=== PATIENT | female | born 1950 | race Two or more races ===

== ENCOUNTER 2020-01-19 11:16 | Inpatient (IN) | payer MEDICARE, MEDICAID ==
[~2020-01-19] VITALS: Ht 152.4 cm; Wt 95.2 kg
[~2020-01-19 11:16] MED LIST: BACL10TA PO; CARV6.2551 PO; CELE100C82 PO; FLUT0.05 NAS; FLUT1INH6 IN; FURO1TAB31 PO; INSU100I33 SC; LISI2.5T47 PO; PREG75CA PO; RIV20T PO; SIMV-8 PO; SITA50TA28 PO; SPIR25TA8 PO; TRAM50TA2 PO
[2020-01-19 11:47] LABS: Basophils # (auto) 0 10 ^3/uL (0-0.2); Basophils % (auto) 0.4 % (0.0-2.0); Eosinophils # (auto) 0.2 10 ^3/uL (0-0.8); Eosinophils % (auto) 1.9 % (0.0-7.0); Hematocrit 40.7 % (36.0-46.0); Hemoglobin 13.4 g/dL (12.2-16.2); Lymphocytes # (auto) 1.1 10 ^3/uL (0.4-5.4); Lymphocytes % (auto) 11.6 % (10.0-50.0); Mean Corpuscular Hemoglobin 29.8 pg (28.0-32.0); Mean Corpuscular Volume 90.4 fL (80.0-100.0); Monocytes # (auto) 0.6 10 ^3/uL (0-1.3); Monocytes % (auto) 6.3 % (0.0-12.0); Neutrophils # (auto) 7.8 10 ^3/uL (1.6-8.6); Neutrophils % (auto) 79.8 % (37.0-80.0); Nucleated Red Blood Cells % 0.1 %; Platelet Count (auto) 192 10^3/uL (140-450); Red Cell Distribution Width 16.8 % (11.8-14.3); White Blood Cell 9.8 10^3/uL (4.4-10.8)
[2020-01-19 12:04] LABS: Albumin 3.3 g/dL (3.4-5.0); Anion Gap 9 (5-15); Blood Urea Nitrogen 44 mg/dL (7-18); Calcium 8.7 mg/dL (8.5-10.1); Carbon Dioxide 24 mmol/L (21-32); Chloride 103 mmol/L (98-107); Glucose 113 mg/dL (74-106); Magnesium 2.6 mg/dL (1.6-2.6); Potassium 4.6 mmol/L (3.5-5.1); Sodium 136 mmol/L (136-145)
[2020-01-19 12:10] LABS: Alanine Aminotransferase 17 U/L (13-56); Alkaline Phosphatase 75 U/L (45-117); Aspartate Aminotransferase 14 U/L (15-37); BUN/Creatinine Ratio 23.9; Bilirubin, Total 0.5 mg/dL (0.2-1.0); GFR African American 35 mL/min; GFR Non-African American 29 mL/min; Total Protein 7.1 g/dL (6.4-8.2)
[2020-01-19] MEDS ORDERED: ONDANSETRON HCL 4 MG/2 ML VIAL IV ONE (12:15)
[2020-01-19] MEDS ORDERED: MORPHINE SULF INJ 2 MG/ML SYRINGE 1ML IV ONE (12:15)
[2020-01-19 12:53] LABS: INR 1.3 (0.9-1.15); Partial Thromboplastin Time 40.7 sec (23.64-32.05)
[2020-01-19] MEDS ORDERED: ASPirin 81 mg TAB PO ONE (14:15)
[2020-01-19] MEDS ORDERED: ACETAMINOPHEN 500 MG TAB PO PRN (14:15)
[2020-01-19] MEDS ORDERED: NITROGLYCERIN 0.4 MG SL TAB SL PRN (14:15)
[2020-01-19] MEDS ORDERED: HYDROcodone-ACET 5/325MG TAB PO PRN (14:15)
[2020-01-19] MEDS ORDERED: hydrALAZINE HCL 20 MG/ML VL IV PRN (14:15)
[2020-01-19] MEDS ORDERED: DEXTROSE (50%) 50ML SYRG IV PRN (14:15)
[2020-01-19] MEDS ORDERED: MORPHINE SULF INJ 2 MG/ML SYRINGE 1ML IV PRN ×2 (14:15)
--- NOTE | 2020-01-19 15:45 | NUR ---
PT ARRIVED TO UNIT FROM ER VIA GURNEY. PT AWAKE, ALERT, ORIENTEDx4. EFFORTLESS BREATHING ON 2LNC. DENIES CP, SOB AT MOMENT. COLOSTOMY BAG IN PLACE, VACANT AT MOMENT, PT REPORTS RECENT CHANGE. PT ORIENTED TO ROOM ENVIRONMENT, BED LOCKED AND IN LOWEST POSITION, CALL LIGHT WITHIN REACH. WILL CONTINUE TO MONITOR.
[2020-01-19 16:47] VITALS: BP 94/65
[2020-01-19] MEDS: InsuLIN REG 1unit/0.01ml Soln (100units/ml) SC SCH ×2 (17:00→22:00)
[2020-01-19] MEDS: ONDANSETRON HCL 4 MG/2 ML VIAL IV PRN (17:58)
[2020-01-19] MEDS: ACCU-CHEK COMFORT CURVE STRIP VI SCH ×2 (17:58→22:06)
[2020-01-19] MEDS: RIVAROXABAN 20 MG TAB PO SCH (17:58)
--- NOTE | 2020-01-19 19:30 | NUR ---
Opening Shift Note Report received from day shift RN. Assumed care of patient, awake and A&O x4. No S/S of distress/SOB noted and denies pain at this time. Patient has colostomy to LLQ, clean and intact. Bed locked and left in the lowest position with the side rails up x2 and the call light is left within reach. Instructed on POC and to call for assist PRN, will continue to monitor for changes Q1hr and PRN.
[2020-01-19 21:34] VITALS: BP 114/33
[2020-01-19] MEDS: CARVEDILOL 3.125 MG TAB PO SCH (21:47)
[2020-01-19] MEDS: ATORVASTATIN 20 MG TAB PO SCH (21:58)
[2020-01-19] MEDS: FAMOTIDINE 20 MG TAB PO SCH (21:58)
[2020-01-19] MEDS: CELECOXIB 100 MG CAP PO SCH (21:59)
[2020-01-19 22:00] VITALS: BP 107/60
[2020-01-19] MEDS ORDERED: METOPROLOL TARTRATE 25 MG TAB PO SCH (22:00)
[2020-01-19] MEDS ORDERED: PATIENTS OWN MEDICATION (Simvastatin 20 MG) PO SCH (22:00)
[2020-01-19] MEDS: BACLOFEN 10 MG TAB PO SCH (22:00)
--- NOTE | 2020-01-19 22:00 | NUR ---
BP REASSESSMENT LOW BP REPORTED, BP REASSESSMENT: 107/60
[2020-01-20 05:04] VITALS: BP 104/41
--- NOTE | 2020-01-20 05:35 | NUR ---
NEW IV ACCESS OBTAINED BY INSERTING A 22G TO THE RIGHT FOREARM. PATIENT TOLERATED WELL.
[2020-01-20] MEDS: BACLOFEN 10 MG TAB PO SCH ×3 (05:36→22:30)
[2020-01-20 06:43] LABS: Basophils # (auto) 0 10 ^3/uL (0-0.2); Basophils % (auto) 0.6 % (0.0-2.0); Eosinophils # (auto) 0.2 10 ^3/uL (0-0.8); Eosinophils % (auto) 2.9 % (0.0-7.0); Hematocrit 37.1 % (36.0-46.0); Hemoglobin 12.3 g/dL (12.2-16.2); Lymphocytes # (auto) 1.4 10 ^3/uL (0.4-5.4); Lymphocytes % (auto) 21.1 % (10.0-50.0); Mean Corpuscular Hgb Conc. 33.3 g/dL (32.0-36.0); Mean Corpuscular Volume 90.3 fL (80.0-100.0); Monocytes # (auto) 0.6 10 ^3/uL (0-1.3); Monocytes % (auto) 8.8 % (0.0-12.0); Neutrophils # (auto) 4.5 10 ^3/uL (1.6-8.6); Neutrophils % (auto) 66.6 % (37.0-80.0); Nucleated Red Blood Cells % 0.1 %; Platelet Count (auto) 198 10^3/uL (140-450); Red Blood Cells 4.11 10^6/uL (4.0-5.20); Red Cell Distribution Width 16.3 % (11.8-14.3); White Blood Cell 6.7 10^3/uL (4.4-10.8)
[2020-01-20 06:56] LABS: INR 1.45 (0.9-1.15); Partial Thromboplastin Time 46.5 sec (23.64-32.05)
[2020-01-20] MEDS: InsuLIN REG 1unit/0.01ml Soln (100units/ml) SC SCH ×4 (07:00→22:59)
[2020-01-20 07:05] LABS: Potassium 5.1 mmol/L (3.5-5.1)
[2020-01-20 07:09] LABS: BUN/Creatinine Ratio 22.3
[2020-01-20] MEDS: ACCU-CHEK COMFORT CURVE STRIP VI SCH ×4 (07:15→22:33)
[2020-01-20] MEDS ORDERED: ADENOSINE 79 MG in GIVE UN-DILUTED 0 ML IV STA (08:30)
[2020-01-20 09:00] VITALS: BP 109/55
[2020-01-20] MEDS: CARVEDILOL 3.125 MG TAB PO SCH ×2 (10:00→22:00)
[2020-01-20] MEDS: LISINOPRIL 10 MG TAB PO SCH (10:00)
[2020-01-20] MEDS: ASPirin-EC 81 mg tab PO SCH (10:41)
[2020-01-20] MEDS: CELECOXIB 100 MG CAP PO SCH ×2 (10:43→22:30)
[2020-01-20 13:00] VITALS: BP 105/43
[2020-01-20 16:22] VITALS: BP 122/54
[2020-01-20] MEDS: RIVAROXABAN 20 MG TAB PO SCH (17:33)
--- NOTE | 2020-01-20 18:33 | NUR ---
COLOSTOMY BAG EMPTY 375ML.
--- NOTE | 2020-01-20 19:45 | NUR ---
Opening Shift Note Assumed care of patient, patient slovak speaking, dry color tester at bedside, awake and alert, oriented x 4, clear speech, follows direction. On oxygen at 2L via NC with even and unlabored respirations, no S/S of distress/SOB. Patient has colostomy to LLQ with small amount of soft brown stool, released gas. Patient is able to turn independently in bed. PIV right forearm 22g intact and patent. Bed in lowest locked position with side rails up x 2 and call light within reach. Instructed on POC for LHC and NPO after midnight, patient verbalized understanding. Instructed to call for assist PRN, will continue to monitor for changes Q1hr and PRN.
[2020-01-20 22:00] VITALS: BP 101/48
[2020-01-20] MEDS: FAMOTIDINE 20 MG TAB PO SCH (22:29)
[2020-01-20] MEDS: ATORVASTATIN 20 MG TAB PO SCH (22:30)
--- NOTE | 2020-01-21 01:00 | NUR ---
Rounds patient resting in bed with eyes closed, noted chest rise and fall with even and unlabored respirations, no s/s of distress or SOB. Bed in lowest locked position with side rails up x 2 and call light within reach. will continue to monitor.
[2020-01-21 05:00] VITALS: BP 95/50
--- NOTE | 2020-01-21 05:25 | NUR ---
Colostomy changed colostomy was leaking, emptied 100ml loose brown stool. new colostomy was applied to patient. patient tolerated well.
--- NOTE | 2020-01-21 05:45 | NUR ---
EKG done per orders. placed in hard chart.
[2020-01-21] MEDS: BACLOFEN 10 MG TAB PO SCH ×3 (05:53→21:37)
[2020-01-21] MEDS: InsuLIN REG 1unit/0.01ml Soln (100units/ml) SC SCH ×4 (06:14→21:58)
[2020-01-21] MEDS: ACCU-CHEK COMFORT CURVE STRIP VI SCH ×4 (06:14→21:49)
[2020-01-21 06:17] LABS: Basophils # (auto) 0 10 ^3/uL (0-0.2); Basophils % (auto) 0.3 % (0.0-2.0); Eosinophils # (auto) 0.2 10 ^3/uL (0-0.8); Eosinophils % (auto) 2.5 % (0.0-7.0); Hematocrit 37.2 % (36.0-46.0); Hemoglobin 12.6 g/dL (12.2-16.2); Lymphocytes # (auto) 1.2 10 ^3/uL (0.4-5.4); Mean Corpuscular Hemoglobin 30.4 pg (28.0-32.0); Mean Corpuscular Hgb Conc. 33.7 g/dL (32.0-36.0); Mean Corpuscular Volume 90.3 fL (80.0-100.0); Monocytes # (auto) 0.5 10 ^3/uL (0-1.3); Monocytes % (auto) 8.4 % (0.0-12.0); Neutrophils # (auto) 4.2 10 ^3/uL (1.6-8.6); Neutrophils % (auto) 68.8 % (37.0-80.0); Nucleated Red Blood Cells % 0.1 %; Platelet Count (auto) 196 10^3/uL (140-450); Red Blood Cells 4.12 10^6/uL (4.0-5.20); Red Cell Distribution Width 16.2 % (11.8-14.3); White Blood Cell 6.1 10^3/uL (4.4-10.8)
[2020-01-21 06:23] LABS: INR 1.54 (0.9-1.15); Partial Thromboplastin Time 48.6 sec (23.64-32.05)
[2020-01-21 06:29] LABS: Potassium 4.4 mmol/L (3.5-5.1)
[2020-01-21 06:36] LABS: Albumin 3.1 g/dL (3.4-5.0); BUN/Creatinine Ratio 22.2; Calcium 8.7 mg/dL (8.5-10.1)
[2020-01-21 06:39] LABS: Bilirubin, Total 0.7 mg/dL (0.2-1.0); Total Protein 6.6 g/dL (6.4-8.2)
--- NOTE | 2020-01-21 06:49 | NUR ---
Closing Note patient resting in bed with oxygen on, even and unlabored respirations. no s/s of distress or SOB. patient remains NPO. PIV right forearm 22g intact and patent. Bed in lowest locked position with side rails up x 2 and call light within reach.
--- NOTE | 2020-01-21 07:35 | NUR ---
Opening Note Received report from rn night RN. Patient is resting in bed, no signs or symptoms of distress noted at this time. Patient is on 2L NC, respirations even and unlabored. Patient is NPO for scheduled procedure today. Be in low and locked position, call light within reach. Will continue to monitor Q1 hour and PRN.
[2020-01-21] MEDS ORDERED: LIDOCAINE 2%HCL (LOCAL ANESTH.) INJ 20ML MDV ONE ×2 (08:04→12:26)
[2020-01-21] MEDS ORDERED: IODIXANOL 320MG/ML 100ML BTL IV ONE ×2 (08:04→12:26)
--- NOTE | 2020-01-21 08:55 | NUR ---
Consents signed Consents for left heart cath signed and placed in patients, translated by Devorah COVINGTON. Will continue to monitor Q1 hour and PRN.
[2020-01-21 09:00] VITALS: BP 110/31
[2020-01-21] MEDS: ONDANSETRON HCL 4 MG/2 ML VIAL IV PRN ×2 (09:00→21:37)
--- NOTE | 2020-01-21 09:00 | NUR ---
Nausea Patient complains of nausea, will mediate per orders. Will continue to monitor Q1 hour and PRN.
[2020-01-21] MEDS: CARVEDILOL 3.125 MG TAB PO SCH ×2 (09:24→21:37)
[2020-01-21] MEDS: ASPirin-EC 81 mg tab PO SCH (09:24)
[2020-01-21] MEDS: CELECOXIB 100 MG CAP PO SCH ×2 (09:25→21:36)
[2020-01-21] MEDS: FUROSEMIDE 20 MG TAB PO SCH (09:26)
[2020-01-21] MEDS: POTASSIUM CHL 20 Meq TABLET PO SCH (09:26)
[2020-01-21] MEDS: LISINOPRIL 10 MG TAB PO SCH (09:27)
--- NOTE | 2020-01-21 11:19 | NUR ---
Dr. Laurence Salvador at bedside Discussing plan of care with patient and this RN. No new orders received. Will continue to monitor Q1 hour and PRN.
--- NOTE | 2020-01-21 12:06 | NUR ---
Patient taken down to wood preserving plant laborer
[2020-01-21 13:00] VITALS: BP 104/44
[2020-01-21] MEDS ORDERED: ANGIOMAX 250 MG VIAL IV ONE (13:15)
[2020-01-21] MEDS ORDERED: fentaNYL CITRATE 100 MCG/2 ML VL ONE (13:41)
[2020-01-21] MEDS ORDERED: MIDAZOLAM HCL 1MG/1ML-2 ML VIAL ONE (13:42)
[2020-01-21] MEDS ORDERED: TICAGRELOR 90 MG TAB ONE (13:46)
[2020-01-21] MEDS ORDERED: SODIUM CHL 0.9% 50 ML ONE (13:46)
--- NOTE | 2020-01-21 13:48 | NUR ---
Patient back form construction laborer Patient is s/p left heart cath. Per report patient is to lay flat until 1600. Dressing top right groin clean, dry and intact. Area soft when palpated. Patient denies pain at this time. Patient educated and verbalized understanding. Bed in low and locked position, call light within reach. Bed alarm on for safety. Will continue to monitor Q1 hour and PRN.
[2020-01-21] MEDS ORDERED: SODIUM CHL 0.9% 500 ML IV ONE (14:00)
[2020-01-21 17:00] VITALS: BP 117/48
[2020-01-21] MEDS: RIVAROXABAN 20 MG TAB PO SCH (17:40)
--- NOTE | 2020-01-21 18:25 | NUR ---
Colostomy emptied 150mls loose brown stool emptied
--- NOTE | 2020-01-21 19:15 | NUR ---
Closing Note Report given to manufacturing supervisor 2nd shift RN.No signs or symptoms of distress noted at this time.
[2020-01-21 20:20] VITALS: BP 146/51
[2020-01-21 21:00] VITALS: BP 106/51
[2020-01-21] MEDS: TICAGRELOR 90 MG TAB PO SCH (21:35)
[2020-01-21] MEDS: FAMOTIDINE 20 MG TAB PO SCH (21:36)
[2020-01-21] MEDS: ATORVASTATIN 20 MG TAB PO SCH (21:36)
[2020-01-22 04:50] VITALS: BP 102/51
[2020-01-22 06:01] LABS: Basophils # (auto) 0 10 ^3/uL (0-0.2); Basophils % (auto) 0.2 % (0.0-2.0); Eosinophils # (auto) 0.1 10 ^3/uL (0-0.8); Eosinophils % (auto) 1.2 % (0.0-7.0); Hematocrit 35.8 % (36.0-46.0); Hemoglobin 12.3 g/dL (12.2-16.2); Lymphocytes # (auto) 0.8 10 ^3/uL (0.4-5.4); Lymphocytes % (auto) 10.1 % (10.0-50.0); Mean Corpuscular Hemoglobin 30.3 pg (28.0-32.0); Mean Corpuscular Hgb Conc. 34.3 g/dL (32.0-36.0); Mean Corpuscular Volume 88.4 fL (80.0-100.0); Monocytes # (auto) 0.7 10 ^3/uL (0-1.3); Monocytes % (auto) 8.7 % (0.0-12.0); Neutrophils # (auto) 6.2 10 ^3/uL (1.6-8.6); Neutrophils % (auto) 79.8 % (37.0-80.0); Platelet Count (auto) 204 10^3/uL (140-450); Red Blood Cells 4.05 10^6/uL (4.0-5.20); Red Cell Distribution Width 16.1 % (11.8-14.3); White Blood Cell 7.7 10^3/uL (4.4-10.8)
[2020-01-22 06:19] LABS: Albumin 3.2 g/dL (3.4-5.0); Calcium 8.7 mg/dL (8.5-10.1); Potassium 4.4 mmol/L (3.5-5.1)
[2020-01-22 06:22] LABS: BUN/Creatinine Ratio 17.3; Bilirubin, Total 0.9 mg/dL (0.2-1.0); Total Protein 6.7 g/dL (6.4-8.2)
[2020-01-22] MEDS: BACLOFEN 10 MG TAB PO SCH ×3 (06:53→21:29)
[2020-01-22] MEDS: InsuLIN REG 1unit/0.01ml Soln (100units/ml) SC SCH ×4 (06:55→22:26)
[2020-01-22] MEDS: ACCU-CHEK COMFORT CURVE STRIP VI SCH ×4 (06:55→22:26)
--- NOTE | 2020-01-22 07:40 | NUR ---
Opening Note Received report from restaurant shift leader RN. Patient is awake, alert and oriented. Patient is on room air, respirations even and unlabored. Dressing to right groin is clean, dry and intact. Patient denies pain at this time. Bed in low and locked position, call light within reach. Will continue to monitor Q1 hour and PRN.
[2020-01-22 09:00] VITALS: BP 119/54
[2020-01-22] MEDS: POTASSIUM CHL 20 Meq TABLET PO SCH (09:48)
[2020-01-22] MEDS: ASPirin-EC 81 mg tab PO SCH (09:48)
[2020-01-22] MEDS: CELECOXIB 100 MG CAP PO SCH ×2 (09:49→21:29)
[2020-01-22] MEDS: TICAGRELOR 90 MG TAB PO SCH ×2 (09:49→21:28)
[2020-01-22] MEDS: LISINOPRIL 10 MG TAB PO SCH (09:49)
[2020-01-22] MEDS: CARVEDILOL 3.125 MG TAB PO SCH ×2 (09:49→22:00)
[2020-01-22] MEDS: FUROSEMIDE 20 MG TAB PO SCH (09:49)
--- NOTE | 2020-01-22 09:59 | NUR ---
Dr. Laurence Salvador at bedside Discussing plan of care with patient and this RN. Will continue to monitor Q1 hour and PRN.
[2020-01-22 13:00] VITALS: BP 118/63
[2020-01-22] MEDS: RIVAROXABAN 20 MG TAB PO SCH (16:59)
[2020-01-22 17:00] VITALS: BP 134/53
--- NOTE | 2020-01-22 19:05 | NUR ---
Closing Note Report given to maintenance technician 2nd shift RN. Patient resting in bed, no signs or symptoms of distress noted at this time.
--- NOTE | 2020-01-22 19:25 | NUR ---
Opening Shift Note Assumed care of patient, awake and alert. No S/S of distress/SOB or pain. Instructed on POC and to call for assist PRN, will continue to monitor for changes Q1hr and PRN. Call light and bedside table are within reach. Safety precautions maintained bed rails 2x and bed is in lowest position.
[2020-01-22] MEDS: FAMOTIDINE 20 MG TAB PO SCH (21:28)
[2020-01-22] MEDS: ATORVASTATIN 20 MG TAB PO SCH (21:29)
[2020-01-22 21:52] VITALS: BP 124/39
--- NOTE | 2020-01-23 04:38 | NUR ---
Endorsed care to Christine COVINGTON Gave report.
--- NOTE | 2020-01-23 04:40 | NUR ---
Opening Shift Note/ REPORT RECEIVED FROM JEMIMA COVINGTON Assumed care of patient, awake and alert. No S/S of distress/SOB or pain. Instructed on POC and to call for assist PRN, will continue to monitor for changes Q1hr and PRN. bed in low position call light within reach. bed alarm on.
[2020-01-23 05:55] LABS: Albumin 3.2 g/dL (3.4-5.0); Calcium 8.6 mg/dL (8.5-10.1); Potassium 4.6 mmol/L (3.5-5.1)
[2020-01-23 06:00] VITALS: BP 136/70
[2020-01-23 06:00] LABS: BUN/Creatinine Ratio 14.9; Bilirubin, Total 0.9 mg/dL (0.2-1.0); Total Protein 6.6 g/dL (6.4-8.2)
[2020-01-23] MEDS: BACLOFEN 10 MG TAB PO SCH (06:17)
[2020-01-23] MEDS: ACCU-CHEK COMFORT CURVE STRIP VI SCH ×2 (06:22→11:30)
[2020-01-23] MEDS: InsuLIN REG 1unit/0.01ml Soln (100units/ml) SC SCH ×2 (06:22→11:30)
--- NOTE | 2020-01-23 07:20 | NUR ---
REPORT GIVEN TO NELIA COVINGTON. PATIENT DENIES SOB DISTRESS OR PAIN. FALL PRECAUTIONS IN PLACE
--- NOTE | 2020-01-23 07:25 | NUR ---
Opening Note Received report from maintenance supervisor 2nd shift RN. Patient is resting in bed, no signs or symptoms of distress noted at this time. Patient is on 2L NC, respirations even and unlabored. Bed in low and locked position, call light within reach. Will continue to monitor Q1 hour and PRN
[2020-01-23 09:00] VITALS: BP 126/29
[2020-01-23] MEDS: FUROSEMIDE 20 MG TAB PO SCH (09:51)
[2020-01-23] MEDS: ASPirin-EC 81 mg tab PO SCH (09:51)
[2020-01-23] MEDS: POTASSIUM CHL 20 Meq TABLET PO SCH (09:51)
[2020-01-23] MEDS: CELECOXIB 100 MG CAP PO SCH (09:51)
[2020-01-23] MEDS: TICAGRELOR 90 MG TAB PO SCH (09:51)
[2020-01-23] MEDS: LISINOPRIL 10 MG TAB PO SCH (09:52)
[2020-01-23] MEDS: CARVEDILOL 3.125 MG TAB PO SCH (09:53)
--- NOTE | 2020-01-23 10:20 | NUR ---
Dr. Laurence Salvador at bedside Discussing plan of care with patient and this RN. Patient to discharge home today. Will continue to monitor Q1 hour and PRN.
[2020-01-23 11:03] VITALS: BP 126/29
--- NOTE | 2020-01-23 12:51 | NUR ---
Discharge Discharge instructions given as ordered. Encourage to follow up with PMD as instructed. All questions and concerns addressed. Patient verbalized understanding. Medication reconciliation form completed and copy given to patient. IV removed with catheter intact, pressure dressing applied. Telemetry unit returned to ICU. Patient taken to vehicle via wheelchair with all personal belongings, accompanied by staff member. No signs or symptoms of distress noted at this time.
== END 2020-01-23 12:50 | disposition home or self-care (01) | DRG 246 ==
LOC: ER 11:16 → EDBD 11:16 → TELE 11:17 → TELE-WESTW 15:58
PROVIDERS: ADMIT Nurse Practitioner Acute Care; ATTEND Family Medicine
PROC: 4A023N7 Measurement of Cardiac Sampling and Pressure, Left Heart, Percutaneous Approach (ICD-10-PCS; principal; 2020-01-21)
PROC: 027035Z Dilation of Coronary Artery, One Artery with Two Drug-eluting Intraluminal Devices, Percutaneous Approach (ICD-10-PCS; 2020-01-21)
PROC: B2111ZZ Fluoroscopy of Multiple Coronary Arteries using Low Osmolar Contrast (ICD-10-PCS; 2020-01-21)
PROC: B2131ZZ Fluoroscopy of Multiple Coronary Artery Bypass Grafts using Low Osmolar Contrast (ICD-10-PCS; 2020-01-21)
PROC: 4A033BC Measurement of Arterial Pressure, Coronary, Percutaneous Approach (ICD-10-PCS; 2020-01-21)
PROC: B3121ZZ Fluoroscopy of Left Subclavian Artery using Low Osmolar Contrast (ICD-10-PCS; 2020-01-21)
PROC: B2151ZZ Fluoroscopy of Left Heart using Low Osmolar Contrast (ICD-10-PCS; 2020-01-21)
PROC: B2181ZZ Fluoroscopy of Left Internal Mammary Bypass Graft using Low Osmolar Contrast (ICD-10-PCS; 2020-01-21)
PROC: B41C1ZZ Fluoroscopy of Pelvic Arteries using Low Osmolar Contrast (ICD-10-PCS; 2020-01-21)
DX: I25.10 Atherosclerotic heart disease of native coronary artery without angina pectoris (principal); N17.0 Acute kidney failure with tubular necrosis; I50.43 Acute on chronic combined systolic (congestive) and diastolic (congestive) heart failure; I13.0 Hypertensive heart and chronic kidney disease with heart failure and stage 1 through stage 4 chronic kidney disease, or unspecified chronic kidney disease; Z68.41 Body mass index [BMI] 40.0-44.9, adult; N18.4 Chronic kidney disease, stage 4 (severe); I95.9 Hypotension, unspecified; E66.9 Obesity, unspecified; E11.22 Type 2 diabetes mellitus with diabetic chronic kidney disease; E11.40 Type 2 diabetes mellitus with diabetic neuropathy, unspecified; E78.5 Hyperlipidemia, unspecified; F41.9 Anxiety disorder, unspecified; E66.01 Morbid (severe) obesity due to excess calories; E78.00 Pure hypercholesterolemia, unspecified; J44.9 Chronic obstructive pulmonary disease, unspecified; Z79.4 Long term (current) use of insulin; Z93.3 Colostomy status; Z95.2 Presence of prosthetic heart valve; Z79.899 Other long term (current) drug therapy; Z85.038 Personal history of other malignant neoplasm of large intestine; Z85.42 Personal history of malignant neoplasm of other parts of uterus; Z86.718 Personal history of other venous thrombosis and embolism; Z87.891 Personal history of nicotine dependence; Z95.5 Presence of coronary angioplasty implant and graft; Z95.1 Presence of aortocoronary bypass graft; Z79.84 Long term (current) use of oral hypoglycemic drugs; Z90.710 Acquired absence of both cervix and uterus
CPT/HCPCS: 36225; 36415; 71045; 75736; 78452; 80048; 80053; 82962; 83036; 83735; 83880; 84443; 84484; 85025; 85610; 85730; 86141; 86850; 86900; 86901; 92928; 93005; 93017; 93306; 93458; 93571; 99152; 99153; C1874; C1887; G0378; J0153; J1815; J2250; J2405; Q9967

== ENCOUNTER 2021-11-20 08:38 | Inpatient (IN) | payer MEDICARE, MEDICAID ==
[~2021-11-20] VITALS: Ht 152.4 cm; Wt 107.9 kg
[2021-11-20 01:11] VITALS: BP 116/34
[2021-11-20] MEDS ORDERED: SODIUM CHLORIDE 0.9% 1,000 ML IV ONE (09:30)
[2021-11-20 10:00] LABS: Albumin 3.3 g/dL (3.4-5.0); Calcium 8.7 mg/dL (8.5-10.1); Magnesium 3.7 mg/dL (1.6-2.6); Potassium 5.2 mmol/L (3.5-5.1)
[2021-11-20 10:05] LABS: BUN/Creatinine Ratio 27.3; Bilirubin, Total 0.4 mg/dL (0.2-1.0); Total Protein 6.8 g/dL (6.4-8.2)
[2021-11-20 10:15] LABS: Basophils # (auto) 0 10 ^3/uL (0-0.2); Basophils % (auto) 0.4 % (0.0-2.0); Eosinophils # (auto) 0.2 10 ^3/uL (0-0.8); Hemoglobin 7.8 g/dL (12.2-16.2); Monocytes # (auto) 0.9 10 ^3/uL (0-1.3)
[2021-11-20 10:18] LABS: Eosinophils % (auto) 2.1 % (0.0-7.0); Hematocrit 25.3 % (36.0-46.0); Lymphocytes % (auto) 10.1 % (10.0-50.0); Mean Corpuscular Hemoglobin 21.6 pg (28.0-32.0); Mean Corpuscular Hgb Conc. 30.9 g/dL (32.0-36.0); Monocytes % (auto) 8.9 % (0.0-12.0); Neutrophils # (auto) 7.8 10 ^3/uL (1.6-8.6); Neutrophils % (auto) 78.5 % (37.0-80.0); Red Blood Cells 3.62 10^6/uL (4.0-5.20); Red Cell Distribution Width 20.4 % (11.8-14.3)
[2021-11-20] MEDS ORDERED: DEXTROSE 50% SYRINGE 50 ML IV ONE (10:21)
[2021-11-20] MEDS ORDERED: DEXTROSE (50%) 50ML SYRG IV ONE ×2 (10:30→17:15)
[2021-11-20 12:41] LABS: Urine Bacteria NONE SEEN /hpf (None Seen); Urine Blood Negative /uL (Negative); Urine Specific Gravity 1.015 (1.001-1.035); Urine WBC <1 /hpf (0 - 5)
[2021-11-20] MEDS ORDERED: SODIUM ZIRCONIUM CYCL 10 GM PAK PO ONE (13:45)
[2021-11-20] MEDS ORDERED: SODIUM BICARBONATE 8.4% INJ 50ML SYRINGE IV ONE (13:45)
[2021-11-20] MEDS ORDERED: CALCIUM GLUC 1,000mg/50ml-NS 50 ML IV ONE (13:45)
[2021-11-20] MEDS ORDERED: FUROSEMIDE 20 MG/2 ML VIAL IV ONE (13:45)
[2021-11-20] MEDS ORDERED: NITROGLYCERIN 0.4 MG SL TAB SL PRN (15:30)
[2021-11-20] MEDS ORDERED: MORPHINE SULFATE INJECTION 2 MG/ML SYRG IV PRN ×2 (15:30→19:15)
[2021-11-20] MEDS ORDERED: D5W 5% 1,000 ML IV SCH (17:15)
[2021-11-20] MEDS ORDERED: LACTULOSE 20Gm/30ML SOLN PO PRN (19:15)
[2021-11-20] MEDS ORDERED: hydrALAZINE HCL 20 MG/ML VL IV PRN (19:15)
[2021-11-20] MEDS ORDERED: IPRATROPIUM BROM 0.5 MG/2.5ML INH SOL NEB ONE (19:15)
[2021-11-20] MEDS ORDERED: HYDROcodone-ACET 5/325MG TAB PO ONE (19:15)
[2021-11-20] MEDS ORDERED: HYDROcodone-ACET 5/325MG TAB PO PRN (19:15)
[2021-11-20] MEDS ORDERED: DOCUSATE SOD 100 MG CAP PO PRN (19:15)
[2021-11-20] MEDS ORDERED: SODIUM CHLORIDE 0.9% 1,000 ML IV SCH (19:15)
[2021-11-20] MEDS ORDERED: IPRATROPIUM BROM 0.5 MG/2.5ML INH SOL NEB PRN (22:00)
[2021-11-20] MEDS ORDERED: IPRATROPIUM BROM 0.5 MG/2.5ML INH SOL NEB SCH (22:00)
[2021-11-20 22:40] LABS: INR 1.21 (0.9-1.15); Partial Thromboplastin Time 36.6 sec (23.6-33.0)
[2021-11-20 22:47] LABS: Magnesium 3.1 mg/dL (1.6-2.6)
[2021-11-20 22:49] LABS: Phosphorus 3.6 mg/dL (2.5-4.90)
[2021-11-20] MEDS: PANTOPRAZOLE 40 MG/10 ML VIAL INJ IV SCH (23:00)
[2021-11-20] MEDS: ATORVASTATIN 20 MG TAB PO SCH (23:00)
[2021-11-21] VITALS (7 sets, daily range): BP systolic 124–138; BP diastolic 43–65
[2021-11-21 06:43] LABS: Basophils # (auto) 0 10 ^3/uL (0-0.2); Basophils % (auto) 0.2 % (0.0-2.0); Eosinophils # (auto) 0.1 10 ^3/uL (0-0.8); Hematocrit 22.5 % (36.0-46.0); Lymphocytes # (auto) 0.9 10 ^3/uL (0.4-5.4); Lymphocytes % (auto) 8.5 % (10.0-50.0); Mean Corpuscular Hemoglobin 21.3 pg (28.0-32.0); Mean Corpuscular Hgb Conc. 31.1 g/dL (32.0-36.0); Monocytes % (auto) 9.5 % (0.0-12.0); Neutrophils # (auto) 8.4 10 ^3/uL (1.6-8.6); Neutrophils % (auto) 80.8 % (37.0-80.0); Nucleated Red Blood Cells % 0.1 %; Red Blood Cells 3.28 10^6/uL (4.0-5.20); White Blood Cell 10.3 10^3/uL (4.4-10.8)
[2021-11-21 06:47] LABS: Mean Corpuscular Volume 68.5 fL (80.0-100.0); Red Cell Distribution Width 20.5 % (11.8-14.3)
[2021-11-21 06:48] LABS: Albumin 2.8 g/dL (3.4-5.0); Magnesium 3.2 mg/dL (1.6-2.6); Potassium 4.4 mmol/L (3.5-5.1)
[2021-11-21 06:49] LABS: INR 1.12 (0.9-1.15)
[2021-11-21 06:52] LABS: BUN/Creatinine Ratio 24.3; Bilirubin, Total 0.6 mg/dL (0.2-1.0); Phosphorus 2.8 mg/dL (2.5-4.90); Total Protein 6.1 g/dL (6.4-8.2)
[2021-11-21 07:01] LABS: % Iron Saturation 3.6 % (15-50)
[2021-11-21] MEDS: PANTOPRAZOLE 40 MG/10 ML VIAL INJ IV SCH ×2 (10:27→22:00)
[2021-11-21] MEDS: HYDROcodone-ACET 5/325MG TAB PO PRN (11:10)
[2021-11-21] MEDS ORDERED: LISINOPRIL 20 MG TAB PO ONE (13:30)
[2021-11-21] MEDS ORDERED: ASPirin 81 mg TAB PO ONE (13:30)
[2021-11-21] MEDS: SUCRALFATE 1 GM/10 ML ORAL SUSP PO SCH (18:02)
[2021-11-21] MEDS ORDERED: CELE100C82 PO (18:05)
[2021-11-21] MEDS ORDERED: TRAM50TA2 PO ×2 (18:08→18:10)
[2021-11-21] MEDS ORDERED: PREG75CA PO (18:21)
[2021-11-21] MEDS ORDERED: SITA50TA28 PO ×2 (18:22→18:24)
[2021-11-21] MEDS ORDERED: ASPI-543 PO (18:26)
[2021-11-21] MEDS: RIVAROXABAN 20 MG TAB PO SCH (21:00)
[2021-11-21] MEDS: METOPROLOL TARTRATE 25 MG TAB PO SCH (22:00)
[2021-11-21] MEDS: ATORVASTATIN 20 MG TAB PO SCH (22:00)
[2021-11-22] MEDS: ONDANSETRON HCL 4 MG/2 ML VIAL IV PRN ×2 (02:40→12:26)
[2021-11-22 05:00] VITALS: BP 126/68
[2021-11-22] MEDS: SUCRALFATE 1 GM/10 ML ORAL SUSP PO SCH ×2 (07:00→18:05)
[2021-11-22 07:17] LABS: Basophils # (auto) 0 10 ^3/uL (0-0.2); Hemoglobin 7.1 g/dL (12.2-16.2); Lymphocytes # (auto) 0.9 10 ^3/uL (0.4-5.4); Mean Corpuscular Hemoglobin 21.8 pg (28.0-32.0); Mean Corpuscular Hgb Conc. 31.7 g/dL (32.0-36.0); Monocytes # (auto) 1.1 10 ^3/uL (0-1.3); Nucleated Red Blood Cells % 0.1 %
[2021-11-22 07:19] LABS: Basophils % (auto) 0.2 % (0.0-2.0); Eosinophils # (auto) 0 10 ^3/uL (0-0.8); Eosinophils % (auto) 0.4 % (0.0-7.0); Hematocrit 22.5 % (36.0-46.0); Lymphocytes % (auto) 8.4 % (10.0-50.0); Mean Corpuscular Volume 68.9 fL (80.0-100.0); Monocytes % (auto) 10.4 % (0.0-12.0); Neutrophils # (auto) 8.2 10 ^3/uL (1.6-8.6); Neutrophils % (auto) 80.6 % (37.0-80.0); Red Blood Cells 3.27 10^6/uL (4.0-5.20); Red Cell Distribution Width 20.6 % (11.8-14.3); White Blood Cell 10.2 10^3/uL (4.4-10.8)
[2021-11-22 07:32] LABS: Alcohol, Urine < 3.0 mg/dL (0-10); Amphetamine Screen, Urine NEGATIVE (NEGATIVE); Barbiturate Scree,Urine NEGATIVE (NEGATIVE); Benzodiazephine Screen, Urine NEGATIVE (NEGATIVE); Cannabinoid Screen, Urine NEGATIVE (NEGATIVE); Cocaine Screen, Urine NEGATIVE (NEGATIVE); Opiate Scree,Urine NEGATIVE (NEGATIVE); Phencyclidine Screen, Urine NEGATIVE (NEGATIVE)
[2021-11-22 08:00] VITALS: BP 108/45
[2021-11-22 09:00] VITALS: BP_SYST 105; BP_SYST 108; BP_DIAS 39; BP_DIAS 52
[2021-11-22] MEDS: PANTOPRAZOLE 40 MG/10 ML VIAL INJ IV SCH ×2 (09:13→21:20)
[2021-11-22] MEDS: ASPirin 81 mg TAB PO SCH (09:13)
[2021-11-22] MEDS: METOPROLOL TARTRATE 25 MG TAB PO SCH ×2 (09:15→21:22)
[2021-11-22] MEDS: LISINOPRIL 20 MG TAB PO SCH (09:19)
[2021-11-22] MEDS: SODIUM FERR GLUC 62.5MG/5ML 125 MG in SODIUM CHL 0.9% 100 ML IV SCH (12:21)
[2021-11-22 13:00] VITALS: BP 106/43
[2021-11-22 16:04] LABS: Carcinoembryonic Antigen 0.51 ng/mL (<5.0 OR =); Folate (Folic Acid) 16.85 ng/mL (5.38-24)
[2021-11-22 16:42] VITALS: BP 122/48
[2021-11-22] MEDS: RIVAROXABAN 20 MG TAB PO SCH (18:05)
[2021-11-22 20:00] VITALS: BP 99/48
[2021-11-22] MEDS ORDERED: EPOETIN ALFA-EPBX 10,000 UNIT/1ML VIAL SC ONE (21:00)
[2021-11-22] MEDS: ATORVASTATIN 20 MG TAB PO SCH (21:21)
[2021-11-22] MEDS ORDERED: DEXTROSE (50%) 50ML SYRG IV ONE (23:45)
[2021-11-23] MEDS: SUCRALFATE 1 GM/10 ML ORAL SUSP PO SCH ×2 (06:44→17:06)
[2021-11-23 09:00] VITALS: BP 103/50
[2021-11-23] MEDS: ASPirin 81 mg TAB PO SCH (10:12)
[2021-11-23] MEDS: PANTOPRAZOLE 40 MG/10 ML VIAL INJ IV SCH ×2 (10:12→22:11)
[2021-11-23] MEDS: LISINOPRIL 20 MG TAB PO SCH (10:13)
[2021-11-23] MEDS: METOPROLOL TARTRATE 25 MG TAB PO SCH ×2 (10:13→22:00)
[2021-11-23] MEDS ORDERED: DEXTROSE (50%) 50ML SYRG IV PRN (11:30)
[2021-11-23 11:47] LABS: Basophils # (auto) 0 10 ^3/uL (0-0.2); Eosinophils # (auto) 0 10 ^3/uL (0-0.8); Eosinophils % (auto) 0.5 % (0.0-7.0); Monocytes # (auto) 0.9 10 ^3/uL (0-1.3); Neutrophils # (auto) 7.2 10 ^3/uL (1.6-8.6)
[2021-11-23 11:49] LABS: Basophils % (auto) 0.2 % (0.0-2.0); Hematocrit 23.2 % (36.0-46.0); Hemoglobin 7.2 g/dL (12.2-16.2); Lymphocytes # (auto) 0.7 10 ^3/uL (0.4-5.4); Lymphocytes % (auto) 8.1 % (10.0-50.0); Mean Corpuscular Hgb Conc. 31.1 g/dL (32.0-36.0); Monocytes % (auto) 9.6 % (0.0-12.0); Neutrophils % (auto) 81.6 % (37.0-80.0); Nucleated Red Blood Cells % 0.2 %; Red Blood Cells 3.37 10^6/uL (4.0-5.20); White Blood Cell 8.8 10^3/uL (4.4-10.8)
[2021-11-23 11:52] LABS: Mean Corpuscular Volume 68.9 fL (80.0-100.0)
[2021-11-23 11:53] LABS: Mean Corpuscular Hemoglobin 21.4 pg (28.0-32.0); Red Cell Distribution Width 21.1 % (11.8-14.3)
[2021-11-23] MEDS: InsuLIN REG 1unit/0.01ml Soln (100units/ml) SC SCH ×2 (12:00→18:00)
[2021-11-23] MEDS: ACCU-CHEK COMFORT CURVE STRIP VI SCH ×3 (12:15→23:49)
[2021-11-23] MEDS: SODIUM FERR GLUC 62.5MG/5ML 125 MG in SODIUM CHL 0.9% 100 ML IV SCH (12:17)
[2021-11-23 13:00] VITALS: BP 107/61
[2021-11-23 17:00] VITALS: BP 117/47
[2021-11-23] MEDS: LORazepam 0.5 MG TAB PO PRN (17:06)
[2021-11-23] MEDS: RIVAROXABAN 20 MG TAB PO SCH (17:06)
[2021-11-23 22:00] VITALS: BP 106/31
[2021-11-23] MEDS: ATORVASTATIN 20 MG TAB PO SCH (22:11)
[2021-11-24 05:00] VITALS: BP 118/41
[2021-11-24 05:44] VITALS: BP 118/52
[2021-11-24] MEDS: InsuLIN REG 1unit/0.01ml Soln (100units/ml) SC SCH ×5 (05:48→23:40)
[2021-11-24] MEDS: ACCU-CHEK COMFORT CURVE STRIP VI SCH ×4 (05:48→23:40)
[2021-11-24 05:55] LABS: Eosinophils # (auto) 0.2 10 ^3/uL (0-0.8); Hematocrit 22.4 % (36.0-46.0); Neutrophils # (auto) 7.3 10 ^3/uL (1.6-8.6); Nucleated Red Blood Cells % 0.5 %; White Blood Cell 9.6 10^3/uL (4.4-10.8)
[2021-11-24 05:59] LABS: Basophils # (auto) 0.1 10 ^3/uL (0-0.2); Basophils % (auto) 0.6 % (0.0-2.0); Eosinophils % (auto) 2.6 % (0.0-7.0); Hemoglobin 7.2 g/dL (12.2-16.2); Lymphocytes # (auto) 0.9 10 ^3/uL (0.4-5.4); Lymphocytes % (auto) 9.7 % (10.0-50.0); Mean Corpuscular Hemoglobin 22.3 pg (28.0-32.0); Mean Corpuscular Hgb Conc. 32.2 g/dL (32.0-36.0); Mean Corpuscular Volume 69.2 fL (80.0-100.0); Monocytes % (auto) 10.8 % (0.0-12.0); Neutrophils % (auto) 76.3 % (37.0-80.0); Red Blood Cells 3.24 10^6/uL (4.0-5.20)
[2021-11-24] MEDS: SUCRALFATE 1 GM/10 ML ORAL SUSP PO SCH ×2 (06:21→17:00)
[2021-11-24 06:30] LABS: Red Cell Distribution Width 20.5 % (11.8-14.3)
[2021-11-24 09:00] VITALS: BP 113/64
[2021-11-24] MEDS ORDERED: PANT40T PO (09:04)
[2021-11-24] MEDS ORDERED: SUCR1TAB22 OR (09:04)
[2021-11-24] MEDS ORDERED: FERR-7 PO (09:04)
[2021-11-24] MEDS: LISINOPRIL 20 MG TAB PO SCH (10:00)
[2021-11-24] MEDS: METOPROLOL TARTRATE 25 MG TAB PO SCH ×2 (10:00→22:00)
[2021-11-24] MEDS: ASPirin 81 mg TAB PO SCH (10:00)
[2021-11-24] MEDS: PANTOPRAZOLE 40 MG/10 ML VIAL INJ IV SCH ×2 (10:00→22:32)
[2021-11-24] MEDS: SODIUM FERR GLUC 62.5MG/5ML 125 MG in SODIUM CHL 0.9% 100 ML IV SCH (12:00)
[2021-11-24 16:41] VITALS: BP 104/36
[2021-11-24] MEDS: HYDROcodone-ACET 5/325MG TAB PO PRN (17:10)
[2021-11-24 18:05] VITALS: BP 108/42
[2021-11-24] MEDS: RIVAROXABAN 20 MG TAB PO SCH (18:12)
[2021-11-24] MEDS: ATORVASTATIN 20 MG TAB PO SCH ×2 (22:00→22:33)
[2021-11-24] MEDS ORDERED: VANCOMYCIN PER PHARMACY 0 MG IV SCH (22:30)
[2021-11-24] MEDS ORDERED: VANCOMYCIN 1GM/250ML 250 ML IV ONE (22:30)
[2021-11-25] MEDS: ACCU-CHEK COMFORT CURVE STRIP VI SCH ×4 (05:52→23:11)
[2021-11-25] MEDS: InsuLIN REG 1unit/0.01ml Soln (100units/ml) SC SCH ×4 (05:52→23:11)
[2021-11-25 06:13] LABS: Basophils # (auto) 0.1 10 ^3/uL (0-0.2); Hemoglobin 7.3 g/dL (12.2-16.2); Lymphocytes # (auto) 0.9 10 ^3/uL (0.4-5.4); Neutrophils # (auto) 7.4 10 ^3/uL (1.6-8.6); Neutrophils % (auto) 75.2 % (37.0-80.0); White Blood Cell 9.8 10^3/uL (4.4-10.8)
[2021-11-25 06:17] LABS: Basophils % (auto) 0.8 % (0.0-2.0); Eosinophils # (auto) 0.4 10 ^3/uL (0-0.8); Eosinophils % (auto) 4.5 % (0.0-7.0); Hematocrit 23.1 % (36.0-46.0); Lymphocytes % (auto) 9.3 % (10.0-50.0); Mean Corpuscular Hemoglobin 22.2 pg (28.0-32.0); Mean Corpuscular Hgb Conc. 31.7 g/dL (32.0-36.0); Mean Corpuscular Volume 70.2 fL (80.0-100.0); Monocytes % (auto) 10.2 % (0.0-12.0); Nucleated Red Blood Cells % 0.3 %; Red Blood Cells 3.29 10^6/uL (4.0-5.20); Red Cell Distribution Width 20.8 % (11.8-14.3)
[2021-11-25] MEDS: SUCRALFATE 1 GM/10 ML ORAL SUSP PO SCH ×2 (06:52→17:00)
[2021-11-25 09:00] VITALS: BP 119/39
[2021-11-25] MEDS: ASPirin 81 mg TAB PO SCH (09:30)
[2021-11-25] MEDS: PANTOPRAZOLE 40 MG/10 ML VIAL INJ IV SCH ×2 (09:30→23:11)
[2021-11-25] MEDS ORDERED: VANCOMYCIN 1GM/250ML 250 ML IV SCH (10:00)
[2021-11-25] MEDS: LISINOPRIL 20 MG TAB PO SCH (10:11)
[2021-11-25] MEDS: METOPROLOL TARTRATE 25 MG TAB PO SCH ×2 (10:11→22:00)
[2021-11-25] MEDS: SODIUM FERR GLUC 62.5MG/5ML 125 MG in SODIUM CHL 0.9% 100 ML IV SCH (12:00)
[2021-11-25 13:00] VITALS: BP 121/44
[2021-11-25 17:00] VITALS: BP 118/40
[2021-11-25] MEDS: RIVAROXABAN 20 MG TAB PO SCH (17:47)
[2021-11-25] MEDS ORDERED: VANCOMYCIN 750mg/250ml 250 ML IV ONE (18:00)
[2021-11-25 22:18] VITALS: BP 126/35
[2021-11-25] MEDS: ATORVASTATIN 20 MG TAB PO SCH (23:11)
[2021-11-26 05:00] VITALS: BP 129/34
[2021-11-26] MEDS: InsuLIN REG 1unit/0.01ml Soln (100units/ml) SC SCH ×3 (06:00→18:54)
[2021-11-26 06:37] LABS: Basophils # (auto) 0.1 10 ^3/uL (0-0.2); Basophils % (auto) 0.6 % (0.0-2.0); Eosinophils # (auto) 0.4 10 ^3/uL (0-0.8); Eosinophils % (auto) 3.8 % (0.0-7.0); Lymphocytes # (auto) 1.1 10 ^3/uL (0.4-5.4); Lymphocytes % (auto) 10.9 % (10.0-50.0); Monocytes # (auto) 1.1 10 ^3/uL (0-1.3)
[2021-11-26 06:40] LABS: Hematocrit 23.1 % (36.0-46.0); Hemoglobin 7.4 g/dL (12.2-16.2); Neutrophils # (auto) 7.2 10 ^3/uL (1.6-8.6); Neutrophils % (auto) 73.7 % (37.0-80.0); Nucleated Red Blood Cells % 0.4 %; Red Blood Cells 3.25 10^6/uL (4.0-5.20); White Blood Cell 9.8 10^3/uL (4.4-10.8)
[2021-11-26 06:47] LABS: Mean Corpuscular Hemoglobin 22.7 pg (28.0-32.0); Mean Corpuscular Volume 70.9 fL (80.0-100.0); Red Cell Distribution Width 20.7 % (11.8-14.3)
[2021-11-26] MEDS: ACCU-CHEK COMFORT CURVE STRIP VI SCH ×3 (06:50→18:54)
[2021-11-26] MEDS: SUCRALFATE 1 GM/10 ML ORAL SUSP PO SCH ×2 (06:50→18:53)
[2021-11-26 09:00] VITALS: BP 148/42
[2021-11-26] MEDS: PANTOPRAZOLE 40 MG/10 ML VIAL INJ IV SCH ×2 (10:33→22:26)
[2021-11-26] MEDS: LISINOPRIL 20 MG TAB PO SCH (10:44)
[2021-11-26] MEDS: METOPROLOL TARTRATE 25 MG TAB PO SCH ×2 (10:44→22:26)
[2021-11-26] MEDS: ASPirin 81 mg TAB PO SCH (10:45)
[2021-11-26 13:00] VITALS: BP 97/44
[2021-11-26] MEDS: SODIUM FERR GLUC 62.5MG/5ML 125 MG in SODIUM CHL 0.9% 100 ML IV SCH (13:08)
[2021-11-26 17:00] VITALS: BP 118/47
[2021-11-26] MEDS: RIVAROXABAN 20 MG TAB PO SCH (18:54)
[2021-11-26 22:20] VITALS: BP 138/46
[2021-11-26] MEDS: ATORVASTATIN 20 MG TAB PO SCH (22:26)
[2021-11-27 05:00] VITALS: BP 113/49
[2021-11-27] MEDS: SUCRALFATE 1 GM/10 ML ORAL SUSP PO SCH ×2 (05:05→18:31)
[2021-11-27 09:00] VITALS: BP 131/56
[2021-11-27] MEDS: PANTOPRAZOLE 40 MG/10 ML VIAL INJ IV SCH ×2 (11:33→21:52)
[2021-11-27] MEDS: ASPirin 81 mg TAB PO SCH (11:34)
[2021-11-27] MEDS: ACCU-CHEK COMFORT CURVE STRIP VI SCH ×4 (11:35→18:32)
[2021-11-27] MEDS: LISINOPRIL 20 MG TAB PO SCH (11:35)
[2021-11-27] MEDS: METOPROLOL TARTRATE 25 MG TAB PO SCH ×2 (11:35→21:53)
[2021-11-27] MEDS: InsuLIN REG 1unit/0.01ml Soln (100units/ml) SC SCH ×4 (11:46→18:37)
[2021-11-27] MEDS ORDERED: MILK OF MAGNESIA 30ML SUSP PO PRN (12:00)
[2021-11-27] MEDS: SODIUM FERR GLUC 62.5MG/5ML 125 MG in SODIUM CHL 0.9% 100 ML IV SCH (12:59)
[2021-11-27 13:00] VITALS: BP 122/44
[2021-11-27 17:00] VITALS: BP 124/58
[2021-11-27] MEDS: RIVAROXABAN 20 MG TAB PO SCH (18:32)
[2021-11-27] MEDS: DOCUSATE SOD 100 MG CAP PO SCH (21:52)
[2021-11-27] MEDS: ATORVASTATIN 20 MG TAB PO SCH (21:52)
[2021-11-27 22:00] VITALS: BP 132/61
[2021-11-28] MEDS: SUCRALFATE 1 GM/10 ML ORAL SUSP PO SCH ×2 (04:54→16:33)
[2021-11-28 05:00] VITALS: BP 118/52
[2021-11-28] MEDS: InsuLIN REG 1unit/0.01ml Soln (100units/ml) SC SCH ×4 (06:00→17:46)
[2021-11-28] MEDS: ACCU-CHEK COMFORT CURVE STRIP VI SCH ×4 (06:11→17:41)
[2021-11-28 09:00] VITALS: BP 136/56
[2021-11-28] MEDS: PANTOPRAZOLE 40 MG/10 ML VIAL INJ IV SCH ×2 (09:51→22:32)
[2021-11-28] MEDS: DOCUSATE SOD 100 MG CAP PO SCH ×2 (09:52→22:32)
[2021-11-28] MEDS: METOPROLOL TARTRATE 25 MG TAB PO SCH ×2 (09:53→22:33)
[2021-11-28] MEDS: ASPirin 81 mg TAB PO SCH (09:53)
[2021-11-28] MEDS: FUROSEMIDE 40 MG/4 ML VIAL IV SCH (09:54)
[2021-11-28] MEDS: LISINOPRIL 20 MG TAB PO SCH (09:54)
[2021-11-28 13:00] VITALS: BP 137/57
[2021-11-28] MEDS: SODIUM FERR GLUC 62.5MG/5ML 125 MG in SODIUM CHL 0.9% 100 ML IV SCH (13:27)
[2021-11-28] MEDS: HYDROcodone-ACET 5/325MG TAB PO PRN (16:33)
[2021-11-28 16:38] VITALS: BP 124/57
[2021-11-28] MEDS: RIVAROXABAN 20 MG TAB PO SCH (17:41)
[2021-11-28 22:00] VITALS: BP 125/42
[2021-11-28] MEDS: ATORVASTATIN 20 MG TAB PO SCH (22:32)
[2021-11-28] MEDS: LORazepam 0.5 MG TAB PO PRN (22:38)
[2021-11-29] MEDS: ACCU-CHEK COMFORT CURVE STRIP VI SCH ×5 (00:03→23:43)
[2021-11-29] MEDS: InsuLIN REG 1unit/0.01ml Soln (100units/ml) SC SCH ×5 (00:05→23:43)
[2021-11-29 05:00] VITALS: BP 144/72
[2021-11-29] MEDS: SUCRALFATE 1 GM/10 ML ORAL SUSP PO SCH ×2 (06:51→17:27)
[2021-11-29 08:37] LABS: Basophils # (auto) 0.1 10 ^3/uL (0-0.2); Eosinophils # (auto) 0.4 10 ^3/uL (0-0.8); Monocytes # (auto) 0.9 10 ^3/uL (0-1.3); Neutrophils # (auto) 6.5 10 ^3/uL (1.6-8.6)
[2021-11-29 08:38] LABS: Basophils % (auto) 0.7 % (0.0-2.0); Eosinophils % (auto) 4.1 % (0.0-7.0); Hematocrit 25.1 % (36.0-46.0); Hemoglobin 7.9 g/dL (12.2-16.2); Lymphocytes % (auto) 11.3 % (10.0-50.0); Mean Corpuscular Hemoglobin 22.9 pg (28.0-32.0); Mean Corpuscular Hgb Conc. 31.4 g/dL (32.0-36.0); Monocytes % (auto) 10.5 % (0.0-12.0); Neutrophils % (auto) 73.4 % (37.0-80.0); Nucleated Red Blood Cells % 0.1 %; Red Blood Cells 3.43 10^6/uL (4.0-5.20); Red Cell Distribution Width 21.7 % (11.8-14.3); White Blood Cell 8.9 10^3/uL (4.4-10.8)
[2021-11-29 08:47] LABS: Albumin 2.6 g/dL (3.4-5.0); Calcium 8.1 mg/dL (8.5-10.1); Potassium 4.1 mmol/L (3.5-5.1)
[2021-11-29 08:49] LABS: INR 1.38 (0.9-1.15); Partial Thromboplastin Time 47.4 sec (23.6-33.0)
[2021-11-29 08:51] LABS: BUN/Creatinine Ratio 15.2; Bilirubin, Total 0.7 mg/dL (0.2-1.0); Total Protein 5.7 g/dL (6.4-8.2)
[2021-11-29] MEDS ORDERED: IOHEXOL 350 MG/ML 100ML IJ ONE (08:54)
[2021-11-29] MEDS ORDERED: HEPARIN IN NS 1000Units/500mL 1,500 ML ONE (08:54)
[2021-11-29] MEDS ORDERED: LIDOCAINE 2%HCL (LOCAL ANESTH.) INJ 20ML MDV ONE (08:54)
[2021-11-29 09:00] VITALS: BP 134/58
[2021-11-29] MEDS: FUROSEMIDE 40 MG/4 ML VIAL IV SCH (09:01)
[2021-11-29] MEDS: PANTOPRAZOLE 40 MG/10 ML VIAL INJ IV SCH ×2 (09:01→22:08)
[2021-11-29] MEDS: DOCUSATE SOD 100 MG CAP PO SCH ×2 (09:02→22:08)
[2021-11-29] MEDS: ASPirin 81 mg TAB PO SCH (09:02)
[2021-11-29] MEDS: METOPROLOL TARTRATE 25 MG TAB PO SCH ×2 (09:02→21:51)
[2021-11-29] MEDS: LISINOPRIL 20 MG TAB PO SCH (09:03)
[2021-11-29] MEDS ORDERED: ANGIOMAX 250 MG VIAL IV ONE (09:30)
[2021-11-29] MEDS ORDERED: fentaNYL CITRATE 100 MCG/2 ML VL ONE (09:30)
[2021-11-29] MEDS ORDERED: MIDAZOLAM HCL 2MG/2ML 2ml VIAL (1mg/ml) ONE (09:31)
[2021-11-29] MEDS ORDERED: SODIUM CHL 0.9% 0 ML ONE (09:31)
[2021-11-29] MEDS: SODIUM FERR GLUC 62.5MG/5ML 125 MG in SODIUM CHL 0.9% 100 ML IV SCH (12:18)
[2021-11-29 13:10] VITALS: BP 142/58
[2021-11-29 17:00] VITALS: BP 127/44
[2021-11-29] MEDS: RIVAROXABAN 20 MG TAB PO SCH (17:27)
[2021-11-29 22:00] VITALS: BP 123/40
[2021-11-29] MEDS: ATORVASTATIN 20 MG TAB PO SCH (22:08)
[2021-11-30] VITALS (7 sets, daily range): BP systolic 123–147; BP diastolic 39–53
[2021-11-30] MEDS: SUCRALFATE 1 GM/10 ML ORAL SUSP PO SCH ×2 (05:36→17:36)
[2021-11-30] MEDS: ACCU-CHEK COMFORT CURVE STRIP VI SCH ×4 (05:36→23:57)
[2021-11-30] MEDS: InsuLIN REG 1unit/0.01ml Soln (100units/ml) SC SCH ×4 (05:36→23:49)
[2021-11-30] MEDS ORDERED: IOHEXOL 350 MG/ML 100ML IJ ONE ×2 (07:18→08:05)
[2021-11-30] MEDS ORDERED: LIDOCAINE 2%HCL (LOCAL ANESTH.) INJ 20ML MDV ONE ×2 (07:18→08:04)
[2021-11-30] MEDS ORDERED: SODIUM CHL 0.9% 50 ML ONE (07:54)
[2021-11-30] MEDS ORDERED: fentaNYL CITRATE 100 MCG/2 ML VL ONE (07:54)
[2021-11-30] MEDS ORDERED: ANGIOMAX 250 MG VIAL IV ONE (07:54)
[2021-11-30] MEDS ORDERED: MIDAZOLAM HCL 2MG/2ML 2ml VIAL (1mg/ml) ONE ×2 (07:54→09:51)
[2021-11-30] MEDS ORDERED: ATROPINE SULF 1 MG/10ml SYR ONE (08:21)
[2021-11-30] MEDS ORDERED: EPINEPHrine HCL 1 MG/10 ML SYRG ONE (08:21)
[2021-11-30] MEDS ORDERED: CLOPIDOGREL 300 MG TAB ONE (08:33)
[2021-11-30] MEDS: FUROSEMIDE 40 MG/4 ML VIAL IV SCH (10:10)
[2021-11-30] MEDS: ASPirin 81 mg TAB PO SCH (10:10)
[2021-11-30] MEDS: RIVAROXABAN 10 MG TAB PO SCH (10:10)
[2021-11-30] MEDS: PANTOPRAZOLE 40 MG/10 ML VIAL INJ IV SCH ×2 (10:10→21:49)
[2021-11-30] MEDS: LISINOPRIL 20 MG TAB PO SCH (10:11)
[2021-11-30] MEDS: METOPROLOL TARTRATE 25 MG TAB PO SCH ×2 (10:11→21:51)
[2021-11-30] MEDS: DOCUSATE SOD 100 MG CAP PO SCH ×2 (10:11→21:49)
[2021-11-30] MEDS: SODIUM FERR GLUC 62.5MG/5ML 125 MG in SODIUM CHL 0.9% 100 ML IV SCH (13:18)
[2021-11-30] MEDS: ATORVASTATIN 20 MG TAB PO SCH (21:49)
[2021-12-01 05:00] VITALS: BP 126/58
[2021-12-01] MEDS: InsuLIN REG 1unit/0.01ml Soln (100units/ml) SC SCH ×2 (06:24→12:53)
[2021-12-01] MEDS: ACCU-CHEK COMFORT CURVE STRIP VI SCH ×2 (06:24→12:39)
[2021-12-01] MEDS: SUCRALFATE 1 GM/10 ML ORAL SUSP PO SCH (06:25)
[2021-12-01] MEDS ORDERED: CLOP75TA28 PO (08:44)
[2021-12-01] MEDS ORDERED: ASPI-498 OR (08:44)
[2021-12-01] MEDS: FUROSEMIDE 40 MG/4 ML VIAL IV SCH (08:50)
[2021-12-01] MEDS: PANTOPRAZOLE 40 MG/10 ML VIAL INJ IV SCH (08:51)
[2021-12-01] MEDS: ASPirin 81 mg TAB PO SCH (08:52)
[2021-12-01] MEDS: METOPROLOL TARTRATE 25 MG TAB PO SCH (08:52)
[2021-12-01] MEDS: DOCUSATE SOD 100 MG CAP PO SCH (08:52)
[2021-12-01] MEDS: RIVAROXABAN 10 MG TAB PO SCH (08:53)
[2021-12-01] MEDS: LISINOPRIL 20 MG TAB PO SCH (08:53)
[2021-12-01 09:00] VITALS: BP 121/45
[2021-12-01] MEDS ORDERED: CLOPIDOGREL BISULFATE 75 MG TAB PO SCH (10:00)
[2021-12-01 12:48] VITALS: BP 123/41
[2021-12-01] MEDS: SODIUM FERR GLUC 62.5MG/5ML 125 MG in SODIUM CHL 0.9% 100 ML IV SCH (16:13)
== END 2021-12-01 16:00 | disposition home or self-care (01) | DRG 853 ==
LOC: ER 08:41 → TELE 15:19 → TELE-CENTR 22:31
PROVIDERS: ADMIT Hospitalist; ATTEND Family Medicine
PROC: 027034Z Dilation of Coronary Artery, One Artery with Drug-eluting Intraluminal Device, Percutaneous Approach (ICD-10-PCS; principal; 2021-11-30)
PROC: 4A023N7 Measurement of Cardiac Sampling and Pressure, Left Heart, Percutaneous Approach (ICD-10-PCS; 2021-11-30)
PROC: B2111ZZ Fluoroscopy of Multiple Coronary Arteries using Low Osmolar Contrast (ICD-10-PCS; 2021-11-30)
PROC: B2151ZZ Fluoroscopy of Left Heart using Low Osmolar Contrast (ICD-10-PCS; 2021-11-30)
PROC: B2131ZZ Fluoroscopy of Multiple Coronary Artery Bypass Grafts using Low Osmolar Contrast (ICD-10-PCS; 2021-11-30)
PROC: B2181ZZ Fluoroscopy of Left Internal Mammary Bypass Graft using Low Osmolar Contrast (ICD-10-PCS; 2021-11-30)
PROC: B41C1ZZ Fluoroscopy of Pelvic Arteries using Low Osmolar Contrast (ICD-10-PCS; 2021-11-30)
PROC: 4A033BC Measurement of Arterial Pressure, Coronary, Percutaneous Approach (ICD-10-PCS; 2021-11-30)
DX: A41.9 Sepsis, unspecified organism (principal); I21.4 Non-ST elevation (NSTEMI) myocardial infarction; G93.41 Metabolic encephalopathy; N17.0 Acute kidney failure with tubular necrosis; I13.0 Hypertensive heart and chronic kidney disease with heart failure and stage 1 through stage 4 chronic kidney disease, or unspecified chronic kidney disease; Z68.42 Body mass index [BMI] 45.0-49.9, adult; I82.412 Acute embolism and thrombosis of left femoral vein; D68.4 Acquired coagulation factor deficiency; E11.649 Type 2 diabetes mellitus with hypoglycemia without coma; E87.5 Hyperkalemia; E66.01 Morbid (severe) obesity due to excess calories; J44.9 Chronic obstructive pulmonary disease, unspecified; N18.32 Chronic kidney disease, stage 3b; D63.8 Anemia in other chronic diseases classified elsewhere; E11.40 Type 2 diabetes mellitus with diabetic neuropathy, unspecified; Z79.84 Long term (current) use of oral hypoglycemic drugs; E78.5 Hyperlipidemia, unspecified; E11.22 Type 2 diabetes mellitus with diabetic chronic kidney disease; I25.10 Atherosclerotic heart disease of native coronary artery without angina pectoris; F41.9 Anxiety disorder, unspecified; F32.A Depression, unspecified; Z20.822 Contact with and (suspected) exposure to COVID-19; D50.9 Iron deficiency anemia, unspecified; I50.9 Heart failure, unspecified; Z79.4 Long term (current) use of insulin; Z79.899 Other long term (current) drug therapy; Z85.038 Personal history of other malignant neoplasm of large intestine; Z85.41 Personal history of malignant neoplasm of cervix uteri; Z86.718 Personal history of other venous thrombosis and embolism; Z90.710 Acquired absence of both cervix and uterus; Z93.3 Colostomy status; Z95.1 Presence of aortocoronary bypass graft; Z95.2 Presence of prosthetic heart valve; Z95.5 Presence of coronary angioplasty implant and graft; Z85.42 Personal history of malignant neoplasm of other parts of uterus; Z79.02 Long term (current) use of antithrombotics/antiplatelets
CPT/HCPCS: 36415; 36600; 51702; 71045; 75736; 80053; 80061; 80202; 80307; 81001; 82378; 82565; 82607; 82728; 82746; 82805; 82962; 83036; 83540; 83550; 83615; 83690; 83735; 83880; 84100; 84443; 84484; 85025; 85379; 85610; 85730; 86850; 86900; 86901; 87040; 87077; 87086; 87426; 92928; 93005; 93306; 93459; 93970; 96360; 96361; 99152; 99153; 99291; C1874; C1887; C9113; G0378; J1815; J2250; J2405

== ENCOUNTER 2024-04-27 12:17 | Inpatient (IN) | payer MEDICARE, MEDICAID ==
[~2024-04-27] VITALS: Ht 149.9 cm; Wt 95.5 kg
[~2024-04-27 12:17] MED LIST changes: +ASPI-498 OR; +ASPI-543 PO; +CLOP75TA28 PO; +FERR-7 PO; +MECL-126 PO; +PANT40T PO; -SIMV-8 PO; +SIMV20TA20 PO; +SUCR1TAB31 OR
[2024-04-27 13:00] VITALS: PULSE 68; RESP 13; O2SAT 97
[2024-04-27 13:52] LABS: Basophils # (auto) 0 10 ^3/uL (0-0.2); Basophils % (auto) 0.3 % (0.0-2.0); Eosinophils # (auto) 0.2 10 ^3/uL (0-0.8); Eosinophils % (auto) 2.3 % (0.0-7.0); Hemoglobin 12.2 g/dL (12.2-16.2); Lymphocytes % (auto) 12.2 % (10.0-50.0); Mean Corpuscular Hemoglobin 28.7 pg (28.0-32.0); Mean Corpuscular Hgb Conc. 32.9 g/dL (32.0-36.0); Mean Corpuscular Volume 87.3 fL (80.0-100.0); Monocytes # (auto) 0.6 10 ^3/uL (0-1.3); Neutrophils # (auto) 6.2 10 ^3/uL (1.6-8.6); Neutrophils % (auto) 78.2 % (37.0-80.0); Nucleated Red Blood Cells % 0.1 %; Red Blood Cells 4.24 10^6/uL (4.0-5.20); Red Cell Distribution Width 16.3 % (11.8-14.3); White Blood Cell 7.9 10^3/uL (4.4-10.8)
[2024-04-27 14:11] LABS: Alanine Aminotransferase 18 U/L (7-40); Albumin 3.7 g/dL (3.2-4.8); Alkaline Phosphatase 65 U/L (46-116); Anion Gap 7 (5-15); Aspartate Aminotransferase 19 U/L (13-40); BUN/Creatinine Ratio 17.4 (10.0-20.0); Blood Urea Nitrogen 30 mg/dL (9-23); Calcium 9.6 mg/dL (8.7-10.4); Carbon Dioxide 30 mmol/L (20-30); Chloride 105 mmol/L (98-107); Glucose 206 mg/dL (74-106); Potassium 4.7 mmol/L (3.5-5.1); Sodium 142 mmol/L (136-145)
[2024-04-27 14:12] LABS: Bilirubin, Total 0.7 mg/dL (0.2-1.0); Total Protein 5.5 g/dL (5.7-8.2)
[2024-04-27 14:23] LABS: INR 1.27 (0.9-1.15); Partial Thromboplastin Time 34.1 SEC (24.5-34.5); Prothrombin Time 13.2 sec (9.3-11.8)
[2024-04-27] MEDS: LACTULOSE 20Gm/30ML SOLN PO ONE (15:45)
[2024-04-27] MEDS ORDERED: DEXTROSE (50%) 50ML SYRG IV PRN (16:00)
[2024-04-27] MEDS ORDERED: DOCUSATE SOD 100 MG CAP PO PRN (16:00)
[2024-04-27] MEDS ORDERED: ONDANSETRON HCL 4 MG/2 ML VIAL IV PRN (16:00)
[2024-04-27] MEDS ORDERED: MORPHINE SULFATE INJ 2 MG/ml SYRG IV PRN (16:45)
[2024-04-27] MEDS ORDERED: NITROGLYCERIN 0.4 MG SL TAB SL PRN (16:45)
[2024-04-27] MEDS: ACCU-CHEK COMFORT CURVE STRIP VI SCH (17:01)
[2024-04-27] MEDS: InsuLIN REG 1unit/0.01ml Soln (100units/ml) SC SCH (17:09)
[2024-04-27] MEDS: SODIUM CHLORIDE 0.9% 1,000 ML IV SCH (17:40)
[2024-04-27 18:41] LABS: Urine Bacteria FEW /hpf (None Seen); Urine Blood Negative /uL (Negative); Urine Budding Yeast FEW /hpf (None Seen); Urine Clarity Turbid (Clear); Urine Color Yellow (Yellow); Urine Protein, UAD TRACE (Negative); Urine Specific Gravity 1.017 (1.001-1.035); Urine Urobilinogen Normal (Negative); Urine WBC 104 /hpf (0 - 5)
[2024-04-27 18:52] LABS: Amphetamine Screen, Urine Neg (NEGATIVE); Barbiturate Scree,Urine Neg (NEGATIVE); Benzodiazephine Screen, Urine Neg (NEGATIVE); Cocaine Screen, Urine Neg (NEGATIVE); Opiate Scree,Urine Neg (NEGATIVE)
[2024-04-27 18:53] LABS: Cannabinoid Screen, Urine Neg (NEGATIVE); Phencyclidine Screen, Urine Neg (NEGATIVE)
[2024-04-27 20:00] VITALS: PULSE 68; RESP 12; O2SAT 100
[2024-04-27] MEDS: SODIUM CHLOR 0.9% PF (SALINE LOCK) 10ML VIAL/SYR IV SCH (22:14)
[2024-04-27] MEDS: LACTULOSE 20Gm/30ML SOLN PO SCH (22:14)
[2024-04-27] MEDS: ATORVASTATIN 20 MG TAB PO SCH (22:14)
[2024-04-27] MEDS: FAMOTIDINE (10MG/ML) 2ML VL IV SCH (22:14)
[2024-04-28] VITALS (10 sets, daily range): BP systolic 123–151; BP diastolic 54–77; PULSE 59–71; RESP 17–20; TEMP 97.1–98.4; O2SAT 95–100
[2024-04-28] MEDS ORDERED: ZOFR4T PO (02:57)
[2024-04-28] MEDS ORDERED: INSU1INJ14 SC (02:58)
[2024-04-28] MEDS ORDERED: SEMA4INJ SC (02:58)
[2024-04-28] MEDS ORDERED: ALBU108A5 INH (03:03)
[2024-04-28] MEDS ORDERED: PREG75CA90 PO (03:03)
[2024-04-28] MEDS ORDERED: ALEN70TA74 PO (03:03)
[2024-04-28] MEDS ORDERED: DAPA1TAB4 PO (03:03)
[2024-04-28] MEDS ORDERED: IOHEXOL 350 MG/ML 100ML IJ ONE (04:09)
[2024-04-28 10:06] LABS: Basophils # (auto) 0 10 ^3/uL (0-0.2); Basophils % (auto) 0.5 % (0.0-2.0); Eosinophils # (auto) 0.4 10 ^3/uL (0-0.8); Eosinophils % (auto) 6.1 % (0.0-7.0); Hematocrit 37.1 % (36.0-46.0); Hemoglobin 12.3 g/dL (12.2-16.2); Lymphocytes # (auto) 1.1 10 ^3/uL (0.4-5.4); Lymphocytes % (auto) 18.3 % (10.0-50.0); Mean Corpuscular Hemoglobin 29.2 pg (28.0-32.0); Mean Corpuscular Volume 88.5 fL (80.0-100.0); Monocytes # (auto) 0.5 10 ^3/uL (0-1.3); Monocytes % (auto) 8.3 % (0.0-12.0); Neutrophils # (auto) 4.1 10 ^3/uL (1.6-8.6); Neutrophils % (auto) 66.8 % (37.0-80.0); Nucleated Red Blood Cells % 0.1 %; Red Cell Distribution Width 16.3 % (11.8-14.3); White Blood Cell 6.1 10^3/uL (4.4-10.8)
[2024-04-28] MEDS: ASPirin 81 mg TAB PO SCH (10:16)
[2024-04-28 10:20] LABS: Alanine Aminotransferase 14 U/L (7-40); Albumin 3.6 g/dL (3.2-4.8); Alkaline Phosphatase 61 U/L (46-116); Anion Gap 3 (5-15); Aspartate Aminotransferase 14 U/L (13-40); BUN/Creatinine Ratio 12.5 (10.0-20.0); Blood Urea Nitrogen 15 mg/dL (9-23); Calcium 9.2 mg/dL (8.7-10.4); Carbon Dioxide 30 mmol/L (20-30); Chloride 109 mmol/L (98-107); Glucose 170 mg/dL (74-106); Potassium 4.7 mmol/L (3.5-5.1); Sodium 142 mmol/L (136-145)
[2024-04-28 10:21] LABS: Bilirubin, Total 0.8 mg/dL (0.2-1.0); Total Protein 5.7 g/dL (5.7-8.2)
[2024-04-28] MEDS: CEFEPIME 1GM/ 50ML 50 ML IV SCH (12:30)
[2024-04-28] MEDS: RIVAROXABAN 20 MG TAB PO SCH (18:17)
[2024-04-28] MEDS: ACETAMINOPHEN 325 MG TAB PO PRN (22:20)
[2024-04-29] VITALS (8 sets, daily range): BP systolic 140–159; BP diastolic 63–88; PULSE 67–76; RESP 18–20; TEMP 97.8–98.6; O2SAT 93–98
[2024-04-29 07:11] LABS: Basophils # (auto) 0 10 ^3/uL (0-0.2); Basophils % (auto) 0.4 % (0.0-2.0); Eosinophils # (auto) 0.3 10 ^3/uL (0-0.8); Eosinophils % (auto) 6.4 % (0.0-7.0); Hematocrit 35.4 % (36.0-46.0); Lymphocytes # (auto) 1.3 10 ^3/uL (0.4-5.4); Mean Corpuscular Hemoglobin 29.6 pg (28.0-32.0); Monocytes # (auto) 0.5 10 ^3/uL (0-1.3); Monocytes % (auto) 8.9 % (0.0-12.0); Neutrophils # (auto) 3.1 10 ^3/uL (1.6-8.6); Neutrophils % (auto) 59.3 % (37.0-80.0); Nucleated Red Blood Cells % 0.2 %; Red Blood Cells 4.07 10^6/uL (4.0-5.20); Red Cell Distribution Width 16.1 % (11.8-14.3); White Blood Cell 5.2 10^3/uL (4.4-10.8)
[2024-04-29 07:25] LABS: Chloride 109 mmol/L (98-107); Potassium 4.5 mmol/L (3.5-5.1); Sodium 140 mmol/L (136-145)
[2024-04-29 07:26] LABS: Anion Gap 5 (5-15); Carbon Dioxide 26 mmol/L (20-30)
[2024-04-29 07:27] LABS: Calcium 9.4 mg/dL (8.7-10.4)
[2024-04-29 07:31] LABS: Blood Urea Nitrogen 13 mg/dL (9-23); Glucose 164 mg/dL (74-106)
[2024-04-29 07:34] LABS: Phosphorus 2.9 mg/dL (2.4-5.1)
[2024-04-29] MEDS: CLOPIDOGREL BISULFATE 75 MG TAB PO SCH (08:44)
[2024-04-29] MEDS: FUROSEMIDE 20 MG TAB PO SCH (08:45)
[2024-04-29] MEDS: METOPROLOL SUCCINATE XL 50 MG TAB PO ONE (08:46)
[2024-04-29] MEDS: SACUBITRIL-VALSARTAN 24mg/26mg TAB PO SCH (08:46)
[2024-04-29] MEDS ORDERED: INSU100I33 SC (09:07)
[2024-04-29] MEDS ORDERED: SEMA2INJ3 SC (09:08)
[2024-04-29] MEDS ORDERED: CHOL200043 PO (09:38)
[2024-04-29] MEDS: PREGABALIN CAPSULE 75 MG CAP PO ONE (15:45)
[2024-04-29] MEDS: HYDROcodone-ACET 5/325MG TAB PO PRN (18:50)
[2024-04-29] MEDS: PREGABALIN CAPSULE 75 MG CAP PO SCH (21:12)
[2024-04-30] VITALS (8 sets, daily range): BP systolic 141–159; BP diastolic 69–84; PULSE 66–99; RESP 17–20; TEMP 97.9–98.4; O2SAT 92–98
[2024-04-30 02:00] LABS: Protein, Urine 20.4 mg/dL (0.0-11.9)
[2024-04-30 02:03] LABS: Creatinine, Urine 31.75 mg/dL (30.0-125.0)
[2024-04-30] MEDS: INSULIN LANTUS (GLARGINE) 1 /0.01ml (100units/ml) SC SCH (06:07)
[2024-04-30 06:36] LABS: Basophils # (auto) 0 10 ^3/uL (0-0.2); Basophils % (auto) 0.7 % (0.0-2.0); Eosinophils # (auto) 0.3 10 ^3/uL (0-0.8); Eosinophils % (auto) 5.2 % (0.0-7.0); Hematocrit 39.5 % (36.0-46.0); Hemoglobin 13.5 g/dL (12.2-16.2); Lymphocytes # (auto) 1.3 10 ^3/uL (0.4-5.4); Lymphocytes % (auto) 22.4 % (10.0-50.0); Mean Corpuscular Hemoglobin 29.4 pg (28.0-32.0); Mean Corpuscular Volume 86.3 fL (80.0-100.0); Monocytes # (auto) 0.6 10 ^3/uL (0-1.3); Monocytes % (auto) 11.1 % (0.0-12.0); Neutrophils # (auto) 3.4 10 ^3/uL (1.6-8.6); Neutrophils % (auto) 60.6 % (37.0-80.0); Red Blood Cells 4.58 10^6/uL (4.0-5.20); White Blood Cell 5.6 10^3/uL (4.4-10.8)
[2024-04-30 06:47] LABS: Chloride 107 mmol/L (98-107); Sodium 142 mmol/L (136-145)
[2024-04-30 06:48] LABS: Anion Gap 5 (5-15); Calcium 9.7 mg/dL (8.7-10.4); Carbon Dioxide 30 mmol/L (20-30)
[2024-04-30 06:53] LABS: BUN/Creatinine Ratio 13.4 (10.0-20.0); Blood Urea Nitrogen 15 mg/dL (9-23); Glucose 128 mg/dL (74-106)
[2024-04-30] MEDS: METOPROLOL SUCCINATE XL 50 MG TAB PO SCH (09:43)
[2024-04-30] MEDS: LACTULOSE 20Gm/30ML SOLN PO SCH (14:00)
[2024-05-01 01:00] VITALS: BP 138/80; PULSE 70; RESP 20; TEMP 98.1; O2SAT 96
[2024-05-01 05:00] VITALS: BP 148/6; PULSE 69; RESP 20; TEMP 98; O2SAT 94
[2024-05-01 07:29] LABS: Chloride 104 mmol/L (98-107); Potassium 3.8 mmol/L (3.5-5.1); Sodium 142 mmol/L (136-145)
[2024-05-01 07:30] LABS: Anion Gap 11 (5-15); Carbon Dioxide 27 mmol/L (20-30)
[2024-05-01 07:31] LABS: Calcium 9.8 mg/dL (8.7-10.4)
[2024-05-01 07:35] LABS: BUN/Creatinine Ratio 11.9 (10.0-20.0); Blood Urea Nitrogen 13 mg/dL (9-23); Glucose 121 mg/dL (74-106)
[2024-05-01 07:38] LABS: Basophils # (auto) 0 10 ^3/uL (0-0.2); Basophils % (auto) 0.5 % (0.0-2.0); Eosinophils # (auto) 0.3 10 ^3/uL (0-0.8); Eosinophils % (auto) 3.7 % (0.0-7.0); Hematocrit 41.9 % (36.0-46.0); Hemoglobin 14.3 g/dL (12.2-16.2); Lymphocytes # (auto) 1.3 10 ^3/uL (0.4-5.4); Lymphocytes % (auto) 18.8 % (10.0-50.0); Mean Corpuscular Hemoglobin 29.5 pg (28.0-32.0); Mean Corpuscular Hgb Conc. 34.2 g/dL (32.0-36.0); Mean Corpuscular Volume 86.3 fL (80.0-100.0); Monocytes # (auto) 0.7 10 ^3/uL (0-1.3); Monocytes % (auto) 10.1 % (0.0-12.0); Neutrophils # (auto) 4.7 10 ^3/uL (1.6-8.6); Neutrophils % (auto) 66.9 % (37.0-80.0); Red Blood Cells 4.85 10^6/uL (4.0-5.20); Red Cell Distribution Width 15.6 % (11.8-14.3)
[2024-05-01 08:00] VITALS: PULSE 79
[2024-05-01 08:05] VITALS: BP 139/69; PULSE 76; RESP 18; TEMP 98.2; O2SAT 94
[2024-05-01 12:48] VITALS: BP 131/61; PULSE 79; RESP 20; TEMP 98.5; O2SAT 95
[2024-05-01 17:00] VITALS: BP 137/72; PULSE 73; RESP 18; TEMP 97.9; O2SAT 95
[2024-05-01] MEDS ORDERED: METO-6 PO (18:29)
[2024-05-01] MEDS ORDERED: SACU1TAB PO (18:29)
[2024-05-01] MEDS ORDERED: CEFD300C2 PO (22:32)
== END 2024-05-01 21:25 | disposition home or self-care (01) | DRG 70 ==
LOC: ER 12:17 → TELE 16:37 → TELE-WESTW 23:30
PROVIDERS: ADMIT Internal Medicine; ATTEND Emergency Medicine
DX: G93.41 Metabolic encephalopathy (principal); N17.0 Acute kidney failure with tubular necrosis; N39.0 Urinary tract infection, site not specified; E72.20 Disorder of urea cycle metabolism, unspecified; Z68.42 Body mass index [BMI] 45.0-49.9, adult; I13.0 Hypertensive heart and chronic kidney disease with heart failure and stage 1 through stage 4 chronic kidney disease, or unspecified chronic kidney disease; E66.01 Morbid (severe) obesity due to excess calories; F41.9 Anxiety disorder, unspecified; F32.A Depression, unspecified; E78.5 Hyperlipidemia, unspecified; I25.10 Atherosclerotic heart disease of native coronary artery without angina pectoris; E11.22 Type 2 diabetes mellitus with diabetic chronic kidney disease; N18.30 Chronic kidney disease, stage 3 unspecified; E11.40 Type 2 diabetes mellitus with diabetic neuropathy, unspecified; J44.9 Chronic obstructive pulmonary disease, unspecified; I50.9 Heart failure, unspecified; Z79.82 Long term (current) use of aspirin; Z79.899 Other long term (current) drug therapy; Z85.41 Personal history of malignant neoplasm of cervix uteri
CPT/HCPCS: 36415; 70450; 71045; 74018; 80048; 80053; 80307; 80320; 81001; 82140; 82570; 82962; 83605; 83880; 84100; 84156; 84300; 84484; 85025; 85610; 85730; 87040; 87086; 93306; 93970; 97110; 97116; 97163; 97530; G0378; J1815; J3490

== ENCOUNTER 2025-05-02 09:12 | Inpatient (IN) | payer MEDICARE, MEDICAID ==
[~2025-05-02] VITALS: Ht 167.6 cm; Wt 111.0 kg
[~2025-05-02 09:12] MED LIST changes: +ALBU108A5 INH; +ALEN70TA74 PO; -ASPI-543 PO; -CARV6.2551 PO; +CEFD300C2 PO; -CELE100C82 PO; +CHOL200043 PO; +DAPA1TAB4 PO; -FLUT0.05 NAS; -FLUT1INH6 IN; -LISI2.5T47 PO; +METO-6 PO; -PREG75CA PO; +PREG75CA90 PO; +SACU1TAB PO; +SEMA2INJ3 SC; -SITA50TA28 PO; -SPIR25TA8 PO; +ZOFR4T PO
--- NOTE | 2025-05-02 10:00 | ED.PDOC ---
Altered Mental Status HPI Comments 74 y/o F, BIBA, with PMHx of UTI's, DM, HLD, HTN, CAD, CHF, and COPD presents to the ED for CC of ALOC. EMS reports, patient is coming from home where family called d/t patient displaying decreased alertness. Per EMS, LKW was 2300 last night (05/01/25). EMS endorses, family states patient was A&Ox1 which is not her regular baseline. Family comments, patient has displayed these symptoms with previous UTI's and has foul odored urine lately. Upon arrival to the ED, patient is A&Ox3 and is unable to recall the current year. No other associated symptoms, modifiers, recent injuries or sick contacts present at this time. Chief Complaint: ALOC Time Seen by MD: 09:50 Primary Care Provider: Kim Reviewed Notes: Nurses Notes, Internal Communications Manager Notes, Medications, Allergies Allergies: Coded Allergies: NO KNOWN ALLERGIES (Unverified , 01/19/20) Home Meds Active Scripts Cefdinir (Cefdinir) 300 Mg Cap, 1 CAP PO BID for 7 Days, #14 CAP Prov:EMIGDIO NICOLE RESIDENT 05/01/24 Metoprolol Succinate (Toprol Xl) 50 Mg Tab, 25 MG PO DAILY for 90 Days, #90 TAB Prov:EMIGDIO NICOLE RESIDENT 05/01/24 Sacubitril-Valsartan (Entresto 24-26 mg) 1 Tab Tab, 1 TAB PO BID for 90 Days, #180 TAB Prov:EMIGDIO NICOLE RESIDENT 05/01/24 Clopidogrel Bisulfate (Plavix) 75 Mg Tab, 1 TAB PO DAILY, #90 TAB 3 Refills Prov:JOHANA MARTINEZ MD 12/01/21 Aspirin (ASPIRIN 81) 81 Mg Tab, 81 MG OR DAILY, #90 TAB Prov:JOHANA MARTINEZ MD 12/01/21 Sucralfate (CARAFATE) 1 Gm Tab, 1 GM OR Q6HR for 14 Days, #56 TAB Prov:JOHANA MARTINEZ MD 11/24/21 Pantoprazole Sodium Sesquihydr (Pantoprazole Sodium) 40 Mg Tab, 40 MG PO DAILY, #30 TAB Prov:JOHANA MARTINEZ MD 11/24/21 Ferrous Sulfate (Iron) 325 Mg Tab, 325 MG PO BID, #180 TAB Prov:JOHANA MARTINEZ MD 11/24/21 Reported Medications Cholecalciferol (D3 SUPER STRENGTH) 2,000 Unit Cap, 1 CAP PO DAILY 04/29/24 Semaglutide (Ozempic) 2 Mg/3 Ml Inj, 1 MG SC QWEEKLY, INJ 04/29/24 Insulin Degludec (Tresiba) 100 Unit/Ml Inj, 80 UNIT SC, INJ 04/29/24 Dapagliflozin Propanediol (Farxiga) 10 Mg Tab, 10 MG PO DAILY, TAB 04/28/24 Albuterol Sulfate (Albuterol Sulfate Hfa) 108 Mcg/Act Aer, 1 PUFF INH Q4HR PRN 04/28/24 Alendronate Sodium (Alendronate Sodium) 70 Mg Tab, 1 TAB PO QWEEKLY 04/28/24 Pregabalin (Pregabalin) 75 Mg Cap, 1 CAP PO BID 04/28/24 Ondansetron Odt 4MG Tab (ZOFRAN PO) 4 Mg Tb, 4 MG PO DAILY ODT TAB-DISSOLVE IN MOUTH, THEN SWALLOW 04/28/24 Meclizine HCl (Meclizine Hydrochloride) 25 Mg Tab, 1 TAB PO T12SCHH PRN for NAUSEA / VOMITING for 10 Days, #20 04/28/24 Tramadol Hcl (Tramadol Hcl) 50 Mg Tab, 50 MG PO BIDP PRN for PAIN SCALE 7 THRU 10, MG 11/21/21 Baclofen (Baclofen) 10 Mg Tab, 10 MG PO TID, TAB 12/03/19 Simvastatin (Simvastatin) 20 Mg Tab, 20 MG PO HS for 30 Days 12/03/19 Furosemide (Lasix) 40 Mg Tab, 40 MG PO DAILY, TAB 12/03/19 Rivaroxaban (Xarelto Tablet) 20 Mg Tb, 20 MG PO DAILY, TAB 12/03/19 Information Source: Patient, Emergency Med Personnel Mode of Arrival: EMS Severity: Moderate Timing: Hours Duration: Since onset Prehospital treatment: None Quality: Decreased Alertness Recent: Urinary Symptoms History of: Diabetes Associated Signs and Symptoms: None Past Medical History PAST MEDICAL HISTORY: Anxiety, CAD, CHF, COPD, Depression, DM, High Lipids, HTN, UTI'S Surgical History: [employer] COMPENSATION EXAMINER History: Cervical Cancer, Unobtainable Family History Family History: Unobtainable Social History Smoker: Non-Smoker Alcohol: Denies ETOH Use Drugs: Denies Drug Use Lives In: Home Constitutional: denies: chills, diaphoresis, fatigue, fever, malaise, sweats, weakness, others EENTM: denies: blurred vision, double vision, ear bleeding, ear discharge, ear drainage, ear pain, ear ringing, eye pain, eye redness, hearing loss, mouth pain, mouth swelling, nasal discharge, nose bleeding, nose congestion, nose pain, photophobia, tearing, throat pain, throat swelling, voice changes, others Respiratory: denies: cough, hemoptysis, orthopnea, SOB at rest, shortness of breath, SOB with excertion, stridor, wheezing, others Cardiovascular: denies: chest pain, dizzy spells, diaphoresis, Dyspnea on exertion, edema, irregular heart beat, left arm pain, lightheadedness, palpitations, PND, syncope, others Gastrointestinal: denies: abdomen distended, abdominal pain, blood streaked bowels, constipated, diarrhea, dysphagia, difficulty swallowing, hematemesis, melena, nausea, poor appetite, poor fluid intake, rectal bleeding, rectal pain, vomiting, others Genitourinary: reports: dysuria; denies: abnormal vagina bleeding, burning, dyspareunia, flank pain, frequency, hematuria, incontinence, pain, , vagina discharge, urgency, others Neurological: reports: dizziness; denies: fainting, headache, left sided numbness, left sided weakness, numbness, paresthesia, pre-existing deficit, right sided numbness, right sided weakness, seizure, speech problems, tingling, tremors, weakness, others Musculoskeletal: reports: others (bilateral leg pain); denies: back pain, gout, joint pain, joint swelling, muscle pain, muscle stiffness, neck pain Integumetry: denies: bruises, change in color, change in hair/nails, dryness, laceration, lesions, lumps, rash, wounds, others Allergic/Immunocompromised: denies: Difficulty Healing, Frequent Infections, Hives, Itching, others Hematologic/Lymphatic: denies: anemia, blood clots, easy bleeding, easy bruising, swollen glands, others Endocrine: denies: excessive hunger, excessive sweating, excessive thirst, excessive urination, flushing, intolerance to cold, intolerance to heat, unexplained weight gain, unexplained weight loss, others Psychiatric: denies: anxiety, bipolar disorder, depression, hopeless, panic disorder, schizophrenia, sleepless, suicidal, others All Other Systems: Reviewed and Negative Physical Exam General Appearance: No Apparent Distress, Normal HEENT: Normal ENT Inspection, Pharynx Normal Neck: Full Range of Motion, Non-Tender, Normal, Normal Inspection Respiratory: Chest Non-Tender, Lungs Clear, No Accessory Muscle Use, No Respiratory Distress, Normal Breath Sounds Cardiovascular: No Edema, No Murmur, No Gallop, Normal Peripheral Pulses, Regular Rate/Rhythm Breast Exam: Deferred Gastrointestinal: No Organomegaly, Non Tender, No Pulsatile Mass, Normal Bowel Sounds, Soft Genitalia: Deferred Pelvic: Deferred Rectal: Deferred Extremities: No calf tenderness, Normal capillary refill, Normal inspection, Normal range of motion, Non-tender, No pedal edema Musculoskeletal : Apperance: Normal Neurologic: supervisor laboratory II-XII nml as Tested, No Motor Deficits, Normal Affect, Normal Mood, No Sensory Deficits, Other (A&OX3, unable to recall year) Cerebellar Function: Normal Reflexes: Normal Skin: Dry, Normal Color, Warm Lymphatic: No Adenopathy Was a procedure done? Was a procedure done?: No Differential Diagnosis (ALOC) Differential Diagnosis: Dehydration, Other (UTI) X-Ray, Labs, Meds, VS Vital Signs Date Time Temp Pulse Resp B/P (MAP) Pulse Ox O2 Delivery O2 Flow Rate FiO2 05/02/25 12:00 66 12 173/63 (99) 97 05/02/25 10:19 65 14 96 Nasal Cannula* 2 28 05/02/25 10:12 98.0 61 14 156/67 (96) 98 98.0 05/02/25 09:27 63 05/02/25 09:25 97.3 72 16 129/69 (89) 97 97.3 Lab Test 05/02/25 11:37 05/02/25 11:05 Range/Units White Blood Count 8.3 4.4-10.8 10^3/uL Red Blood Count 4.94 4.0-5.20 10^6/uL Hemoglobin 12.2 12.2-16.2 g/dL Hematocrit 38.7 36.0-46.0 % Mean Corpuscular Volume 78.3 L 80.0-100.0 fL Mean Corpuscular Hemoglobin 24.8 L 28.0-32.0 pg Mean Corpuscular Hemoglobin Concent 31.7 L 32.0-36.0 g/dL Red Cell Distribution Width 19.8 H 11.8-14.3 % Platelet Count 199 140-450 10^3/uL Mean Platelet Volume 7.9 6.9-10.8 fL Neutrophils (%) (Auto) 66.1 37.0-80.0 % Lymphocytes (%) (Auto) 22.5 10.0-50.0 % Monocytes (%) (Auto) 9.2 0.0-12.0 % Eosinophils (%) (Auto) 1.7 0.0-7.0 % Basophils (%) (Auto) 0.5 0.0-2.0 % Neutrophils # (Auto) 5.5 1.6-8.6 10 ^3/uL Lymphocytes # (Auto) 1.9 0.4-5.4 10 ^3/uL Monocytes # (Auto) 0.8 0-1.3 10 ^3/uL Eosinophils # (Auto) 0.1 0-0.8 10 ^3/uL Basophils # (Auto) 0 0-0.2 10 ^3/uL Nucleated Red Blood Cells 0.1 % Prothrombin Time 11.9 H 9.3-11.8 sec Prothrombin Time INR 1.14 0.9-1.15 Activated Partial Thromboplast Time 28.4 24.5-34.5 SEC Sodium Level 143 136-145 mmol/L Potassium Level 4.4 3.5-5.1 mmol/L Chloride Level 105 98-107 mmol/L Carbon Dioxide Level 28 20-31 mmol/L Anion Gap 10 5-15 Blood Urea Nitrogen 36 H 9-23 mg/dL Creatinine 1.64 H 0.550-1.02 mg/dL Glomerular Filtration Rate Calc 32 >90 mL/min BUN/Creatinine Ratio 22.0 H 10.0-20.0 Serum Glucose 207 H 74-106 mg/dL Lactic Acid Level 1.6 0.4-2.0 mmol/L Calcium Level 9.4 8.7-10.4 mg/dL Total Bilirubin 0.4 0.2-1.0 mg/dL Aspartate Amino Transferase (AST) 27 13-40 U/L Alanine Aminotransferase (ALT) 24 7-40 U/L Alkaline Phosphatase 73 46-116 U/L Total Protein 5.9 5.7-8.2 g/dL Albumin 4.1 3.2-4.8 g/dL Urine Color Light-yellow Yellow Urine Clarity Clear Clear Urine pH 6.5 5.0-9.0 Urine Specific [place] 1.011 1.001-1.035 Urine Protein Negative Negative Urine Ketones Negative Negative Urine Blood Negative Negative /uL Urine Nitrite Negative Negative Urine Bilirubin Negative Negative Urine Urobilinogen Normal Negative mg/dL Urine Leukocyte Esterase Negative Negative /uL Urine RBC <1 0 - 4 /hpf Urine Microscopic WBC 1 0-5 /HPF Urine Squamous Epithelial Cells Few <5 /hpf Urine Bacteria Few H None Seen /hpf Urine Glucose 4+ H Normal mg/dL Current Medications Medications (Trade) Dose Ordered Sig/Elvira Route Start Time Stop Time Status Last Admin Lactated Ringer's 1,800 ml @ 1,800 mls/hr ONCE ONCE IV 05/02/25 11:15 05/02/25 12:14 DC 05/02/25 11:14 Vancomycin HCl 200 ml @ 200 mls/hr ONCE ONCE IV 05/02/25 11:15 05/02/25 12:14 DC 05/02/25 11:49 [place] [id number] Ph: [phone] DIAGNOSTIC IMAGING Diagnostic Imaging Report : [id number] Signed PATIENT: VIVI ADAIR ACCT: [id number] UNIT: [id number] : 1950 LOC: ER ROOM / BED: / AGE / SEX: 74 / F ADM STATUS: REG ER SERVICE 1105 ORDERING PHYSICIAN: KRISTY ROBLES MD PROCEDURE(s): CXRP - CHEST PORTABLE REASON: ams ORDER NUMBER(s): [id number], ACCESSION NUMBER(s): [id number] CHEST RADIOGRAPH Indication: ams Technique: Single frontal view of the chest was obtained COMPARISON: XY CHEST PORTABLE on DOS: 04/27/24, CHEST PORTABLE on DOS: 11/25/21, CHEST PORTABLE on DOS: 11/20/21 FINDINGS: Lines and Tubes: Median sternotomy Lungs: Multifocal airspace disease Pleura: No effusion. No pneumothorax. Cardiomediastinal contours: Unremarkable Bones: Unremarkable IMPRESSION: Multifocal airspace disease and/or pulmonary vascular congestion ATED BY: JOSE MARIA MD DICTATED DATE/TIME: 05/02/25 1200 SIGNED BY: JOSE MARIA MD SIGNED DATE/TIME: 05/02/251199 CC: [place] [id number] Ph: [phone] DIAGNOSTIC IMAGING Diagnostic Imaging Report : [id number] Signed PATIENT: VIVI ADAIR ACCT: [id number] UNIT: [id number] : 1950 LOC: ER ROOM / BED: / AGE / SEX: 74 / F ADM STATUS: REG ER SERVICE 04 ORDERING PHYSICIAN: KRISTY ROBLES MD PROCEDURE(s): HWOCT - HEAD WITHOUT CONTRAST REASON: ams ORDER NUMBER(s): [id number], ACCESSION NUMBER(s): [id number] CT brain without contrast CLINICAL INDICATION: ams FINDINGS: The study was performed in a multidetector scanner. This study performed taking axial images from the skull base up to the vertex. Both brain and bone windows are photographed. Dose lowering techniques have been used including automated exposure control and adjustment of mA and/or KV according to patient size. No intraparenchymal hemorrhage or edema. No hydrocephalus or midline shift No extra-axial fluid collections Cortical sulcal markings are slightly prominent On bone windows there are no calvarial fractures. IMPRESSION: 1. No acute intracranial pathology. Mild cortical atrophy. Computed Tomographic Radiation Dosimetry Report: Total CTDI vol = 64 mGy Total DLP = 1273 mGy-cm All CT scans at this medical facility are performed using dose modulation techniques as appropriate to a performed exam including the followin g: Automated exposure control was utilized; adjustment of the MA and/or KvP according to patient size; and use of iterative reconstruction technique. ATED BY: NORI ANNE MD DICTATED DATE/TIME: 05/02/251200 SIGNED BY: NORI ANNE MD SIGNED DATE/TIME: 05/02/25 120 CC: Time of 1ST Reevaluation: 10:20 Reevaluation 1ST: Unchanged Patient Education/Counseling: Diagnosis, Treatment Family Education/Counseling: No Family Present SEPSIS Sepsis Screen Date sepsis recognized/suspect: May 02, 2025 Time Sepsis recognized/suspect: 932 Recent Procedure: No On Antibiotic Therapy: No Respiratory Rate >20: No Heart Rate >90: No Temp<36 C (96.8 F) or >38.3 C: No SBP <90 or MAP <65 mmHG: No New Acute Mental Status Change: No Is the patient on CPAP, BIPAP,: No Physician Orders Electrocardigram (05/02/25 09:32) Chest Portable (05/02/25 11:05) Accucheck (05/02/25 11:05) Blood Culture (05/02/25 11:05) Notify Md If Map <65 Or Bp<90 (05/02/25 11:05) If Map<65 Start Vasopressor (05/02/25 11:05) Sepsis Reassesment After Fluid (05/02/25 12:05) Head Without Contrast (05/02/25 11:05) Cefepime 1gm/ 50ml (Maxipime 1gm/50ml) (05/02/25 13:00) Vital Signs Date Time Temp Pulse Resp B/P (MAP) Pulse Ox O2 Delivery O2 Flow Rate FiO2 05/02/25 12:00 66 12 173/63 (99) 97 05/02/25 10:19 65 14 96 Nasal Cannula* 2 05/02/25 10:12 98.0 61 14 156/67 (96) 98 98.0 05/02/25 09:27 63 05/02/25 09:25 97.3 72 16 129/69 (89) 97 97.3 Laboratory Tests Test 05/02/25 11:37 Lactic Acid Level 1.6 mmol/L (0.4-2.0) White Blood Count 8.3 10^3/uL (4.4-10.8) Medications Medications Dose Ordered Sig/Elvira Route Start Time Stop Time Status Last Admin Dose Admin Lactated Ringer's 1,800 ml @ 1,800 mls/hr ONCE ONCE IV 05/02/25 11:15 05/02/25 12:14 DC 05/02/25 11:14 Vancomycin HCl 200 ml @ 200 mls/hr ONCE ONCE IV 05/02/25 11:15 05/02/25 12:14 DC 05/02/25 11:49 Departure 1 Departure Time of Disposition: 12:38 (Patient with a worsening altered mental status. Patient's workup so far is mostly benign. We will empirically cover patient with antibiotics fluids and admit patient for further workup) Impression: Primary Impression: Acute metabolic encephalopathy Additional Impression: Generalized weakness Disposition: 09 ADMITTED INPATIENT Admit to: Med Surg Condition: Serious Critical Care Note Critical Care Time?: Yes Critical care comment: Altered mental status Authorized and Performed by: Kristy Robles MD Total critical care time: Approximately 42 minutes Due to a high probability of clinically significant, life threatening deterioration, the patient required my highest level of preparedness to intervene emergently and I personally spent this critical care time directly and personally managing the patient. This critical care time included obtaining a history; examining the patient; pulse oximetry; ordering and review of studies; arranging urgent treatment with development of a management plan; evaluation of patient's response to treatment; frequent reassessment; and, discussions with other providers. This critical care time was performed to assess and manage the high probability of imminent, life-threatening deterioration that could result in multi-organ failure. It was exclusive of separately billable procedures and treating other patients and teaching time. Please see my other sections and the rest of the note for further information on patient assessment and treatment. Stability Stability form required: No Heart Score Heart Score: Heart Score Response (Comments) Value History N/A 0 EKG N/A 0 Age N/A 0 Risk Factors N/A 0 Troponin N/A 0 Total 0 I personally scribed for KRISTY ROBLES MD ([email or web address]) on 05/02/25 at 10:00. Electronically submitted by Charisse Smith ([email or web address]). I personally scribed for KRISTY ROBLES MD ([email or web address]) on 05/02/25 at 12:32. Electronically submitted by Charisse Smith ([email or web address]). I personally scribed for KRISTY ROBLES MD ([email or web address]) on 05/02/25 at 12:33. Electronically submitted by Charisse Smith ([email or web address]). KRISTY ROBLES MD May 02, 2025 10:00
[2025-05-02 10:19] VITALS: PULSE 65; RESP 14; O2SAT 96
[2025-05-02] MEDS: LACTATED RINGER'S 1,800 ML IV ONE (11:14)
[2025-05-02] MEDS: MORPHINE SULFATE 4 MG/ML SYR/VIAL IV ONE (11:17)
[2025-05-02] MEDS: ONDANSETRON HCL 4 MG/2 ML VIAL IV ONE (11:18)
[2025-05-02 11:32] LABS: Urine Protein, UAD Negative (Negative)
[2025-05-02] MEDS: VANCOMYCIN 1GM/200ML PM 200 ML IV ONE (11:49)
[2025-05-02 11:57] LABS: Hematocrit 38.7 % (36.0-46.0); Hemoglobin 12.2 g/dL (12.2-16.2); Mean Corpuscular Hemoglobin 24.8 pg (28.0-32.0); Mean Corpuscular Volume 78.3 fL (80.0-100.0); Nucleated Red Blood Cells % 0.1 %
--- NOTE | 2025-05-02 12:03 | DVH ---
CT brain without contrast CLINICAL INDICATION: ams FINDINGS: The study was performed in a multidetector scanner. This study performed taking axial image s from the skull base up to the vertex. Both brain and bone windows are photographed. Dose lowering techniques have been used including automated exposure control and adjustment of mA and /or KV according to patient size. No intraparenchymal hemorrhage or edema. No hydrocephalus or midline shift No extra-axial fluid collections Cortical sulcal markings are slightly prominent On bone windows there are no calvarial fractures. IMPRESSION: 1. No acute intracranial pathology. Mild cortical atrophy. Computed Tomographic Radiation Dosimetry Report: Total CTDI vol = 64 mGy Total DLP = 1273 mGy-cm All CT scans at this medical facility are performed using dose modulation techniques as appropriate to a performed exam including the following: Automated exposure control was utilized; adjustment of the MA and/or KvP according to patient size; and use of iterative reconstruction technique.
--- NOTE | 2025-05-02 12:03 | DVH ---
CHEST RADIOGRAPH Indication: ams Technique: Single frontal view of the chest was obtained COMPARISON: XY CHEST PORTABLE on DOS: 04/27/24, CHEST PORTABLE on DOS: 11/25/21, CHEST PORTABLE on DOS: 11/20/21 FINDINGS: Lines and Tubes: Median sternotomy Lungs: Multifocal airspace disease Pleura: No effusion. No pneumothorax. Cardiomediastinal contours: Unremarkable Bones: Unremarkable IMPRESSION: Multifocal airspace disease and/or pulmonary vascular congestion
[2025-05-02 12:10] LABS: Alanine Aminotransferase 24 U/L (7-40); Albumin 4.1 g/dL (3.2-4.8); Alkaline Phosphatase 73 U/L (46-116); BUN/Creatinine Ratio 22.0 (10.0-20.0); Calcium 9.4 mg/dL (8.7-10.4); Carbon Dioxide 28 mmol/L (20-31); Total Protein 5.9 g/dL (5.7-8.2)
[2025-05-02 12:11] LABS: Bilirubin, Total 0.4 mg/dL (0.2-1.0)
[2025-05-02 12:15] LABS: INR 1.14 (0.9-1.15); Partial Thromboplastin Time 28.4 SEC (24.5-34.5); Prothrombin Time 11.9 sec (9.3-11.8)
[2025-05-02 12:17] LABS: Blood Urea Nitrogen 36 mg/dL (9-23); Glucose 207 mg/dL (74-106)
[2025-05-02 12:20] LABS: Anion Gap 10 (5-15); Chloride 105 mmol/L (98-107); Potassium 4.4 mmol/L (3.5-5.1); Sodium 143 mmol/L (136-145)
[2025-05-02] MEDS ORDERED: ONDANSETRON HCL 4 MG/2 ML VIAL IV PRN (13:45)
[2025-05-02] MEDS ORDERED: DEXTROSE (50%) 50ML SYRG IV PRN (13:45)
[2025-05-02] MEDS ORDERED: DOCUSATE SOD 100 MG CAP PO PRN (13:45)
[2025-05-02] MEDS ORDERED: CEFEPIME 1GM/ 50ML 50 ML IV SCH (14:00)
[2025-05-02] MEDS: SODIUM CHLOR 0.9% PF (SALINE LOCK) 10ML VIAL/SYR IV SCH (14:25)
[2025-05-02] MEDS: hydrALAZINE HCL 20 MG/ML VL IV PRN (14:55)
[2025-05-02] MEDS ORDERED: CARVEDILOL 3.125 MG TAB PO SCH ×2 (15:00→22:00)
[2025-05-02] MEDS: CEFEPIME 1GM/ 50ML 50 ML IV SCH (15:21)
--- NOTE | 2025-05-02 16:43 | DVHHP2 ---
History of Present Illness Reason for Visit: Acute metabolic encephalopathy History of Present Illness The patient is a a 74-year-old female morbidly obese with past medical history of anxiety, Coronary artery disease, CHF, COPD, depression, diabetes mellitus, hyperlipidemia, UTIs, and hypertension who presented to [facility] ED for evaluation of altered level of consciousness. As reported by EMS, patient's family called due to patient's change in mental status. Patient was seen and evaluated in the ED, laboratory data shows WBC 8.3, platelets 199, sodium 143, potassium 4.4, BUN 36, creatinine 1.64, glucose 207, calcium 9.4, blood pressure 173/63, heart rate 68, temperature 98.0 F, O2 saturation 96% on oxygen. Chest x-ray revealing multifocal airspace disease and/or pulmonary vascular congestion. Patient was started on IV antibiotic regimen vancomycin, IV cefepime, please see medication orders section in the computer. On my assessment, patient denied chest pain, no headache, no dizziness, currently on oxygen, no diaphoresis, no diarrhea, no nausea, no vomiting, no fever, no chills. Patient was admitted for further evaluation and medical management. Past Medical History Anxiety, CAD, CHF, COPD, Depression, DM, High Lipids, HTN, UTI'S Past Surgical History PTCA, Cervical Cancer Family History Reviewed, noncontributory to the management of this case. Past Social History The patient lives at home, denies smoking, alcohol or illicit drugs abuse. Review of Systems Constitutional: Yes: Weakness; No: Fever, Chills, Sweats, Malaise, Other Eyes: No: Pain, Vision change, Conjunctivae inflammation, Eyelid inflammation, Other, Redness ENT: No: Ear pain, Ear discharge, Nose pain, Nose discharge, Nose congestion, Mouth pain, Mouth swelling, Throat pain, Throat swelling, Other Respiratory: No: Cough, Dry, Shortness of breath, SOB with excertion, Wheezing, Hemoptysis, Pleuritic Pain, Sputum, Wheezing, Other Cardiovascular: No: Chest Pain, Palpitations, Orthopnea, Paroxysmal Noc. Dyspnea, Edema, Lt Headedness, Other Gastrointestinal: No: Nausea, Vomiting, Abdominal Pain, Diarrhea, Constipation, Melena, Hematochezia, Other Genitourinary: Dysuria; No Frequency, No Incontinence, No Hematuria, No Rete ntion, No Other Musculoskeletal: other (bilateral leg pain); No: neck pain, shoulder pain, arm pain, back pain, hand pain, leg pain, foot pain Skin: No: Rash, Lesions, Jaundice, Bruising, Other Neurological: Other (Dizziness); No: Weakness, Numbness, Incoordination, Change in speech, Confusion, Seizures Allergies: Coded Allergies: NO KNOWN ALLERGIES (Unverified , 01/19/20) Medications Current Medications Medications Dose Ordered Sig/Elvira Route Start Time Stop Time Status Last Admin Dose Admin Cefepime HCl 50 ml @ 12.5 mls/hr Q8HR IV 05/02/25 14:00 UNV Cefepime HCl 50 ml @ 12.5 mls/hr Q12H IV 05/02/25 13:00 05/02/25 15:21 12.5 MLS/HR Aspirin 81 mg DAILY PO 05/03/25 10:00 Atorvastatin Calcium 10 mg HS PO 05/02/25 22:00 Diagnostic Test (Pha) 1 strip ACHS 05/02/25 17:00 Insulin Human Regular HS SC 05/02/25 22:00 Insulin Human Regular AC SC 05/02/25 17:00 Dextrose 50 ml UD PRN IV 05/02/25 13:45 Sodium Chloride 10 ml Q8HR IV 05/02/25 14:00 05/02/25 14:25 10 ML Acetaminophen/ Hydrocodone Bitart 1 tab Q4HP PRN PO 05/02/25 13:45 Ondansetron HCl 4 mg Q4HP PRN IV 05/02/25 13:45 Docusate Sodium 100 mg BIDPRN PRN PO 05/02/25 13:45 Acetaminophen 650 mg Q6HP PRN PO 05/02/25 13:45 Hydralazine HCl 10 mg Q6HP PRN IV 05/02/25 14:45 05/02/25 14:55 10 MG Carvedilol 3.125 mg Q12HR PO 05/02/25 22:00 Exam Vital Signs Vital Signs Date Time Temp Pulse Resp B/P (MAP) Pulse Ox O2 Delivery O2 Flow Rate FiO2 05/02/25 16:00 62 16 167/50 (89) 96 05/02/25 14:00 98.3 98.3 05/02/25 10:19 Nasal Cannula* 2 28 General Appearance: Alert, Cooperative, No acute distress, Other (Oriented x2) HEENT: Atraumatic, PERRLA, EOMI, Mucous membr. moist/pink Respiratory: Normal air movement, Other (Diminished breath sounds) Cardiovascular: Regular rate, Normal S1, Normal S2, No murmurs Abdominal: Normal bowel sounds, Soft, No tenderness, No hepatospenomegaly, No masses Extremities: No clubbing, No cyanosis, No edema, Normal pulses, Other (Bilateral leg pain) Skin: No rashes, No significant lesion Neuro: Normal speech, Normal tone, Sensation intact, Cranial nerves 3-12 NL, Reflexes 2+, Other (Generalized weakness) Psych/Mental Status: Mental status NL, Mood NL Labs/Xrays Labs Test 05/02/25 11:37 05/02/25 11:05 Range/Units White Blood Count 8.3 4.4-10.8 10^3/uL Red Blood Count 4.94 4.0-5.20 10^6/uL Hemoglobin 12.2 12.2-16.2 g/dL Hematocrit 38.7 36.0-46.0 % Mean Corpuscular Volume 78.3 L 80.0-100.0 fL Mean Corpuscular Hemoglobin 24.8 L 28.0-32.0 pg Mean Corpuscular Hemoglobin Concent 31.7 L 32.0-36.0 g/dL Red Cell Distribution Width 19.8 H 11.8-14.3 % Platelet Count 199 140-450 10^3/uL Mean Platelet Volume 7.9 6.9-10.8 fL Neutrophils (%) (Auto) 66.1 37.0-80.0 % Lymphocytes (%) (Auto) 22.5 10.0-50.0 % Monocytes (%) (Auto) 9.2 0.0-12.0 % Eosinophils (%) (Auto) 1.7 0.0-7.0 % Basophils (%) (Auto) 0.5 0.0-2.0 % Neutrophils # (Auto) 5.5 1.6-8.6 10 ^3/uL Lymphocytes # (Auto) 1.9 0.4-5.4 10 ^3/uL Monocytes # (Auto) 0.8 0-1.3 10 ^3/uL Eosinophils # (Auto) 0.1 0-0.8 10 ^3/uL Basophils # (Auto) 0 0-0.2 10 ^3/uL Nucleated Red Blood Cells 0.1 % Prothrombin Time 11.9 H 9.3-11.8 sec Prothrombin Time INR 1.14 0.9-1.15 Activated Partial Thromboplast Time 28.4 24.5-34.5 SEC Sodium Level 143 136-145 mmol/L Potassium Level 4.4 3.5-5.1 mmol/L Chloride Level 105 98-107 mmol/L Carbon Dioxide Level 28 20-31 mmol/L Anion Gap 10 5-15 Blood Urea Nitrogen 36 H 9-23 mg/dL Creatinine 1.64 H 0.550-1.02 mg/dL Glomerular Filtration Rate Calc 32 >90 mL/min BUN/Creatinine Ratio 22.0 H 10.0-20.0 Serum Glucose 207 H 74-106 mg/dL Lactic Acid Level 1.6 0.4-2.0 mmol/L Calcium Level 9.4 8.7-10.4 mg/dL Total Bilirubin 0.4 0.2-1.0 mg/dL Aspartate Amino Transferase (AST) 27 13-40 U/L Alanine Aminotransferase (ALT) 24 7-40 U/L Alkaline Phosphatase 73 46-116 U/L B-Type Natriuretic Peptide 38.46 0-100 pg/mL Total Protein 5.9 5.7-8.2 g/dL Albumin 4.1 3.2-4.8 g/dL Urine Color Light-yellow Yellow Urine Clarity Clear Clear Urine pH 6.5 5.0-9.0 Urine Specific [place] 1.011 1.001-1.035 Urine Protein Negative Negative Urine Ketones Negative Negative Urine Blood Negative Negative /uL Urine Nitrite Negative Negative Urine Bilirubin Negative Negative Urine Urobilinogen Normal Negative mg/dL Urine Leukocyte Esterase Negative Negative /uL Urine RBC <1 0 - 4 /hpf Urine Microscopic WBC 1 0-5 /HPF Urine Squamous Epithelial Cells Few <5 /hpf Urine Bacteria Few H None Seen /hpf Urine Glucose 4+ H Normal mg/dL PATIENT: VIVI ADAIR ACCT: [id number] UNIT: [id number] : 1950 LOC: ER ROOM / BED: / AGE / SEX: 74 / F ADM STATUS: REG ER SERVICE 1105 ORDERING PHYSICIAN: KRISTY ROBLES MD PROCEDURE(s): CXRP - CHEST PORTABLE REASON: [facility] ORDER NUMBER(s): [id number], ACCESSION NUMBER(s): [id number] CHEST RADIOGRAPH Indication: ams Technique: Single frontal view of the chest was obtained COMPARISON: XY CHEST PORTABLE on DOS: 04/27/24, CHEST PORTABLE on DOS: 11/25/21, CHEST PORTABLE on DOS: 11/20/21 FINDINGS: Lines and Tubes: Median sternotomy Lungs: Multifocal airspace disease Pleura: No effusion. No pneumothorax. Cardiomediastinal contours: Unremarkable Bones: Unremarkable IMPRESSION: Multifocal airspace disease and/or pulmonary vascular congestion ORDERING PHYSICIAN: KRISTY ROBLES MD PROCEDURE(s): HWOCT - HEAD WITHOUT CONTRAST REASON: ams ORDER NUMBER(s): [id number], ACCESSION NUMBER(s): [id number] CT brain without contrast CLINICAL INDICATION: ams FINDINGS: The study was performed in a multidetector scanner. This study performed taking axial images from the skull base up to the vertex. Both brain and bone windows are photographed. Dose lowering techniques have been used including automated exposure control and adjustment of mA and/or KV according to patient size. No intraparenchymal hemorrhage or edema. No hydrocephalus or midline shift No extra-axial fluid collections Cortical sulcal markings are slightly prominent On bone windows there are no calvarial fractures. IMPRESSION: 1. No acute intracranial pathology. Mild cortical atrophy. SEPSIS Sepsis Screen Date sepsis recognized/suspect: May 02, 2025 Time Sepsis recognized/suspect: 944 Recent Procedure: No On Antibiotic Therapy: No Respiratory Rate >20: No Heart Rate >90: No Temp<36 C (96.8 F) or >38.3 C: No SBP <90 or MAP <65 mmHG: No New Acute Mental Status Change: Yes Is the patient on CPAP, BIPAP,: No Physician Orders Electrocardigram (05/02/25 09:32) Chest Portable (05/02/25 11:05) Accucheck (05/02/25 11:05) Blood Culture (05/02/25 11:05) Notify Md If Map <65 Or Bp<90 (05/02/25 11:05) If Map<65 Start Vasopressor (05/02/25 11:05) Sepsis Reassesment After Fluid (05/02/25 12:05) Head Without Contrast (05/02/25 11:05) Cefepime 1gm/ 50ml (Maxipime 1gm/50ml) (05/02/25 13:00) Aspirin Tablet (05/03/25 10:00) Atorvastatin (Lipitor) (05/02/25 22:00) Consistent Carb(Ccho)Diabetes (05/02/25 Dinner) Glucose Blood (Accu-Chek Comfort Curve T (05/02/25 17:00) Insulin R (Human) (Insulin R) (05/02/25 22:00) Insulin R (Human) (Insulin R) (05/02/25 17:00) Dextrose 50% Syringe (05/02/25 13:45) Allergies (05/02/25 13:40) Code Status (05/02/25 13:40) Sodium Chloride Lock (Saline Lock Ns) (05/02/25 14:00) Oxygen Per Hour (05/02/25 13:40) Hydrocodone-Acet 5/325mg Tab ([place] 5/32 (05/02/25 13:45) Ondansetron Hcl (Zofran) (05/02/25 13:45) Docusate Sodium Capsule (Colace Capsule) (05/02/25 13:45) Fall Risk Precautions In Place QSHIFT (05/02/25 13:40) Complete Blood Count (05/03/25 04:00) Comprehensive Metabolic Panel (05/03/25 04:00) Condition: Serious (05/02/25 13:40) Acetaminophen Tablet (Tylenol Tablet) (05/02/25 13:45) Maintain Bed Rest (05/02/25 13:40) Sequential Compression Device (05/02/25 ) Hydralazine Injection (Apresoline Inject (05/02/25 14:45) Carvedilol Tablet (Coreg Tablet) (05/02/25 22:00) Amlodipine Tablet (Norvasc Tablet) (05/02/25 16:10) Vital Signs Date Time Temp Pulse Resp B/P (MAP) Pulse Ox O2 Delivery O2 Flow Rate FiO2 05/02/25 16:00 62 16 167/50 (89) 96 05/02/25 14:55 182/53 05/02/25 14:00 98.3 56 12 181/56 (97) 96 98.3 05/02/25 12:00 66 12 173/63 (99) 97 05/02/25 10:19 65 14 96 Nasal Cannula* 2 28 05/02/25 10:12 98.0 61 14 156/67 (96) 98 98.0 05/02/25 09:27 63 05/02/25 09:25 97.3 72 16 129/69 (89) 97 97.3 Laboratory Tests Test 05/02/25 11:37 Lactic Acid Level 1.6 mmol/L (0.4-2.0) White Blood Count 8.3 10^3/uL (4.4-10.8) Medications Medications Dose Ordered Sig/Elvira Route Start Time Stop Time Status Last Admin Dose Admin Cefepime HCl 50 ml @ 12.5 mls/hr Q12H IV 05/02/25 13:00 05/02/25 15:21 12.5 MLS/HR Hydralazine HCl 10 mg Q6HP PRN IV 05/02/25 14:45 05/02/25 14:55 10 MG Lactated Ringer's 1,800 ml @ 1,800 mls/hr ONCE ONCE IV 05/02/25 11:15 05/02/25 12:14 DC 05/02/25 11:14 1,800 MLS/HR Sodium Chloride 10 ml Q8HR IV 05/02/25 14:00 05/02/25 14:25 10 ML Vancomycin HCl 200 ml @ 200 mls/hr ONCE ONCE IV 05/02/25 11:15 05/02/25 12:14 DC 05/02/25 11:49 200 MLS/HR Assessment/Plan Assessment/Plan Acute metabolic encephalopathy Generalized weakness Morbid obesity Hypertension Acute renal injury Pneumonia, unspecified organism Diabetes mellitus with hyperglycemia Plan 1. Admit to telemetry unit 2. Breathing treatment 3. Pain control management 4. IV antibiotic management 5. Management of fluids and electrolytes 6. Consultation for hospitalist 7. Diagnostic test chest x-ray 8. DVT prophylaxis-on aspirin 9. Repeat labs CBC, CMP in a.m. 10. Home medication reviewed and reconciled 11. Continue with current medical management 12. Treatment plan discussed with patient and RN. Patient verbalized understanding. Plan discussed with: Patient, Other (RN) My Orders Orders - BJORN CARVER DNP Procedure Category Date Status Time Aspirin Tablet PHA 05/03/25 In Process 10:00 Atorvastatin (Lipitor) PHA 05/02/25 In Process 22:00 Consistent DIET 05/02/25 Transmitted Carb(Ccho)Diabetes Dinner Glucose Blood PHA 05/02/25 In Process (Accu-Chek Comfort 17:00 Insulin R (Human) PHA 05/02/25 In Process (Insulin R) 22:00 Insulin R (Human) PHA 05/02/25 In Process (Insulin R) 17:00 Dextrose 50% Syringe PHA 05/02/25 In Process 13:45 Allergies MICHAEL 05/02/25 In Process 13:40 Code Status CODE 05/02/25 Transmitted 13:40 Sodium Chloride Lock PHA 05/02/25 In Process (Saline Lock Ns) 14:00 Oxygen Per Hour RT 05/02/25 Transmitted 13:40 Hydrocodone-Acet PHA 05/02/25 In Process 5/325mg Tab ([place] 13:45 Ondansetron Hcl PHA 05/02/25 In Process (Zofran) 13:45 Docusate Sodium PHA 05/02/25 In Process Capsule (Colace 13:45 Fall Risk Precautions MICHAEL 05/02/[address] 13:40 Complete Blood Count LAB 05/03/25 Verified 04:00 Comprehensive LAB 05/03/25 Verified Metabolic Panel 04:00 Condition: Serious MICHAEL 05/02/25 In Process 13:40 Acetaminophen Tablet PHA 05/02/25 In Process (Tylenol Tablet) 13:45 Maintain Bed Rest MICHAEL 05/02/25 In Process 13:40 Sequential MICHAEL 05/02/25 In Process Compression Device Hydralazine Injection PHA 05/02/25 In Process (Apresoline Inject 14:45 Carvedilol Tablet PHA 05/02/25 In Process (Coreg Tablet) 22:00 Amlodipine Tablet PHA 05/02/25 In Process (Norvasc Tablet) 16:10 Problem List: (1) Acute metabolic encephalopathy (2) Generalized weakness (3) Morbid obesity (4) Hypertension (5) Acute renal injury (6) Pneumonia, unspecified organism (7) Diabetes mellitus with hyperglycemia Date of Service: May 02, 2025 Billing Provider: BJORN CARVER DNP Common Visit Codes: [id number] INP/OBS CARE (HIGH) BJORN CARVER DNP May 02, 2025 16:43
[2025-05-02] MEDS ORDERED: NITROGLYCERIN 0.4 MG SL TAB SL PRN (16:45)
[2025-05-02] MEDS ORDERED: MORPHINE SULFATE INJ 2 MG/ml SYRG IV PRN (16:45)
[2025-05-02] MEDS: InsuLIN REG 1unit/0.01ml Soln (100units/ml) SC SCH ×2 (16:51→22:22)
[2025-05-02] MEDS: ACCU-CHEK COMFORT CURVE STRIP VI SCH (16:51)
[2025-05-02] MEDS: HYDROcodone-ACET 5/325MG TAB PO PRN (18:06)
[2025-05-02] MEDS ORDERED: VANCOMYCIN PER PHARMACY 0 MG IV SCH (20:15)
[2025-05-02] MEDS ORDERED: VANCOMYCIN 750mg/100mL D5W or NS KIT IV ONE (20:30)
[2025-05-02] MEDS: VANCOMYCIN 750mg/150ml 150 ML IV ONE ×2 (20:55)
[2025-05-02] MEDS: CARVEDILOL 3.125 MG TAB PO SCH (22:16)
[2025-05-02] MEDS: ATORVASTATIN 20 MG TAB PO SCH (22:17)
[2025-05-03 06:59] LABS: Hematocrit 37.6 % (36.0-46.0); Hemoglobin 12.3 g/dL (12.2-16.2); Mean Corpuscular Hemoglobin 24.5 pg (28.0-32.0); Mean Corpuscular Volume 74.7 fL (80.0-100.0); Nucleated Red Blood Cells % 0.3 %
[2025-05-03 07:00] LABS: Alanine Aminotransferase 18 U/L (7-40); Albumin 3.8 g/dL (3.2-4.8); Alkaline Phosphatase 63 U/L (46-116); Anion Gap 11 (5-15); BUN/Creatinine Ratio 22.4 (10.0-20.0); Bilirubin, Total 0.6 mg/dL (0.2-1.0); Calcium 9.5 mg/dL (8.7-10.4); Carbon Dioxide 28 mmol/L (20-31); Chloride 105 mmol/L (98-107); Glucose 98 mg/dL (74-106); Potassium 3.9 mmol/L (3.5-5.1); Sodium 144 mmol/L (136-145); Total Protein 5.8 g/dL (5.7-8.2)
[2025-05-03 07:04] LABS: Blood Urea Nitrogen 26 mg/dL (9-23)
--- NOTE | 2025-05-03 07:25 | ECG ---
[facility] Test Date: 2025-05-02 Test Time: 09:27:39 Pat Name: VIVI ADAIR Department: ED Room: 0279T Gender: F [employer]visor [employer]: corbin : 1950 Requested By: KRISTY ROBLES Order Number: [id number] Reading MD: Armando Beck Measurements Intervals [place] Rate: 63 P: 33 SD: 164 QRS: -13 QRSD: 93 T: 176 QT: 440 QTc: 451 Interpretive Statements Sinus rhythm Atrial premature complex Abnormal T, consider ischemia, diffuse leads Electronically Signed On 05-04-2025 17:49:44 PDT by Armando Beck Please click the below link to view image of tracing.
[2025-05-03 08:00] VITALS: PULSE 62; RESP 20; O2SAT 100
[2025-05-03] MEDS: VANCOMYCIN 1GM/200ML PM 200 ML IV SCH (11:21)
--- NOTE | 2025-05-03 12:03 | DVHPN2 ---
Subjective The patient seen and examined at bedside. Still alter mental status. Reviewed: Care Plan, H&P, Labs, Medications, Previous Orders, Radiology Changes from previous H/P or p: No Changes Eyes: No Pain, No Vision change, No Conjunctivae inflammation, No Eyelid inflammation, No Other, No Redness ENT: No Ear pain, No Ear discharge, No Nose pain, No Nose discharge, No Nose congestion, No Mouth pain, No Mouth swelling, No Throat pain, No Throat swelling, No Other Cardiovascular: No Chest Pain, No Palpitations, No Orthopnea, No Paroxysmal Noc. Dyspnea, No Edema, No Lt Headedness, No Other Respiratory: No Cough, No Dry, No Shortness of breath, No SOB with excertion, No Wheezing, No Hemoptysis, No Pleuritic Pain, No Sputum, No Other Gastrointestinal: No Nausea, No Vomiting, No Abdominal Pain, No Diarrhea, No Constipation, No Melena, No Hematochezia, No Other Genitourinary: Dysuria; No Frequency, No Incontinence, No Hematuria, No Retention, No Other Musculoskeletal: other (bilateral leg pain); No neck pain, No shoulder pain, No arm pain, No back pain, No hand pain, No leg pain, No foot pain Skin: No Rash, No Lesions, No Jaundice, No Bruising, No Other Objective Vitals Vital Signs Date Time Temp Pulse Resp B/P (MAP) Pulse Ox O2 Delivery O2 Flow Rate FiO2 05/03/25 10:55 66 97/24 05/03/25 10:00 23 94 05/03/25 08:00 Nasal Cannula* 3 32 05/03/25 08:00 98.4 98.4 Intake/Output Intake and Output 05/03/25 07:00 Intake Total 2187.5 ml Output Total 2550 ml Balance -362.5 ml Intake IV Total 2187.5 ml Output Urine Total 2550 ml General Appearance: Alert HEENT: Atraumatic, Mucous membr. moist/pink Neck: Supple Cardiovascular: Regular rate, Normal S1, Normal S2, No murmurs, Gallops, Rubs Abdomen: Normal bowel sounds, Soft, No tenderness Neuro: Cranial nerves 3-12 NL Psych/Mental Status: Mental status NL Medications Current Medications Medications Dose Ordered Sig/Elvira Route Start Time Stop Time Status Last Admin Dose Admin Cefepime HCl 50 ml @ 12.5 mls/hr Q8HR IV 05/02/25 14:00 UNV Cefepime HCl 50 ml @ 12.5 mls/hr Q12H IV 05/02/25 13:00 05/02/25 15:21 12.5 MLS/HR Aspirin 81 mg DAILY PO 05/03/25 10:00 05/03/25 09:51 81 MG Atorvastatin Calcium 10 mg HS PO 05/02/25 22:00 05/02/25 22:17 10 MG Diagnostic Test (Pha) 1 strip ACHS 05/02/25 17:00 05/03/25 11:38 1 STRIP Insulin Human Regular HS SC 05/02/25 22:00 05/02/25 22:22 6 UNITS Insulin Human Regular AC SC 05/02/25 17:00 Dextrose 50 ml UD PRN IV 05/02/25 13:45 Sodium Chloride 10 ml Q8HR IV 05/02/25 14:00 05/03/25 06:27 10 ML Acetaminophen/ Hydrocodone Bitart 1 tab Q4HP PRN PO 05/02/25 13:45 05/02/25 18:06 1 TAB Ondansetron HCl 4 mg Q4HP PRN IV 05/02/25 13:45 Docusate Sodium 100 mg BIDPRN PRN PO 05/02/25 13:45 Acetaminophen 650 mg Q6HP PRN PO 05/02/25 13:45 Hydralazine HCl 10 mg Q6HP PRN IV 05/02/25 14:45 05/02/25 14:55 10 MG Carvedilol 3.125 mg Q12HR PO 05/02/25 22:00 05/03/25 09:51 3.125 MG Nitroglycerin 0.4 mg Q5MINP PRN SL 05/02/25 16:45 Morphine Sulfate 2 mg Q30M PRN IV 05/02/25 16:45 Amlodipine Besylate 5 mg DAILY PO 05/03/25 10:00 05/03/25 09:51 5 MG Vancomycin HCl 0 ml @ 0 mls/hr UD IV 05/02/25 20:15 Vancomycin HCl 200 ml @ 160 mls/hr Q12H IV 05/03/25 11:00 05/03/25 11:21 160 MLS/HR Laboratory Results Laboratory Tests 05/03/25 05:40 Chemistry Test 05/03/25 05:40 Albumin 3.8 g/dL (3.2-4.8) Calcium Level 9.5 mg/dL (8.7-10.4) Total Protein 5.8 g/dL (5.7-8.2) LFT Test 05/03/25 05:40 Alanine Aminotransferase (ALT) 18 U/L (7-40) Alkaline Phosphatase 63 U/L (46-116) Aspartate Amino Transferase (AST) 22 U/L (13-40) Total Bilirubin 0.6 mg/dL (0.2-1.0) Urinalysis Test 05/02/25 11:05 Urine Color Light-yellow (Yellow) Urine Clarity Clear (Clear) Urine pH 6.5 (5.0-9.0) Urine Specific [place] 1.011 (1.001-1.035) Urine Protein Negative (Negative) Urine Ketones Negative (Negative) Urine Blood Negative /uL (Negative) Urine Nitrite Negative (Negative) Urine Bilirubin Negative (Negative) Urine Urobilinogen Normal mg/dL (Negative) Urine Leukocyte Esterase Negative /uL (Negative) Urine RBC <1 /hpf (0 - 4) Urine Microscopic WBC 1 /HPF (0-5) Urine Squamous Epithelial Cells Few /hpf (<5) Urine Bacteria Few /hpf (None Seen) H Urine Glucose 4+ mg/dL (Normal) H Microbiology Microbiology Date/Time Source Procedure Growth Status 05/02/25 11:36 Blood Blood Culture - Preliminary NO GROWTH AFTER 24 HOURS OF INCUBATION. Resulted Labs and/or images reviewed: Labs reviewed by me Assessment/Plan Assessment/Plan Acute metabolic encephalopathy Generalized weakness Morbid obesity Hypertension Acute renal injury Pneumonia, unspecified organism Diabetes mellitus with hyperglycemia Continue current management. Continue IV antibiotic Continue SSI Continue IVF Will monitor kidney function. Plan discussed with: Other (RN) Date of Service: May 03, 2025 Billing Provider: SHIRLEY BRADY MD Common Visit Codes: [id number] INP/OBS CARE(HIGH) SHIRLEY BRADY MD May 03, 2025 12:02
[2025-05-03 15:55] VITALS: BP 145/64; PULSE 66; RESP 18; TEMP 97.9; O2SAT 94; O2SAT 95
[2025-05-03 20:00] VITALS: PULSE 77
[2025-05-03 20:30] VITALS: BP 124/59; PULSE 71; RESP 18; TEMP 98.2; O2SAT 97
[2025-05-03 23:57] VITALS: BP 132/61; PULSE 74; RESP 18; TEMP 97.3; O2SAT 97
[2025-05-04] VITALS (7 sets, daily range): BP systolic 101–128; BP diastolic 50–59; PULSE 65–72; RESP 16–18; TEMP 97.8–98.8; O2SAT 96–98
[2025-05-04] MEDS: cefTRIAXone 1GM/50ML D5W 50 ML IV SCH (08:05)
[2025-05-04 09:38] LABS: Mean Corpuscular Volume 76.0 fL (80.0-100.0); Nucleated Red Blood Cells % 0.0 %
[2025-05-04 09:40] LABS: Hematocrit 35.1 % (36.0-46.0); Hemoglobin 11.0 g/dL (12.2-16.2); Mean Corpuscular Hemoglobin 23.9 pg (28.0-32.0)
--- NOTE | 2025-05-04 11:48 | DVHPN2 ---
Subjective The patient seen and examined at bedside. Still very confused, slurred speech. Reviewed: Care Plan, H&P, Labs, Medications, Previous Orders, Radiology Changes from previous H/P or p: No Changes Eyes: No Pain, No Vision change, No Conjunctivae inflammation, No Eyelid inflammation, No Other, No Redness ENT: No Ear pain, No Ear discharge, No Nose pain, No Nose discharge, No Nose congestion, No Mouth pain, No Mouth swelling, No Throat pain, No Throat swelling, No Other Cardiovascular: No Chest Pain, No Palpitations, No Orthopnea, No Paroxysmal Noc. Dyspnea, No Edema, No Lt Headedness, No Other Respiratory: No Cough, No Dry, No Shortness of breath, No SOB with excertion, No Wheezing, No Hemoptysis, No Pleuritic Pain, No Sputum, No Other Gastrointestinal: No Nausea, No Vomiting, No Abdominal Pain, No Diarrhea, No Constipation, No Melena, No Hematochezia, No Other Genitourinary: Dysuria; No Frequency, No Incontinence, No Hematuria, No Retention, No Other Musculoskeletal: other (bilateral leg pain); No neck pain, No shoulder pain, No arm pain, No back pain, No hand pain, No leg pain, No foot pain Skin: No Rash, No Lesions, No Jaundice, No Bruising, No Other Objective Vitals Vital Signs Date Time Temp Pulse Resp B/P (MAP) Pulse Ox O2 Delivery O2 Flow Rate FiO2 05/04/25 11:21 125/65 05/04/25 11:21 69 05/04/25 04:48 97.8 18 98 97.8 05/03/25 20:00 Nasal Cannula* 2 28 Intake/Output Intake and Output 05/04/25 07:00 Intake Total 1320 ml Output Total 350 ml Balance 970 ml Intake Oral 700 ml IV Total 620 ml Output Urine Total 350 ml General Appearance: Alert HEENT: Atraumatic, Mucous membr. moist/pink Neck: Supple Cardiovascular: Regular rate, Normal S1, Normal S2, No murmurs, Gallops, Rubs Abdomen: Normal bowel sounds, Soft, No tenderness Neuro: Cranial nerves 3-12 NL Psych/Mental Status: Mental status NL Medications Current Medications Medications Dose Ordered Sig/Elvira Route Start Time Stop Time Status Last Admin Dose Admin Cefepime HCl 50 ml @ 12.5 mls/hr Q8HR IV 05/02/25 14:00 UNV Cefepime HCl 50 ml @ 12.5 mls/hr Q12H IV 05/02/25 13:00 05/04/25 00:23 12.5 MLS/HR Aspirin 81 mg DAILY PO 05/03/25 10:00 05/04/25 11:20 81 MG Atorvastatin Calcium 10 mg HS PO 05/02/25 22:00 05/03/25 21:45 10 MG Diagnostic Test (Pha) 1 strip ACHS 05/02/25 17:00 05/04/25 11:22 1 STRIP Insulin Human Regular HS SC 05/02/25 22:00 05/03/25 22:02 3 UNITS Insulin Human Regular AC SC 05/02/25 17:00 05/04/25 11:29 2 UNITS Dextrose 50 ml UD PRN IV 05/02/25 13:45 Sodium Chloride 10 ml Q8HR IV 05/02/25 14:00 05/04/25 05:41 10 ML Acetaminophen/ Hydrocodone Bitart 1 tab Q4HP PRN PO 05/02/25 13:45 05/04/25 11:31 1 TAB Ondansetron HCl 4 mg Q4HP PRN IV 05/02/25 13:45 Docusate Sodium 100 mg BIDPRN PRN PO 05/02/25 13:45 Acetaminophen 650 mg Q6HP PRN PO 05/02/25 13:45 Hydralazine HCl 10 mg Q6HP PRN IV 05/02/25 14:45 05/02/25 14:55 10 MG Carvedilol 3.125 mg Q12HR PO 05/02/25 22:00 05/04/25 11:21 3.125 MG Nitroglycerin 0.4 mg Q5MINP PRN SL 05/02/25 16:45 Morphine Sulfate 2 mg Q30M PRN IV 05/02/25 16:45 Amlodipine Besylate 5 mg DAILY PO 05/03/25 10:00 05/04/25 11:21 5 MG Vancomycin HCl 0 ml @ 0 mls/hr UD IV 05/02/25 20:15 Vancomycin HCl 200 ml @ 160 mls/hr Q12H IV 05/03/25 11:00 05/04/25 11:22 160 MLS/HR Ceftriaxone Sodium 50 ml @ 100 mls/hr DAILY@09 IV 05/04/25 09:00 05/04/25 08:05 100 MLS/HR Laboratory Results Laboratory Tests 05/03/25 05:40 05/04/25 09:15 Urinalysis Test 05/02/25 11:05 Urine Color Light-yellow (Yellow) Urine Clarity Clear (Clear) Urine pH 6.5 (5.0-9.0) Urine Specific [place] 1.011 (1.001-1.035) Urine Protein Negative (Negative) Urine Ketones Negative (Negative) Urine Blood Negative /uL (Negative) Urine Nitrite Negative (Negative) Urine Bilirubin Negative (Negative) Urine Urobilinogen Normal mg/dL (Negative) Urine Leukocyte Esterase Negative /uL (Negative) Urine RBC <1 /hpf (0 - 4) Urine Microscopic WBC 1 /HPF (0-5) Urine Squamous Epithelial Cells Few /hpf (<5) Urine Bacteria Few /hpf (None Seen) H Urine Glucose 4+ mg/dL (Normal) H Microbiology Microbiology Date/Time Source Procedure Growth Status 05/02/25 11:36 Blood Blood Culture - Preliminary NO GROWTH AFTER 48 HOURS OF INCUBATION. Resulted Labs and/or images reviewed: Labs reviewed by me Assessment/Plan Assessment/Plan Acute metabolic encephalopathy Generalized weakness Morbid obesity Hypertension Acute renal injury Pneumonia, unspecified organism Diabetes mellitus with hyperglycemia Continue current management. Continue IV antibiotic Continue SSI Continue IVF Will monitor kidney function. This medical document was created using an electronic medical record system with [employer] direct computerized dictation system. Although this document has been carefully reviewed, there may still be some phonetic and typographical errors. These areas are purely typographical due to imperfections of the software programs, and do not reflect any compromise in the patient's medical care. Plan discussed with: Other (RN) My Orders Orders - SHIRLEY BRADY MD Procedure Category Date Status Time Ceftriaxone 1gm/50ml PHA 05/04/25 In Process D5w (Rocephin) 09:00 Date of Service: May 04, 2025 Billing Provider: SHIRLEY BRADY MD Common Visit Codes: [id number] INP/OBS CARE(HIGH) SHIRLEY BRADY MD May 04, 2025 11:48
[2025-05-05] VITALS (8 sets, daily range): BP systolic 129–155; BP diastolic 50–80; PULSE 68–80; RESP 17–20; TEMP 98.1–99.4; O2SAT 93–98
--- NOTE | 2025-05-05 11:36 | DVHPN2 ---
Subjective The patient seen and examined at bedside. Still very confused, slurred speech. Red and itchy eyes bilateral. Reviewed: Care Plan, H&P, Labs, Medications, Previous Orders, Radiology Changes from previous H/P or p: No Changes Eyes: No Pain, No Vision change, No Conjunctivae inflammation, No Eyelid inflammation, No Other, No Redness ENT: No Ear pain, No Ear discharge, No Nose pain, No Nose discharge, No Nose congestion, No Mouth pain, No Mouth swelling, No Throat pain, No Throat swelling, No Other Cardiovascular: No Chest Pain, No Palpitations, No Orthopnea, No Paroxysmal Noc. Dyspnea, No Edema, No Lt Headedness, No Other Respiratory: No Cough, No Dry, No Shortness of breath, No SOB with excertion, No Wheezing, No Hemoptysis, No Pleuritic Pain, No Sputum, No Other Gastrointestinal: No Nausea, No Vomiting, No Abdominal Pain, No Diarrhea, No Constipation, No Melena, No Hematochezia, No Other Genitourinary: Dysuria; No Frequency, No Incontinence, No Hematuria, No Retention, No Other Musculoskeletal: other (bilateral leg pain); No neck pain, No shoulder pain, No arm pain, No back pain, No hand pain, No leg pain, No foot pain Skin: No Rash, No Lesions, No Jaundice, No Bruising, No Other Objective Vitals Vital Signs Date Time Temp Pulse Resp B/P (MAP) Pulse Ox O2 Delivery O2 Flow Rate FiO2 05/05/25 09:18 98.3 80 18 129/80 (96) 95 98.3 05/04/25 20:00 Nasal Cannula* 2 28 Intake/Output Intake and Output 05/05/25 07:00 Intake Total 250 ml Output Total 550 ml Balance -300 ml Intake Oral 200 ml IV Total 50 ml Output Urine Total 550 ml # Voids 2 # Bowel Movements 1 General Appearance: Alert HEENT: Atraumatic, Mucous membr. moist/pink Neck: Supple Cardiovascular: Regular rate, Normal S1, Normal S2, No murmurs, Gallops, Rubs Abdomen: Normal bowel sounds, Soft, No tenderness Neuro: Cranial nerves 3-12 NL Psych/Mental Status: Mental status NL Medications Current Medications Medications Dose Ordered Sig/Elvira Route Start Time Stop Time Status Last Admin Dose Admin Cefepime HCl 50 ml @ 12.5 mls/hr Q8HR IV 05/02/25 14:00 UNV Cefepime HCl 50 ml @ 12.5 mls/hr Q12H IV 05/02/25 13:00 Hold 05/04/25 00:23 12.5 MLS/HR Aspirin 81 mg DAILY PO 05/03/25 10:00 05/05/25 09:15 81 MG Atorvastatin Calcium 10 mg HS PO 05/02/25 22:00 05/04/25 22:33 10 MG Diagnostic Test (Pha) 1 strip ACHS 05/02/25 17:00 05/05/25 06:26 1 STRIP Insulin Human Regular HS SC 05/02/25 22:00 05/03/25 22:02 3 UNITS Insulin Human Regular AC SC 05/02/25 17:00 05/04/25 17:11 2 UNITS Dextrose 50 ml UD PRN IV 05/02/25 13:45 Sodium Chloride 10 ml Q8HR IV 05/02/25 14:00 05/05/25 06:25 10 ML Acetaminophen/ Hydrocodone Bitart 1 tab Q4HP PRN PO 05/02/25 13:45 05/05/25 09:14 1 TAB Ondansetron HCl 4 mg Q4HP PRN IV 05/02/25 13:45 Docusate Sodium 100 mg BIDPRN PRN PO 05/02/25 13:45 Acetaminophen 650 mg Q6HP PRN PO 05/02/25 13:45 Hydralazine HCl 10 mg Q6HP PRN IV 05/02/25 14:45 05/02/25 14:55 10 MG Carvedilol 3.125 mg Q12HR PO 05/02/25 22:00 05/05/25 09:14 3.125 MG Nitroglycerin 0.4 mg Q5MINP PRN SL 05/02/25 16:45 Morphine Sulfate 2 mg Q30M PRN IV 05/02/25 16:45 Amlodipine Besylate 5 mg DAILY PO 05/03/25 10:00 05/05/25 09:14 5 MG Vancomycin HCl 0 ml @ 0 mls/hr UD IV 05/02/25 20:15 Ceftriaxone Sodium 50 ml @ 100 mls/hr DAILY@09 IV 05/04/25 09:00 05/05/25 09:15 100 MLS/HR Vancomycin HCl 100 ml @ 100 mls/hr Q12H IV 05/05/25 10:00 UNV Laboratory Results Laboratory Tests 05/03/25 05:40 05/04/25 09:15 05/05/25 07:32 Urinalysis Test 05/02/25 11:05 Urine Color Light-yellow (Yellow) Urine Clarity Clear (Clear) Urine pH 6.5 (5.0-9.0) Urine Specific [place] 1.011 (1.001-1.035) Urine Protein Negative (Negative) Urine Ketones Negative (Negative) Urine Blood Negative /uL (Negative) Urine Nitrite Negative (Negative) Urine Bilirubin Negative (Negative) Urine Urobilinogen Normal mg/dL (Negative) Urine Leukocyte Esterase Negative /uL (Negative) Urine RBC <1 /hpf (0 - 4) Urine Microscopic WBC 1 /HPF (0-5) Urine Squamous Epithelial Cells Few /hpf (<5) Urine Bacteria Few /hpf (None Seen) H Urine Glucose 4+ mg/dL (Normal) H Microbiology Microbiology Date/Time Source Procedure Growth Status 05/02/25 11:36 Blood Blood Culture - Preliminary NO GROWTH AFTER 48 HOURS OF INCUBATION. Resulted Labs and/or images reviewed: Labs reviewed by me Assessment/Plan Assessment/Plan Acute metabolic encephalopathy Generalized weakness Morbid obesity Hypertension Acute renal injury Pneumonia, unspecified organism Diabetes mellitus with hyperglycemia ?Conjunctivitis. Continue current management. Continue IV antibiotic Continue SSI Continue IVF Will monitor kidney function. Cipro eye drop bilateral x 7 days. This medical document was created using an electronic medical record system with [employer] computerized dictation system. Although this document has been carefully reviewed, there may still be some phonetic and typographical errors. These areas are purely typographical due to imperfections of the software programs, and do not reflect any compromise in the patient's medical care. Plan discussed with: Patient My Orders Orders - SHIRLEY BRADY MD Procedure Category Date Status Time Pharmacy [facility] 05/05/25 In Process Clarification: 22:00 Date of Service: May 05, 2025 Billing Provider: SHIRLEY BRADY MD Common Visit Codes: [id number] INP/OBS CARE(HIGH) SHIRLEY BRADY MD May 05, 2025 11:36
[2025-05-05] MEDS: VANCOMYCIN 750MG KIT 100 ML IV SCH (15:00)
[2025-05-06] VITALS (8 sets, daily range): BP systolic 117–146; BP diastolic 54–82; PULSE 67–82; RESP 18–24; TEMP 97–99.2; O2SAT 95–99
[2025-05-06] MEDS: CIPROFLOXACIN 0.3%OPTH(EYE) SOL 5ML EACHEYE SCH (00:07)
[2025-05-06 07:20] LABS: Nucleated Red Blood Cells % 0.1 %
[2025-05-06 07:22] LABS: Hematocrit 35.9 % (36.0-46.0); Hemoglobin 11.4 g/dL (12.2-16.2); Mean Corpuscular Hemoglobin 24.5 pg (28.0-32.0); Mean Corpuscular Volume 76.9 fL (80.0-100.0)
[2025-05-06 07:23] LABS: Potassium 4.2 mmol/L (3.5-5.1); Sodium 141 mmol/L (136-145)
[2025-05-06 07:24] LABS: Anion Gap 8 (5-15); Calcium 9.3 mg/dL (8.7-10.4); Carbon Dioxide 24 mmol/L (20-31)
[2025-05-06 07:26] LABS: Chloride 109 mmol/L (98-107)
[2025-05-06 07:29] LABS: BUN/Creatinine Ratio 17.4 (10.0-20.0); Blood Urea Nitrogen 16 mg/dL (9-23)
[2025-05-06 07:31] LABS: Glucose 107 mg/dL (74-106)
--- NOTE | 2025-05-06 17:54 | DVHPN2 ---
Subjective alert,awake,oriented-3 Reviewed: Care Plan, H&P, Labs, Medications, Previous Orders, Radiology Changes from previous H/P or p: No Changes Eyes: No Pain, No Vision change, No Conjunctivae inflammation, No Eyelid inflammation, No Other, No Redness ENT: No Ear pain, No Ear discharge, No Nose pain, No Nose discharge, No Nose congestion, No Mouth pain, No Mouth swelling, No Throat pain, No Throat swelling, No Other Cardiovascular: No Chest Pain, No Palpitations, No Orthopnea, No Paroxysmal Noc. Dyspnea, No Edema, No Lt Headedness, No Other Respiratory: No Cough, No Dry, No Shortness of breath, No SOB with excertion, No Wheezing, No Hemoptysis, No Pleuritic Pain, No Sputum, No Other Gastrointestinal: No Nausea, No Vomiting, No Abdominal Pain, No Diarrhea, No Constipation, No Melena, No Hematochezia, No Other Genitourinary: Dysuria; No Frequency, No Incontinence, No Hematuria, No Retention, No Other Musculoskeletal: other (bilateral leg pain); No neck pain, No shoulder pain, No arm pain, No back pain, No hand pain, No leg pain, No foot pain Skin: No Rash, No Lesions, No Jaundice, No Bruising, No Other Objective Vitals Vital Signs Date Time Temp Pulse Resp B/P (MAP) Pulse Ox O2 Delivery O2 Flow Rate FiO2 05/06/25 17:00 97.7 73 19 124/82 (96) 97 97.7 05/06/25 08:00 Nasal Cannula* 2 28 Intake/Output Intake and Output 05/06/25 07:00 Intake Total 350 ml Output Total 1525 ml Balance -1175 ml Intake Oral 300 ml IV Total 50 ml Output Urine Total 1525 ml # Voids 4 # Bowel Movements 1 General Appearance: Alert HEENT: Atraumatic, Mucous membr. moist/pink Neck: Supple Cardiovascular: Regular rate, Normal S1, Normal S2, No murmurs, Gallops, Rubs Abdomen: Normal bowel sounds, Soft, No tenderness Neuro: Cranial nerves 3-12 NL Psych/Mental Status: Mental status NL Medications Current Medications Medications Dose Ordered Sig/Elvira Route Start Time Stop Time Status Last Admin Dose Admin Cefepime HCl 50 ml @ 12.5 mls/hr Q8HR IV 05/02/25 14:00 UNV Cefepime HCl 50 ml @ 12.5 mls/hr Q12H IV 05/02/25 13:00 Hold 05/04/25 00:23 12.5 MLS/HR Aspirin 81 mg DAILY PO 05/03/25 10:00 05/06/25 09:08 81 MG Atorvastatin Calcium 10 mg HS PO 05/02/25 22:00 05/05/25 23:52 10 MG Diagnostic Test (Pha) 1 strip ACHS 05/02/25 17:00 05/06/25 16:44 1 STRIP Insulin Human Regular HS SC 05/02/25 22:00 05/03/25 22:02 3 UNITS Sodium Chloride 10 ml Q8HR IV 05/02/25 14:00 05/06/25 14:00 10 ML Docusate Sodium 100 mg BIDPRN PRN PO 05/02/25 13:45 Acetaminophen 650 mg Q6HP PRN PO 05/02/25 13:45 Hydralazine HCl 10 mg Q6HP PRN IV 05/02/25 14:45 05/02/25 14:55 10 MG Carvedilol 3.125 mg Q12HR PO 05/02/25 22:00 05/06/25 09:09 3.125 MG Amlodipine Besylate 5 mg DAILY PO 05/03/25 10:00 05/06/25 09:08 5 MG Ceftriaxone Sodium 50 ml @ 100 mls/hr DAILY@09 IV 05/04/25 09:00 05/06/25 09:07 100 MLS/HR Ciprofloxacin HCl 1 drop DAILY EACHEYE 05/05/25 22:00 05/06/25 09:09 1 DROP Laboratory Results Laboratory Tests 05/06/25 06:49 Chemistry Test 05/06/25 06:49 Calcium Level 9.3 mg/dL (8.7-10.4) Urinalysis Test 05/02/25 11:05 Urine Color Light-yellow (Yellow) Urine Clarity Clear (Clear) Urine pH 6.5 (5.0-9.0) Urine Specific [place] 1.011 (1.001-1.035) Urine Protein Negative (Negative) Urine Ketones Negative (Negative) Urine Blood Negative /uL (Negative) Urine Nitrite Negative (Negative) Urine Bilirubin Negative (Negative) Urine Urobilinogen Normal mg/dL (Negative) Urine Leukocyte Esterase Negative /uL (Negative) Urine RBC <1 /hpf (0 - 4) Urine Microscopic WBC 1 /HPF (0-5) Urine Squamous Epithelial Cells Few /hpf (<5) Urine Bacteria Few /hpf (None Seen) H Urine Glucose 4+ mg/dL (Normal) H Microbiology Microbiology Date/Time Source Procedure Growth Status 05/02/25 11:36 Blood Blood Culture - Preliminary NO GROWTH AFTER 72 HOURS OF INCUBATION. Resulted Labs and/or images reviewed: Labs reviewed by me, Image(s) reviewed by me Assessment/Plan Assessment/Plan metabolic encephalopathy- resolved/back to baseline colostomy status h/o colon cancer obesity dm htn h/o chf per records Plan discussed with: Patient Date of Service: May 06, 2025 Billing Provider: IVANA BAIG MD Common Visit Codes: [id number] INP/OBS CARE(MOD) IVANA BAIG MD May 06, 2025 17:54
[2025-05-06] MEDS: ACETAMINOPHEN 325 MG TAB PO PRN (21:23)
[2025-05-07] VITALS (10 sets, daily range): BP systolic 121–147; BP diastolic 54–72; PULSE 20–80; RESP 18–20; TEMP 98.2–98.9; O2SAT 92–98
--- NOTE | 2025-05-07 13:32 | DVH ---
CHEST RADIOGRAPH Indication: F/U ON PNEUMONIA Technique: Single frontal view of the chest was obtained COMPARISON: XY CHEST PORTABLE on DOS: 05/02/25, XY CHEST PORTABLE on DOS: 04/27/24, CHEST PORTABLE on D OS: 11/25/21, CHEST PORTABLE on DOS: 11/20/21 FINDINGS: Lines and Tubes: Median sternotomy Lungs: Congestion Pleura: No effusion. No pneumothorax. Cardiomediastinal contours: Unremarkable Bones: Unremarkable IMPRESSION: Unchanged Pulmonary vascular congestion
[2025-05-07] MEDS: FUROSEMIDE 20 MG TAB PO ONE (15:39)
--- NOTE | 2025-05-07 17:28 | DVHPN2 ---
Subjective alert,awake,oriented-two today/did not use her bipap last night/no fever or headache Reviewed: Care Plan, H&P, Labs, Medications, Previous Orders, Radiology Changes from previous H/P or p: No Changes Eyes: No Pain, No Vision change, No Conjunctivae inflammation, No Eyelid inflammation, No Other, No Redness ENT: No Ear pain, No Ear discharge, No Nose pain, No Nose discharge, No Nose congestion, No Mouth pain, No Mouth swelling, No Throat pain, No Throat swelling, No Other Cardiovascular: No Chest Pain, No Palpitations, No Orthopnea, No Paroxysmal Noc. Dyspnea, No Edema, No Lt Headedness, No Other Respiratory: No Cough, No Dry, No Shortness of breath, No SOB with excertion, No Wheezing, No Hemoptysis, No Pleuritic Pain, No Sputum, No Other Gastrointestinal: No Nausea, No Vomiting, No Abdominal Pain, No Diarrhea, No Constipation, No Melena, No Hematochezia, No Other Genitourinary: Dysuria; No Frequency, No Incontinence, No Hematuria, No Retention, No Other Musculoskeletal: other (bilateral leg pain); No neck pain, No shoulder pain, No arm pain, No back pain, No hand pain, No leg pain, No foot pain Skin: No Rash, No Lesions, No Jaundice, No Bruising, No Other Objective Vitals Vital Signs Date Time Temp Pulse Resp B/P (MAP) Pulse Ox O2 Delivery O2 Flow Rate FiO2 05/07/25 17:00 98.2 78 18 147/69 (95) 95 98.2 05/07/25 15:18 2.0 28 05/07/25 08:00 Nasal Cannula* Intake/Output Intake and Output 05/07/25 07:00 Intake Total 850 ml Output Total 775 ml Balance 75 ml Intake Oral 800 ml IV Total 50 ml Output Urine Total 775 ml General Appearance: Alert HEENT: Atraumatic, Mucous membr. moist/pink Neck: Supple Cardiovascular: Regular rate, Normal S1, Normal S2, No murmurs, Gallops, Rubs Abdomen: Normal bowel sounds, Soft, No tenderness Neuro: Cranial nerves 3-12 NL Psych/Mental Status: Mental status NL Medications Current Medications Medications Dose Ordered Sig/Elvira Route Start Time Stop Time Status Last Admin Dose Admin Cefepime HCl 50 ml @ 12.5 mls/hr Q8HR IV 05/02/25 14:00 UNV Cefepime HCl 50 ml @ 12.5 mls/hr Q12H IV 05/02/25 13:00 Hold 05/04/25 00:23 12.5 MLS/HR Aspirin 81 mg DAILY PO 05/03/25 10:00 05/07/25 09:48 81 MG Atorvastatin Calcium 10 mg HS PO 05/02/25 22:00 05/06/25 21:24 10 MG Sodium Chloride 10 ml Q8HR IV 05/02/25 14:00 05/07/25 05:40 10 ML Docusate Sodium 100 mg BIDPRN PRN PO 05/02/25 13:45 Acetaminophen 650 mg Q6HP PRN PO 05/02/25 13:45 05/06/25 21:23 650 MG Hydralazine HCl 10 mg Q6HP PRN IV 05/02/25 14:45 05/02/25 14:55 10 MG Carvedilol 3.125 mg Q12HR PO 05/02/25 22:00 05/07/25 09:48 3.125 MG Amlodipine Besylate 5 mg DAILY PO 05/03/25 10:00 05/07/25 09:48 5 MG Ceftriaxone Sodium 50 ml @ 100 mls/hr DAILY@09 IV 05/04/25 09:00 05/07/25 09:48 100 MLS/HR Ciprofloxacin HCl 1 drop DAILY EACHEYE 05/05/25 22:00 05/07/25 09:57 1 DROP Furosemide 20 mg DAILY PO 05/08/25 10:00 Laboratory Results Laboratory Tests 05/06/25 06:49 Urinalysis Test 05/02/25 11:05 Urine Color Light-yellow (Yellow) Urine Clarity Clear (Clear) Urine pH 6.5 (5.0-9.0) Urine Specific [place] 1.011 (1.001-1.035) Urine Protein Negative (Negative) Urine Ketones Negative (Negative) Urine Blood Negative /uL (Negative) Urine Nitrite Negative (Negative) Urine Bilirubin Negative (Negative) Urine Urobilinogen Normal mg/dL (Negative) Urine Leukocyte Esterase Negative /uL (Negative) Urine RBC <1 /hpf (0 - 4) Urine Microscopic WBC 1 /HPF (0-5) Urine Squamous Epithelial Cells Few /hpf (<5) Urine Bacteria Few /hpf (None Seen) H Urine Glucose 4+ mg/dL (Normal) H Microbiology Microbiology Date/Time Source Procedure Growth Status 05/02/25 11:36 Blood Blood Culture - Final NO GROWTH AFTER 5 DAYS OF INCUBATION. Complete Labs and/or images reviewed: Labs reviewed by me, Image(s) reviewed by me Assessment/Plan Assessment/Plan metabolic encephalopathy- resolved/back to baseline colostomy status h/o colon cancer obesity dm htn h/o chf per records/chronic diatolic chf- treat/check echo/? 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 dementia /neuro consult/add bipap at night Plan discussed with: Patient My Orders Orders - IVANA BAIG MD Procedure Category Date Status Time Chest Xray 1 View XY 05/07/25 Resulted 10:35 Pt Request For Service PT 05/07/25 Logged 10:35 * Neurology Consult CONS 05/07/25 Transmitted 14:57 Furosemide Tablet PHA 05/08/25 In Process (Lasix Tablet) 10:00 Bipap/Cpap For Sleep RT 05/07/25 Logged Apnea 14:59 Date of Service: May 07, 2025 Billing Provider: IVANA BAIG MD Common Visit Codes: [id number] INP/OBS CARE(MOD) IVANA BAIG MD May 07, 2025 17:28
[2025-05-08] VITALS (11 sets, daily range): BP systolic 126–142; BP diastolic 65–74; PULSE 76–84; RESP 17–20; TEMP 97.4–99.5; O2SAT 95–98
[2025-05-08] MEDS: FUROSEMIDE 20 MG TAB PO SCH (10:41)
--- NOTE | 2025-05-08 14:56 | DVHPN2 ---
Subjective alert,awake,oriented-three today/denies any chest pain or cough/abdominal pain not seen by neuro yet echo report not ready Reviewed: Care Plan, H&P, Labs, Medications, Previous Orders, Radiology Changes from previous H/P or p: No Changes Eyes: No Pain, No Vision change, No Conjunctivae inflammation, No Eyelid inflammation, No Other, No Redness ENT: No Ear pain, No Ear discharge, No Nose pain, No Nose discharge, No Nose congestion, No Mouth pain, No Mouth swelling, No Throat pain, No Throat swelling, No Other Cardiovascular: No Chest Pain, No Palpitations, No Orthopnea, No Paroxysmal Noc. Dyspnea, No Edema, No Lt Headedness, No Other Respiratory: No Cough, No Dry, No Shortness of breath, No SOB with excertion, No Wheezing, No Hemoptysis, No Pleuritic Pain, No Sputum, No Other Gastrointestinal: No Nausea, No Vomiting, No Abdominal Pain, No Diarrhea, No Constipation, No Melena, No Hematochezia, No Other Genitourinary: Dysuria; No Frequency, No Incontinence, No Hematuria, No Retention, No Other Musculoskeletal: other (bilateral leg pain); No neck pain, No shoulder pain, No arm pain, No back pain, No hand pain, No leg pain, No foot pain Skin: No Rash, No Lesions, No Jaundice, No Bruising, No Other Objective Vitals Vital Signs Date Time Temp Pulse Resp B/P (MAP) Pulse Ox O2 Delivery O2 Flow Rate FiO2 05/08/25 10:42 137/70 05/08/25 10:40 80 05/08/25 09:05 96 Nasal Cannula* 2 28 05/08/25 09:00 98.7 18 98.7 Intake/Output Intake and Output 05/08/25 06:59 Intake Total 1030 ml Output Total 1100 ml Balance -70 ml Intake Oral 980 ml IV Total 50 ml Output Urine Total 1100 ml General Appearance: Alert, Oriented X3, No acute distress HEENT: Atraumatic, Mucous membr. moist/pink Neck: Supple Cardiovascular: Regular rate, Normal S1, Normal S2, No murmurs, Gallops, Rubs Abdomen: Normal bowel sounds, Soft, No tenderness, Other (colostomy fn) Neuro: Normal speech, Normal tone, Sensation intact, Cranial nerves 3-12 NL Psych/Mental Status: Mental status NL Medications Current Medications Medications Dose Ordered Sig/Elvira Route Start Time Stop Time Status Last Admin Dose Admin Cefepime HCl 50 ml @ 12.5 mls/hr Q8HR IV 05/02/25 14:00 UNV Cefepime HCl 50 ml @ 12.5 mls/hr Q12H IV 05/02/25 13:00 Hold 05/04/25 00:23 12.5 MLS/HR Aspirin 81 mg DAILY PO 05/03/25 10:00 05/08/25 10:41 81 MG Atorvastatin Calcium 10 mg HS PO 05/02/25 22:00 05/07/25 21:52 10 MG Sodium Chloride 10 ml Q8HR IV 05/02/25 14:00 05/08/25 05:29 10 ML Docusate Sodium 100 mg BIDPRN PRN PO 05/02/25 13:45 Acetaminophen 650 mg Q6HP PRN PO 05/02/25 13:45 05/08/25 02:21 650 MG Hydralazine HCl 10 mg Q6HP PRN IV 05/02/25 14:45 05/02/25 14:55 10 MG Carvedilol 3.125 mg Q12HR PO 05/02/25 22:00 05/08/25 10:40 3.125 MG Amlodipine Besylate 5 mg DAILY PO 05/03/25 10:00 05/08/25 10:42 5 MG Ceftriaxone Sodium 50 ml @ 100 mls/hr DAILY@09 IV 05/04/25 09:00 05/08/25 10:40 100 MLS/HR Ciprofloxacin HCl 1 drop DAILY EACHEYE 05/05/25 22:00 05/08/25 10:42 1 DROP Furosemide 20 mg DAILY PO 05/08/25 10:00 05/08/25 10:41 20 MG Laboratory Results Laboratory Tests 05/06/25 06:49 Urinalysis Test 05/02/25 11:05 Urine Color Light-yellow (Yellow) Urine Clarity Clear (Clear) Urine pH 6.5 (5.0-9.0) Urine Specific Tucker 1.011 (1.001-1.035) Urine Protein Negative (Negative) Urine Ketones Negative (Negative) Urine Blood Negative /uL (Negative) Urine Nitrite Negative (Negative) Urine Bilirubin Negative (Negative) Urine Urobilinogen Normal mg/dL (Negative) Urine Leukocyte Esterase Negative /uL (Negative) Urine RBC <1 /hpf (0 - 4) Urine Microscopic WBC 1 /HPF (0-5) Urine Squamous Epithelial Cells Few /hpf (<5) Urine Bacteria Few /hpf (None Seen) H Urine Glucose 4+ mg/dL (Normal) H Microbiology Microbiology Date/Time Source Procedure Growth Status 05/02/25 11:36 Blood Blood Culture - Final NO GROWTH AFTER 5 DAYS OF INCUBATION. Complete Labs and/or images reviewed: Labs reviewed by me, Image(s) reviewed by me Assessment/Plan Assessment/Plan metabolic encephalopathy- resolved/back to baseline- colostomy status h/o colon cancer obesity dm htn h/o chf per records/chronic diatolic chf- treat/check echo/? rt heart failure from lacho- episodic confusion- ? dementia /neuro consult/add bipap at night sign out note- check echo(report not ready yet) check neuro opinion( not seen yet) if stable may be dc in am Plan discussed with: Patient, Other My Orders Orders - IVANA BAIG MD Procedure Category Date Status Time * Neurology Consult CONS 05/07/25 Transmitted 14:57 Furosemide Tablet PHA 05/08/25 In Process (Lasix Tablet) 10:00 Bipap/Cpap For Sleep RT 05/07/25 Logged Apnea 14:59 Date of Service: May 08, 2025 Billing Provider: IVANA BAIG MD Common Visit Codes: [id number] INP/OBS CARE(MOD) IVANA BAIG MD May 08, 2025 14:55
--- NOTE | 2025-05-08 19:41 | DVHINCON2 ---
Date of service: May 08, [address] Gastelum Reason for Consultation Episodic confusion/? Dementia evaluate and given opinion History of Present Illness Ms. Aparicio is a 76 years old right-handed female with a history of hypertension, diabetes, dyslipidemia, coronary artery disease, congestive heart failure, anxiety, depression, cervical cancer, colon cancer, she came to the [facility] on 05/02/2025 with a chief complaint of ALOC, in the hospital, the patient was found to have dehydration/acute kidney injury. At mal t time, she is alert and oriented times x3, good social skills. The history is obtained from her without bilingual staff's interpretation, which has been confirmed with her daughter later Apparently, the patient became confused, disoriented, only oriented to person at home, in the emergency room, she was noticed to be mildly confused. In the night, she talked to nonexisting people, she also reported people smoking marijuana in the room, and she saw smoke coming out of her APAP machine. In the hospital, the patient was found to have dehydration/acute kidney injury. Previously she had similar symptoms when she had urinary tract infection The patient denies and her daughter confirmed that She has no symptoms of dementia or memory difficulty. There is no family history of dementia or memory difficulty She snores but not nightly, sometimes is is loud, her daughter has witnessed choking on her. The patient relates refreshing sleep, and she denies excessive daytime sleepiness/fatigue on regular basis She has tingling, numbness and code feeling in the feet for eight years, she is on Lyrica 25 mg b.i.d. with improvement She has gait disturbance/imbalance, she has pain in the right hip and the knee, and she needs a walker to walk [phone] no answer Urinalysis, 05/02/2025: WBC: 1, urine leukocyte esterase: Negative WBC/HB/PLT/MCV, 05/06/25: 7.1/11.4/175/76.9 BUN/CR, 05/02/2025: 36/1.64, 05/03/2025: 26/1.16, 05/06/2025: 16/0.92 GFR, 05/02/2025: 32, 05/03/2025: 49, 05/06/2025: 65 Liver function tests, 05/02/2025: Unremarkable CT head, 05/02/2025: No acute intracranial pathology. Mild cortical atrophy. Past Medical History Hypertension, diabetes, dyslipidemia, coronary artery disease, congestive heart failure, anxiety, depression, cervical cancer, colon cancer Past Surgical History Appendectomy, hysterectomy, colostomy Family History: FH: kidney disease G8 MOTHER, FHx: stroke G8 MOTHER, Family History Hypertension, diabetes, stroke, kidney disease, Social History She denies a history of tobacco smoking, drug/alcohol abuse Allergies: Coded Allergies: NO KNOWN ALLERGIES (Unverified , 01/19/20) Home Meds Active Scripts Cefdinir (Cefdinir) 300 Mg Cap, 1 CAP PO BID for 7 Days, #14 CAP Prov:EMIGDIO NICOLE RESIDENT 05/01/24 Metoprolol Succinate (Toprol Xl) 50 Mg Tab, 25 MG PO DAILY for 90 Days, #90 TAB Prov:EMIGDIO NICOLE RESIDENT 05/01/24 Sacubitril-Valsartan (Entresto 24-26 mg) 1 Tab Tab, 1 TAB PO BID for 90 Days, #180 TAB Prov:EMIGDIO NICOLE RESIDENT 05/01/24 Clopidogrel Bisulfate (Plavix) 75 Mg Tab, 1 TAB PO DAILY, #90 TAB 3 Refills Prov:JOHANA MARTINEZ MD 12/01/21 Aspirin (ASPIRIN 81) 81 Mg Tab, 81 MG OR DAILY, #90 TAB Prov:JOHANA MARTINEZ MD 12/01/21 Sucralfate (CARAFATE) 1 Gm Tab, 1 GM OR Q6HR for 14 Days, #56 TAB Prov:JOHANA MARTINEZ MD 11/24/21 Pantoprazole Sodium Sesquihydr (Pantoprazole Sodium) 40 Mg Tab, 40 MG PO DAILY, #30 TAB Prov:JOHANA MARTINEZ MD 11/24/21 Ferrous Sulfate (Iron) 325 Mg Tab, 325 MG PO BID, #180 TAB Prov:JOHANA MARTINEZ MD 11/24/21 Reported Medications Cholecalciferol (D3 SUPER STRENGTH) 2,000 Unit Cap, 1 CAP PO DAILY 04/29/24 Semaglutide (Ozempic) 2 Mg/3 Ml Inj, 1 MG SC QWEEKLY, INJ 04/29/24 Insulin Degludec (Tresiba) 100 Unit/Ml Inj, 80 UNIT SC, INJ 04/29/24 Dapagliflozin Propanediol (Farxiga) 10 Mg Tab, 10 MG PO DAILY, TAB 04/28/24 Albuterol Sulfate (Albuterol Sulfate Hfa) 108 Mcg/Act Aer, 1 PUFF INH Q4HR PRN 04/28/24 Alendronate Sodium (Alendronate Sodium) 70 Mg Tab, 1 TAB PO QWEEKLY 04/28/24 Pregabalin (Pregabalin) 75 Mg Cap, 1 CAP PO BID 04/28/24 Ondansetron Odt 4MG Tab (ZOFRAN PO) 4 Mg Tb, 4 MG PO DAILY ODT TAB-DISSOLVE IN MOUTH, THEN SWALLOW 04/28/24 Meclizine HCl (Meclizine Hydrochloride) 25 Mg Tab, 1 TAB PO H43SUIV PRN for NAUSEA / VOMITING for 10 Days, #20 04/28/24 Tramadol Hcl (Tramadol Hcl) 50 Mg Tab, 50 MG PO BIDP PRN for PAIN SCALE 7 THRU 10, MG 11/21/21 Baclofen (Baclofen) 10 Mg Tab, 10 MG PO TID, TAB 12/03/19 Simvastatin (Simvastatin) 20 Mg Tab, 20 MG PO HS for 30 Days 12/03/19 Furosemide (Lasix) 40 Mg Tab, 40 MG PO DAILY, TAB 12/03/19 Rivaroxaban (Xarelto Tablet) 20 Mg Tb, 20 MG PO DAILY, TAB 12/03/19 Current Medications Current Medications Medications (Trade) Dose Ordered Sig/Elvira Route PRN Reason Start Time Stop Time Status Last Admin Furosemide (Lasix Tablet) 20 mg DAILY PO 05/08/25 10:00 05/08/25 10:41 Review of Systems As above, the other systems are negative Vital Signs Vital Signs Date Time Temp Pulse Resp B/P (MAP) Pulse Ox O2 Delivery O2 Flow Rate FiO2 05/08/25 17:00 99.5 80 17 132/74 (93) 97 99.5 05/08/25 09:05 Nasal Cannula* 2 28 Physical Exam GENERAL EXAM: General: the patient is well developed and nourished. No acute distress. HEENT: Normocephalic, neck is supple, no carotid bruits. No mass. RESPIRATORY: Normal respiratory effort with symmetrical lung expansion. Lungs clear to auscultation. CARDIOVASCULAR: Regular rate and rhythm with no murmurs. S1, S2. ABDOMEN: Soft, nontender, normal bowel sound, she has a colostomy bag NEUROLOGICAL: MENTAL STATUS: Awake and alert. Oriented to person, place, time and general circumstances. Able to give personal history. SPEECH, LANGUAGE, HIGHER CORTICAL FUNCTION: no aphasia or dysathria. CRANIAL NERVES: #2: Intact visual salgado to confrontation. The optic discs were sharp #3,4,6: Pupils are equal, round and reactive. EOMs full and conjugate. No nystagmus. #5: Facial sensation intact in all three divisions bilaterally. Mandibular strength intact. #7: Facial muscles symmetrical and strength intact. #8: Hearing grossly normal to voice. #9,10: Uvula and soft palate rise in the midline. Swallow and voice are normal. #11: Trapezius and sternomastoid strength intact bilaterally. #12: Tongue midline. No fasciculations or atrophy. SENSATION: Sensation to touch and pinprick is normal. MOTOR: Normal tone in the upper and lower extremity. Normal muscle bulk. No fas ciculations. No abnormal movements or posturing. Muscle strength of the major groups in the upper extremities is 5/5. Muscle strength of the major groups in the lower extremities is 5/5. REFLEXES: Deep tendon reflexes are symmetrically diminished. No pathological reflexes. CEREBELLAR/COORDINATION: Finger to nose is normal bilaterally. GAIT/STATION: deferred. Labs/Diagnostic Data Labs Test 05/07/25 11:43 05/06/25 06:49 05/05/25 07:32 05/04/25 10:00 Range/Units POC Glucose 152 H 70-106 mg/dl White Blood Count 7.3 4.4-10.8 10^3/uL Red Blood Count 4.67 4.0-5.20 10^6/uL Hemoglobin 11.4 L 12.2-16.2 g/dL Hematocrit 35.9 L 36.0-46.0 % Mean Corpuscular Volume 76.9 L 80.0-100.0 fL Mean Corpuscular Hemoglobin 24.5 L 28.0-32.0 pg Mean Corpuscular Hemoglobin Concent 31.8 L 32.0-36.0 g/dL Red Cell Distribution Width 20.1 H 11.8-14.3 % Platelet Count 175 140-450 10^3/uL Mean Platelet Volume 7.9 6.9-10.8 fL Neutrophils (%) (Auto) 68.2 37.0-80.0 % Lymphocytes (%) (Auto) 17.6 10.0-50.0 % Monocytes (%) (Auto) 10.6 0.0-12.0 % Eosinophils (%) (Auto) 3.0 0.0-7.0 % Basophils (%) (Auto) 0.6 0.0-2.0 % Neutrophils # (Auto) 5.0 1.6-8.6 10 ^3/uL Lymphocytes # (Auto) 1.3 0.4-5.4 10 ^3/uL Monocytes # (Auto) 0.8 0-1.3 10 ^3/uL Eosinophils # (Auto) 0.2 0-0.8 10 ^3/uL Basophils # (Auto) 0 0-0.2 10 ^3/uL Nucleated Red Blood Cells 0.1 % Sodium Level 141 136-145 mmol/L Potassium Level 4.2 3.5-5.1 mmol/L Chloride Level 109 H 98-107 mmol/L Carbon Dioxide Level 24 20-31 mmol/L Anion Gap 8 5-15 Blood Urea Nitrogen 16 9-23 mg/dL Creatinine 0.92 0.550-1.02 mg/dL Glomerular Filtration Rate Calc 65 >90 mL/min BUN/Creatinine Ratio 17.4 10.0-20.0 Serum Glucose 107 H 74-106 mg/dL Calcium Level 9.3 8.7-10.4 mg/dL Random Vancomycin Level 15.7 H 5-10 ug/mL Vancomycin Level Trough 22.7 H 5-10 ug/mL Test 05/03/25 05:40 05/02/25 11:37 05/02/25 11:05 Range/Units Total Bilirubin 0.6 0.2-1.0 mg/dL Aspartate Amino Transferase (AST) 22 13-40 U/L Alanine Aminotransferase (ALT) 18 7-40 U/L Alkaline Phosphatase 63 46-116 U/L Total Protein 5.8 5.7-8.2 g/dL Albumin 3.8 3.2-4.8 g/dL Prothrombin Time 11.9 H 9.3-11.8 sec Prothrombin Time INR 1.14 0.9-1.15 Activated Partial Thromboplast Time 28.4 24.5-34.5 SEC Lactic Acid Level 1.6 0.4-2.0 mmol/L B-Type Natriuretic Peptide 38.46 0-100 pg/mL Urine Color Light-yellow Yellow Urine Clarity Clear Clear Urine pH 6.5 5.0-9.0 Urine Specific [place] 1.011 1.001-1.035 Urine Protein Negative Negative Urine Ketones Negative Negative Urine Blood Negative Negative /uL Urine Nitrite Negative Negative Urine Bilirubin Negative Negative Urine Urobilinogen Normal Negative mg/dL Urine Leukocyte Esterase Negative Negative /uL Urine RBC <1 0 - 4 /hpf Urine Microscopic WBC 1 0-5 /HPF Urine Squamous Epithelial Cells Few <5 /hpf Urine Bacteria Few H None Seen /hpf Urine Glucose 4+ H Normal mg/dL Microbiology Date/Time Source Procedure Growth Status 05/02/25 11:36 Blood Blood Culture - Final NO GROWTH AFTER 5 DAYS OF INCUBATION. Complete Assessment Altered mental status, hallucination Acute metabolic encephalopathy secondary to dehydration/acute kidney failure Morbid obesity Sleep-related breathing disorder Diabetic polyneuropathy though with an unremarkable sensory examination Plan/Recommendation Hypertension, diabetes, dyslipidemia, coronary artery disease, congestive heart failure, anxiety, depression, cervical cancer, colon cancer Appendectomy, hysterectomy, colectomy Hypertension, diabetes, heart disease, kidney disease, no dementia, no stroke She denies a history of drug, alcohol abuse, she has no history of tobacco smoking As above, the other systems are negative Monitoring Supportive treatment Telemetry Vitamin B12, folic acid, TSH, FT4 SIFE EEG, okay as outpatient Lyrica Foot care Daily foot inspection Soft, wide and protect she was only Daughter is to observe her sleep symptoms Weight control Follow up with me on discharge More recommendation per clinical course Prognosis: Poor This medical document was created using an electronic medical record system with [employer] dictation system. Although this document has been carefully reviewed, there may still be some phonetic and typographical errors. These areas are purely typographical due to imperfections of the software programs, and do not reflect any compromise in the patient's medical care. Plan discussed with: Patient, Daughter, Other DOLORES JAIN MD May 08, 2025 19:41
[2025-05-09] VITALS (9 sets, daily range): BP systolic 122–143; BP diastolic 55–71; PULSE 75–93; RESP 17–20; TEMP 98.4–98.8; O2SAT 96–99
--- NOTE | 2025-05-09 00:27 | DVHSR ---
APPROVED REPORT EXAM: Two-dimensional and M-mode echocardiogram with Doppler and color Doppler. Blood Pressure: 132/59 mmHg INDICATION HTN/SHF Surgery/Intervention CABG: RISK FACTORS Obesity: Height: 5'6", Weight: 235 DIMENSIONS LVDd4.8 (3.8-5.7cm)LA (2D)3.6 (1.9-4.0cm)Aortic Root3.3 (2.0-3.7cm) LVDs3.3 (2.5-4.0cm)LA (MM) (1.9-4.0cm)Aortic Cusp Exc1.7 (1.5-2.0cm) EF (%) 60.0 (55-70%)Rt. Atrium (1.9-4.0cm)Asc. Aorta cm IVSd1.0 (0.7-1.1cm)RV (D) (1.8-2.4cm) PWd1.1 (0.7-1.1cm) Mitral Valve MitralMitral Stenosis E wave1.08m/sMV Mean GR.mmHg A wave0.99m/sMV Peak GR.mmHg E/A ratio1.12D MVAcm2 DECEL [id number] 1/2 Timems Aortic Valve Aortic ValveAortic Stenosis V10.87m/Conrado Mean GR.2mmHg V21.05m/Conrado Peak GR.4mmHg LVOT Diameter2.0 (1.8-2.4cm)Doppler AVA2.60cm2 Other Information Quality : LimitedRhythm : Technically limited study due to body habitus, patient altered and lying flat, pushing probe away du ring study. Conclusion MILD LVH AND MILD LV DIASTOLIC DYSFUNCTION DYSKINESIS OF IVS MODERATELY DILATED RV NORMAL VALVES NO EFFUSION
[2025-05-09 11:39] LABS: Free T4 (Free Thyroxine) 1.24 ng/dL (0.89-1.76)
--- NOTE | 2025-05-09 16:24 | DVHDS2 ---
Discharge Summary Date of Admission May 02, 2025 at 16:41 Date of Discharge: May 09, 2025 Admitting Diagnosis acute metabolic is history increase Labs/Diagnostic Data: Laboratory Results Test 05/08/25 20:43 05/07/25 11:43 05/06/25 06:49 05/05/25 07:32 Vitamin B12 Level 2791 pg/mL (211-911) Folic Acid 30.19 ng/mL (>5.38) Thyroid Stimulating Hormone (TSH) 2.28 uIU/mL (0.55-4.78) Free Thyroxine (T4) Calculated 1.24 ng/dL (0.89-1.76) POC Glucose 152 mg/dl (70-106) White Blood Count 7.3 10^3/uL (4.4-10.8) Red Blood Count 4.67 10^6/uL (4.0-5.20) Hemoglobin 11.4 g/dL (12.2-16.2) Hematocrit 35.9 % (36.0-46.0) Mean Corpuscular Volume 76.9 fL (80.0-100.0) Mean Corpuscular Hemoglobin 24.5 pg (28.0-32.0) Mean Corpuscular Hemoglobin Concent 31.8 g/dL (32.0-36.0) Red Cell Distribution Width 20.1 % (11.8-14.3) Platelet Count 175 10^3/uL (140-450) Mean Platelet Volume 7.9 fL (6.9-10.8) Neutrophils (%) (Auto) 68.2 % (37.0-80.0) Lymphocytes (%) (Auto) 17.6 % (10.0-50.0) Monocytes (%) (Auto) 10.6 % (0.0-12.0) Eosinophils (%) (Auto) 3.0 % (0.0-7.0) Basophils (%) (Auto) 0.6 % (0.0-2.0) Neutrophils # (Auto) 5.0 10 ^3/uL (1.6-8.6) Lymphocytes # (Auto) 1.3 10 ^3/uL (0.4-5.4) Monocytes # (Auto) 0.8 10 ^3/uL (0-1.3) Eosinophils # (Auto) 0.2 10 ^3/uL (0-0.8) Basophils # (Auto) 0 10 ^3/uL (0-0.2) Nucleated Red Blood Cells 0.1 % Sodium Level 141 mmol/L (136-145) Potassium Level 4.2 mmol/L (3.5-5.1) Chloride Level 109 mmol/L (98-107) Carbon Dioxide Level 24 mmol/L (20-31) Anion Gap 8 (5-15) Blood Urea Nitrogen 16 mg/dL (9-23) Creatinine 0.92 mg/dL (0.550-1.02) Glomerular Filtration Rate Calc 65 mL/min (>90) BUN/Creatinine Ratio 17.4 (10.0-20.0) Serum Glucose 107 mg/dL (74-106) Calcium Level 9.3 mg/dL (8.7-10.4) Random Vancomycin Level 15.7 ug/mL (5-10) Test 05/04/25 10:00 05/03/25 05:40 05/02/25 11:37 05/02/25 11:05 Vancomycin Level Trough 22.7 ug/mL (5-10) Total Bilirubin 0.6 mg/dL (0.2-1.0) Aspartate Amino Transferase (AST) 22 U/L (13-40) Alanine Aminotransferase (ALT) 18 U/L (7-40) Alkaline Phosphatase 63 U/L (46-116) Total Protein 5.8 g/dL (5.7-8.2) Albumin 3.8 g/dL (3.2-4.8) Prothrombin Time 11.9 sec (9.3-11.8) Prothrombin Time INR 1.14 (0.9-1.15) Activated Partial Thromboplast Time 28.4 SEC (24.5-34.5) Lactic Acid Level 1.6 mmol/L (0.4-2.0) B-Type Natriuretic Peptide 38.46 pg/mL (0-100) Urine Color Light-yellow (Yellow) Urine Clarity Clear (Clear) Urine pH 6.5 (5.0-9.0) Urine Specific [place] 1.011 (1.001-1.035) Urine Protein Negative (Negative) Urine Ketones Negative (Negative) Urine Blood Negative /uL (Negative) Urine Nitrite Negative (Negative) Urine Bilirubin Negative (Negative) Urine Urobilinogen Normal mg/dL (Negative) Urine Leukocyte Esterase Negative /uL (Negative) Urine RBC <1 /hpf (0 - 4) Urine Microscopic WBC 1 /HPF (0-5) Urine Squamous Epithelial Cells Few /hpf (<5) Urine Bacteria Few /hpf (None Seen) Urine Glucose 4+ mg/dL (Normal) Other Laboratory Tests 05/06/25 06:49 Brief Hx & Hospital Course: History of Present Illness The patient is a a 74-year-old female morbidly obese with past medical history of anxiety, Coronary artery disease, CHF, COPD, depression, diabetes mellitus, hyperlipidemia, UTIs, and hypertension who presented to [facility] ED for evaluation of altered level of consciousness. As reported by EMS, patient's family called due to patient's change in mental status. Patient was seen and evaluated in the ED, laboratory data shows WBC 8.3, platelets 199, sodium 143, potassium 4.4, BUN 36, creatinine 1.64, glucose 207, calcium 9.4, blood pressure 173/63, heart rate 68, temperature 98.0 F, O2 saturation 96% on oxygen. Chest x-ray revealing multifocal airspace disease and/or pulmonary vascular congestion. Patient was started on IV antibiotic regimen vancomycin, IV cefepime, please see medication orders section in the computer. On my assessment, patient denied chest pain, no headache, no dizziness, currently on oxygen, no diaphoresis, no diarrhea, no nausea, no vomiting, no fever, no chills. Patient was admitted for further evaluation and medical management. Course of hospitalization: Patient was started on IV antibiotic therapy he has generalized hydration. Blood pressure was controlled. Neurology consultation was obtained. CT scan of the head was negative for any acute intracranial pathology. Patient is now normal mentation. Patient has been afebrile, without white blood cell count. His blood cultures. Pt will be discharged back home and continue with nasal cannula at 2 L/min as needed as well as home his last CPAP for obstructive sleep She will follow up with the PCP in 1-2 weeks. All questions answered. Physical examination General: Alert and Oriented x3. No acute distress. Well-nourished. Obese Eyes: EOMI. Anicteric. HENT: Moist mucous membranes. Lungs: Clear to auscultation bilaterally. No accessory muscle use. Cardiovascular: Regular rate and rhythm. No murmur. No JVD. Abdomen: Soft, non-tender and non-distended. No palpable masses. Extremities: No edema. Non-tender. Skin: No rashes or lesions. Warm. Neurologic: No focal neurological deficits. CN II-XII grossly intact, but not individually tested. Psychiatric: Cooperative. Appropriate mood and affect. Total time spent with patient discussing and formulating plan of care: 35 minutes. This medical document was created using an electronic medical record system with [employer] dictation system. Although this document has been carefully reviewed, there may still be some phonetic and typographical errors. These areas are purely typographical due to imperfections of the software programs, and do not reflect any compromise in the patient's medical care. Condition at Discharge: Fair Final Diagnosis/Problems List Metabolic encephalopathy secondary to UTI Diagnosis: Complicated cystitis Accelerated hypertension Obstructive sleep apnea Obesity Discharge Disposition: Home Discharge Instruct/Medications Diet: Consistent carbohydrate, Cardiac 2g Na,low cholest Activity: No Restrictions, As Tolerated Follow Up/Referral: Follow up with PCP 1-2 weeks, Dr. Alvarez Medications: Resume all home Scheduled Albuterol Sulfate (Albuterol Sulfate Hfa), 1 PUFF INH Q4HR PRN, (Reported) Alendronate Sodium (Alendronate Sodium), 1 TAB PO QWEEKLY, (Reported) Aspirin (Aspirin 81), 81 MG OR DAILY Baclofen (Baclofen), 10 MG PO TID, (Reported) Cefdinir (Cefdinir), 1 CAP PO BID Cholecalciferol (D3 Super Strength), 1 CAP PO DAILY, (Reported) Clopidogrel Bisulfate (Plavix), 1 TAB PO DAILY Dapagliflozin Propanediol (Farxiga), 10 MG PO DAILY, (Reported) Ferrous Sulfate (Iron), 325 MG PO BID Furosemide (Lasix), 40 MG PO DAILY, (Reported) Metoprolol Succinate (Toprol Xl), 25 MG PO DAILY Ondansetron Odt 4MG Tab (Zofran Po), 4 MG PO DAILY, (Reported) Pantoprazole Sodium Sesquihydr (Pantoprazole Sodium), 40 MG PO DAILY Pregabalin (Pregabalin), 1 CAP PO BID, (Reported) Rivaroxaban (Xarelto Tablet), 20 MG PO DAILY, (Reported) Sacubitril-Valsartan (Entresto 24-26 mg), 1 TAB PO BID Semaglutide (Ozempic), 1 MG SC QWEEKLY, (Reported) Simvastatin (Simvastatin), 20 MG PO HS, (Reported) Sucralfate (Carafate), 1 GM OR Q6HR Scheduled PRN Meclizine HCl (Meclizine Hydrochloride), 1 TAB PO [id number] PRN for NAUSEA / VOMITING, (Reported) Tramadol Hcl (Tramadol Hcl), 50 MG PO BIDP PRN for PAIN SCALE 7 THRU 10, (Reported) Miscellaneous Medications Insulin Degludec (Tresiba), 80 UNIT SC, (Reported) 36 Discharge Statement: "Patient was advised to return to the ER or call 911 if any headaches, dizziness, shortness of breath, chest pain, abdominal pain, bleeding, fevers, or worsening of medical condition. Patient was counseled about treatment plan, medications, possible side effects, patientverbalized understanding. All questions were answered to the best of my ability. This discharge took greater then 30 minutes in planning, reviewing documentation, counseling the patient, and discussing with other team members." ASSESSMENT ASSESSMENT Assessment Metabolic encephalopathy secondary to UTI Date of Service: May 09, 2025 Billing Provider: ALISE WATERS NP Common Visit Codes: [id number] DISCH DAY >30min ALISE WATERS NP May 09, 2025 16:24
--- NOTE | 2025-05-09 23:10 | DVHPN2 ---
Progress Note - Dictate Date Seen: May 09, 2025 Medical Necessity Reason Pt with a Central, PICC or Fol: No Subjective Ms. Aparicio is a 76 years old right-handed female with a history of hypertension, diabetes, dyslipidemia, coronary artery disease, congestive heart failure, anxiety, depression, cervical cancer, colon cancer, she came to the [facility] on 05/02/2025 with a chief complaint of ALOC I have seen and examined the patient, I have talked to her nurse, mentally she is doing fine, but she had desaturation, gait disturbance earlier today Urinalysis, 05/02/2025: WBC: 1, urine leukocyte esterase: Negative WBC/HB/PLT/MCV, 05/06/25: 7.1/11.4/175/76.9 BUN/CR, 05/02/2025: 36/1.64, 05/03/2025: 26/1.16, 05/06/2025: 16/0.92 GFR, 05/02/2025: 32, 05/03/2025: 49, 05/06/2025: 65 Liver function tests, 05/02/2025: Unremarkable Vitamin B12, 05/08/2025: 2791 Folic acid, 05/08/2025: 30.19 TSH, 05/08/2025: 2.28 CT head, 05/02/2025: No acute intracranial pathology. Mild cortical atrophy vital signs Vital Sign Date Time Temp Pulse Resp B/P (MAP) Pulse Ox O2 Delivery O2 Flow Rate FiO2 05/09/25 21:35 60 130/67 05/09/25 21:00 98.7 20 99 98.7 05/09/25 08:00 Nasal Cannula* 2 28 Total Intake and Output 05/08/25 05/08/25 05/09/25 14:59 22:59 06:59 Intake Total 50 ml 200 ml 280 ml Output Total 850 ml 400 ml Balance 50 ml -650 ml -120 ml medications Current Medications Medications Dose Ordered Sig/Elvira Route Start Time Stop Time Status Last Admin Dose Admin Cefepime HCl 50 ml @ 12.5 mls/hr Q8HR IV 05/02/25 14:00 UNV Cefepime HCl 50 ml @ 12.5 mls/hr Q12H IV 05/02/25 13:00 Hold 05/04/25 00:23 12.5 MLS/HR Aspirin 81 mg DAILY PO 05/03/25 10:00 05/09/25 09:08 81 MG Atorvastatin Calcium 10 mg HS PO 05/02/25 22:00 05/09/25 21:36 10 MG Sodium Chloride 10 ml Q8HR IV 05/02/25 14:00 05/09/25 21:35 10 ML Docusate Sodium 100 mg BIDPRN PRN PO 05/02/25 13:45 Acetaminophen 650 mg Q6HP PRN PO 05/02/25 13:45 05/08/25 02:21 650 MG Hydralazine HCl 10 mg Q6HP PRN IV 05/02/25 14:45 05/02/25 14:55 10 MG Carvedilol 3.125 mg Q12HR PO 05/02/25 22:00 05/09/25 21:35 3.125 MG Amlodipine Besylate 5 mg DAILY PO 05/03/25 10:00 05/09/25 09:09 5 MG Ceftriaxone Sodium 50 ml @ 100 mls/hr DAILY@09 IV 05/04/25 09:00 05/09/25 09:08 100 MLS/HR Ciprofloxacin HCl 1 drop DAILY EACHEYE 05/05/25 22:00 05/09/25 09:09 1 DROP Furosemide 20 mg DAILY PO 05/08/25 10:00 05/09/25 09:09 20 MG objective General: the patient is well developed and nourished. No acute distress. MENTAL STATUS: Subjective SPEECH, LANGUAGE, HIGHER CORTICAL FUNCTION: no aphasia or dysathria. CRANIAL NERVES: Pupils are equal, round and reactive. EOMs full and conjugate. No nystagmus. Facial sensation intact in all three divisions bilaterally. Mandibular strength intact. Facial muscles symmetrical and strength intact. SENSATION: Sensation to touch and pinprick is normal. MOTOR: Normal tone in the upper and lower extremity. Normal muscle bulk. No fasciculations. No abnormal movements or posturing. Muscle strength of the major groups in the extremities is 5/5. REFLEXES: Deep tendon reflexes are symmetrically diminished. No pathological reflexes. CEREBELLAR/COORDINATION: Finger to nose is normal bilaterally. GAIT/STATION: deferred. laboratory and microbiology Laboratory Tests 05/06/25 06:49 Test 05/06/25 06:49 Range/Units Serum Glucose 107 H 74-106 mg/dL Problem List Altered mental status, hallucination, resolved Acute metabolic encephalopathy secondary to dehydration/acute kidney failure Morbid obesity Sleep-related breathing disorder ? Obesity hypoventilation syndrome Diabetic polyneuropathy though with an unremarkable sensory examination Assessment/Plan Monitoring Supportive treatment Telemetry EEG, okay as outpatient [facility] Foot care Daily foot inspection Soft, wide and protect she was only Daughter is to observe her sleep symptoms Weight control Follow up with me on discharge More recommendation per clinical course This medical document was created using an electronic medical record system with [email or web address] dictation system. Although this document has been carefully reviewed, there may still be some phonetic and typographical errors. These areas are purely typographical due to imperfections of the software programs, and do not reflect any compromise in the patient's medical care. Prognosis poor Dietary Evaluation Review Comments: 1) Glucerna 240ml BID 2) Monitor PO intake, lab values, wt trends, I/O Expected Outcomes/Goals: To meet >75% estimated needs FU 5-7 days Plan discussed with: Other Is the fluid challenge complet: Yes Date of Reassessment: May 02, 2025 Time of Reassessment: 1542 Blood Culture Time: 1105 Time Antibiotics Given: 1115 Systolic BP: 166 Diastolic BP: 59 Blood Pressure Mean: 94 Respiration: 16 Respiratory Effort: Labored Respiratory Pattern: Regular Oxygen Saturation: 97 Pulse Rate: 63 Pulse Location: Dorsalis Pedis Pulse Strength: Normal Pulse Assessment Method: Palpation Pulse Rhythm: Regular Capillary Refill: < 3 seconds Heart Sounds: S1 & S2 Breath sounds: Diminished Skin Moisture: Dry Skin Tugor: WNL Skin Color: WNL DOLORES JAIN MD May 09, 2025 23:10
--- NOTE | 2025-05-10 00:22 | DVHEEG2 ---
Neurology EEG Procedural Note Procedural Note EXAM DATE: 05/09/2025 REFERRING DOCTOR: Dr. Jain TECHNIQUE: Eighteen channels of EEG, 2 channels of EOG, and 1 channel of EKG were recorded using the International 10/20 system. CLINICAL DATA: The patient was referred for an EEG evaluation for the evidence of seizure disorder. MEDICATIONS: See the chart BACKGROUND ACTIVITY: She was asleep during the recording, during brief arousals, the background activity appeared to be poorly regulated 9-10 Hz rhythmic waveforms, symmetrically distributed over both posterior quadrants and was reactive to external stimuli. ACTIVATION: Hyperventilation: Not done Photic Stimulation: Not done Sleep: Noticed IMPRESSION: This is a normal EEG. No focal, lateralized, or epileptiform features are noted. If clinically indicated to rule out a seizure disorder, recommend repeat EEG with sleep deprivation. The EKG channel showed a regular heart rate of 72 per minute [place] [address] DOLORES JAIN MD May 10, 2025 00:22
[2025-05-10 00:40] VITALS: BP 106/72; PULSE 69; RESP 22; TEMP 98.5; O2SAT 99
[2025-05-10 05:00] VITALS: BP 129/69; PULSE 69; RESP 20; TEMP 98.1; O2SAT 99
[2025-05-10 08:00] VITALS: PULSE 73
[2025-05-10 08:07] LABS: Immunoglobulin A 230 mg/dL (64-422); Immunoglobulin G, Serum 478 mg/dL (586-1602); Immunoglobulin M 150 mg/dL (26-217)
[2025-05-10 09:00] VITALS: BP 116/67; PULSE 74; RESP 18; TEMP 98; O2SAT 99
[2025-05-10 09:56] VITALS: BP 116/67; PULSE 74
[2025-05-10 13:00] VITALS: BP 143/58; PULSE 79; RESP 16; TEMP 97.1; O2SAT 94
--- NOTE | 2025-05-10 14:03 | DVHPN2 ---
Subjective Denies any symptoms Reviewed: Care Plan, H&P, Labs, Medications, Previous Orders, Radiology Changes from previous H/P or p: No Changes General: Per HPI Eyes: No Pain, No Vision change, No Conjunctivae inflammation, No Eyelid inflammation, No Other, No Redness ENT: No Ear pain, No Ear discharge, No Nose pain, No Nose discharge, No Nose congestion, No Mouth pain, No Mouth swelling, No Throat pain, No Throat swelling, No Other Cardiovascular: No Chest Pain, No Palpitations, No Orthopnea, No Paroxysmal Noc. Dyspnea, No Edema, No Lt Headedness, No Other Respiratory: No Cough, No Dry, No Shortness of breath, No SOB with excertion, No Wheezing, No Hemoptysis, No Pleuritic Pain, No Sputum, No Other Gastrointestinal: No Nausea, No Vomiting, No Abdominal Pain, No Diarrhea, No Constipation, No Melena, No Hematochezia, No Other Genitourinary: Dysuria; No Frequency, No Incontinence, No Hematuria, No Retention, No Other Musculoskeletal: other (bilateral leg pain); No neck pain, No shoulder pain, No arm pain, No back pain, No hand pain, No leg pain, No foot pain Skin: No Rash, No Lesions, No Jaundice, No Bruising, No Other Objective Vitals Vital Signs Date Time Temp Pulse Resp B/P (MAP) Pulse Ox O2 Delivery O2 Flow Rate FiO2 05/10/25 09:56 74 05/10/25 09:00 98.0 18 116/67 (83) 99 98.0 05/10/25 08:00 Nasal Cannula* 2 28 Intake/Output Intake and Output 05/10/25 07:00 Intake Total 660 ml Output Total 970 ml Balance -310 ml Intake Oral 610 ml IV Total 50 ml Output Urine Total 970 ml General Appearance: Alert, Oriented X3, No acute distress HEENT: Atraumatic, Mucous membr. moist/pink Neck: Supple Cardiovascular: Regular rate, Normal S1, Normal S2, No murmurs, Gallops, Rubs Abdomen: Normal bowel sounds, Soft, No tenderness, Other (colostomy fn) Neuro: Normal speech, Normal tone, Sensation intact, Cranial nerves 3-12 NL Skin: Dry, Intact Psych/Mental Status: Mental status NL Medications Current Medications Medications Dose Ordered Sig/Elvira Route Start Time Stop Time Status Last Admin Dose Admin Cefepime HCl 50 ml @ 12.5 mls/hr Q8HR IV 05/02/25 14:00 UNV Cefepime HCl 50 ml @ 12.5 mls/hr Q12H IV 05/02/25 13:00 Hold 05/04/25 00:23 12.5 MLS/HR Aspirin 81 mg DAILY PO 05/03/25 10:00 05/10/25 08:54 81 MG Atorvastatin Calcium 10 mg HS PO 05/02/25 22:00 05/09/25 21:36 10 MG Sodium Chloride 10 ml Q8HR IV 05/02/25 14:00 05/10/25 06:03 10 ML Docusate Sodium 100 mg BIDPRN PRN PO 05/02/25 13:45 Acetaminophen 650 mg Q6HP PRN PO 05/02/25 13:45 05/08/25 02:21 650 MG Hydralazine HCl 10 mg Q6HP PRN IV 05/02/25 14:45 05/02/25 14:55 10 MG Carvedilol 3.125 mg Q12HR PO 05/02/25 22:00 05/10/25 08:55 3.125 MG Amlodipine Besylate 5 mg DAILY PO 05/03/25 10:00 05/10/25 08:54 5 MG Ceftriaxone Sodium 50 ml @ 100 mls/hr DAILY@09 IV 05/04/25 09:00 05/10/25 08:53 100 MLS/HR Ciprofloxacin HCl 1 drop DAILY EACHEYE 05/05/25 22:00 05/10/25 08:54 1 DROP Furosemide 20 mg DAILY PO 05/08/25 10:00 05/10/25 08:55 20 MG Laboratory Results Laboratory Tests 05/06/25 06:49 Urinalysis Test 05/02/25 11:05 Urine Color Light-yellow (Yellow) Urine Clarity Clear (Clear) Urine pH 6.5 (5.0-9.0) Urine Specific [place] 1.011 (1.001-1.035) Urine Protein Negative (Negative) Urine Ketones Negative (Negative) Urine Blood Negative /uL (Negative) Urine Nitrite Negative (Negative) Urine Bilirubin Negative (Negative) Urine Urobilinogen Normal mg/dL (Negative) Urine Leukocyte Esterase Negative /uL (Negative) Urine RBC <1 /hpf (0 - 4) Urine Microscopic WBC 1 /HPF (0-5) Urine Squamous Epithelial Cells Few /hpf (<5) Urine Bacteria Few /hpf (None Seen) H Urine Glucose 4+ mg/dL (Normal) H Microbiology Microbiology Date/Time Source Procedure Growth Status 05/02/25 11:36 Blood Blood Culture - Final NO GROWTH AFTER 5 DAYS OF INCUBATION. Complete Labs and/or images reviewed: Labs reviewed by me, Image(s) reviewed by me Assessment/Plan Assessment/Plan Impression: -metabolic encephalopathy -complicated cystitis -dehydration -obesity -primary hypertension Plan: -patient to be discharged home today given patient was not able to ambulate yesterday after being discharged. Patient is more mobile, with the patient's son stating he is able to care for as she is close to her baseline status. Physical examination General: Alert and Oriented x3. No acute distress. Well-nourished. Obese Eyes: EOMI. Anicteric. HENT: Moist mucous membranes. Lungs: Clear to auscultation bilaterally. No accessory muscle use. Cardiovascular: Regular rate and rhythm. No murmur. No JVD. Abdomen: Soft, non-tender and non-distended. No palpable masses. Extremities: No edema. Non-tender. Skin: No rashes or lesions. Warm. Neurologic: No focal neurological deficits. CN II-XII grossly intact, but not individually tested. Psychiatric: Cooperative. Appropriate mood and affect. Total time spent with patient discussing and formulating plan of care: 35 minutes. This medical document was created using an electronic medical record system with [employer] dictation system. Although this document has been carefully reviewed, there may still be some phonetic and typographical errors. These areas are purely typographical due to imperfections of the software programs, and do not reflect any compromise in the patient's medical care. Plan discussed with: Patient, Other (RN) My Orders Orders - ALISE WATERS NP Procedure Category Date Status Time Discharge DISCHARGE 05/10/25 Verified 13:58 Date of Service: May 10, 2025 Billing Provider: ALISE WATERS NP Common Visit Codes: [id number] INP/OBS CARE(HIGH) ALISE WATERS NP May 10, 2025 14:03
== END 2025-05-10 16:55 | disposition home or self-care (01) | DRG 177 ==
LOC: EDBD 09:12 → ER 09:17 → OVERFLOW 16:41 → TELE-WESTW 05-03 15:16
PROVIDERS: ADMIT Nurse Practitioner Acute Care; ATTEND Nurse Practitioner Acute Care
PROC: 5A09357 Assistance with Respiratory Ventilation, Less than 24 Consecutive Hours, Continuous Positive Airway Pressure (ICD-10-PCS; principal; 2025-05-07)
DX: J15.69 Pneumonia due to other Gram-negative bacteria (principal); G93.41 Metabolic encephalopathy; N17.9 Acute kidney failure, unspecified; E66.2 Morbid (severe) obesity with alveolar hypoventilation; J44.0 Chronic obstructive pulmonary disease with (acute) lower respiratory infection; J15.9 Unspecified bacterial pneumonia; E11.65 Type 2 diabetes mellitus with hyperglycemia; E11.42 Type 2 diabetes mellitus with diabetic polyneuropathy; E78.5 Hyperlipidemia, unspecified; E86.0 Dehydration; F32.A Depression, unspecified; I11.0 Hypertensive heart disease with heart failure; I25.10 Atherosclerotic heart disease of native coronary artery without angina pectoris; I50.9 Heart failure, unspecified; N30.90 Cystitis, unspecified without hematuria; Z82.3 Family history of stroke; Z82.49 Family history of ischemic heart disease and other diseases of the circulatory system; Z83.3 Family history of diabetes mellitus; Z85.038 Personal history of other malignant neoplasm of large intestine; Z85.41 Personal history of malignant neoplasm of cervix uteri; Z90.710 Acquired absence of both cervix and uterus; Z93.3 Colostomy status; Z79.899 Other long term (current) drug therapy; Z79.2 Long term (current) use of antibiotics; Z79.4 Long term (current) use of insulin; Z68.38 Body mass index [BMI] 38.0-38.9, adult
CPT/HCPCS: 36415; 70450; 71045; 80048; 80053; 80202; 81001; 82565; 82607; 82746; 82784; 82962; 83605; 83880; 84439; 84443; 85025; 85610; 85730; 86334; 87040; 93005; 93306; 94660; 95819; 96365; 96366; 96367; 96375; 97110; 97116; 97163; 97530; 99291; G0378; J1815